=== PATIENT | female | born 1965 | race Caucasian/White ===

== ENCOUNTER 2017-02-16 21:50 | Emergency (ER) | payer OTHER ==
[~2017-02-16] VITALS: Ht 170.2 cm; Wt 119.2 kg
[~2017-02-16 21:50] MED LIST: BUPR75TA20 PO; CITA40TA4 PO; HYDR12.55 PO; ONDA4TAB10 SL
[2017-02-16 21:54] VITALS: TEMP 37.1; Ht 170.2 cm; Wt 119.2 kg
[2017-02-16] MEDS ORDERED: OXYCODONE/ACETAMINOPHEN 5-325 TAB PO STA (22:03)
--- NOTE | 2017-02-16 22:31 | DIAGNOSTIC IMAGING REPORT ---
RIGHT WRIST MIN 3 VIEWS ROUTINE CLINICAL HISTORY: Pt fell injuring right wrist Right trauma. Pain. COMPARISON: None. DISCUSSION: The bones and joint spaces appear intact. There is no evidence of fracture, dislocation or bony disease. There is no evidence for soft tissue swelling. IMPRESSION: Negative study. Electronically signed by: Charlie Dominguez M.D. 02/16/2017 10:30 PM Dictated Date/Time: 02/16/2017 10:29 PM
--- NOTE | 2017-02-16 22:34 | DIAGNOSTIC IMAGING REPORT ---
RIGHT ELBOW MIN 3 VIEWS ROUTINE CLINICAL HISTORY: Pt fell injuring right elbow Right trauma. Pain. COMPARISON: None. DISCUSSION: Cortical fracture radial head. Fracture extends to the articular services. No significant displacement. Joint effusion. Study is negative for dislocation. Pre-existing calcific medial and lateral epicondylitis. There is no evidence for soft tissue swelling. IMPRESSION: Fracture radial head. Nondisplaced. Joint effusion. Electronically signed by: Charlie Dominguez M.D. 02/16/2017 10:32 PM Dictated Date/Time: 02/16/2017 10:31 PM
[2017-02-16] MEDS ORDERED: CITA40TA4 PO (22:51)
[2017-02-16] MEDS ORDERED: TRIA37.5 PO (22:51)
[2017-02-16] MEDS ORDERED: BUTACAP10 PO (22:51)
[2017-02-16] MEDS ORDERED: AMLO-110 PO (22:51)
[2017-02-16] MEDS ORDERED: BUPR-79 PO (22:51)
[2017-02-16] MEDS ORDERED: FEXO1TAB49 PO (22:51)
--- NOTE | 2017-02-16 23:14 | EMERGENCY ROOM VISIT NOTE ---
ED Visit Note First contact with patient: 21:59 CHIEF COMPLAINT: Wrist injury HISTORY OF PRESENT ILLNESS: This 51-year-old female patient presents to the emergency department ambulatory complaining of pain in the right wrist after a fall. The patient states that she tripped and fell, landing onto her right arm. She reports pain in the right wrist with radiation into the right forearm and elbow. The patient is able to move their wrist and elbow. The patient states the pain is sharp and 5/10. No laceration, no weakness. No numbness or tingling. The patient denies any other injury. She did not hit her head. She denies any pain of the shoulder or hand. REVIEW OF SYSTEMS: A 6 system review of systems was performed with positives and pertinent negatives in the HPI. ALLERGIES: Morphine MEDICATIONS: See med list PMH: Hypertension SOCIAL HISTORY: The patient lives locally with family. Nonsmoker. PHYSICAL EXAM: Vital Signs: Reviewed Nurse's notes, vital signs stable. GENERAL : This is a 51-year-old female, in no acute distress, but appears to be in pain , well-developed, well-nourished. NEURO: Alert and oriented to person place and time. Normal sensation to light and sharp touch. MUSCULOSKELETAL: There is no deformity of the right elbow or wrist. There is tenderness to palpation of the right elbow and the lateral right wrist. There is no snuffbox tenderness. Range of motion of the elbow and wrist are full. No tenderness of the shoulder or humerus. No tenderness of the hand or fingers. Leather Grainer strength 5/5. Radial pulse 2+. SKIN: Normal and intact. The hand is warm and well perfused with capillary refill less than 2 seconds. RADIOGRAPHIC FINDINGS: RIGHT ELBOW MIN 3 VIEWS ROUTINE DISCUSSION: Cortical fracture radial head. Fracture extends to the articular services. No significant displacement. Joint effusion. Study is negative for dislocation. Pre-existing calcific medial and lateral epicondylitis. There is no evidence for soft tissue swelling. IMPRESSION: Fracture radial head. Nondisplaced. Joint effusion. RIGHT WRIST MIN 3 VIEWS ROUTINE DISCUSSION: The bones and joint spaces appear intact. There is no evidence of fracture, dislocation or bony disease. There is no evidence for soft tissue swelling. IMPRESSION: Negative study. EMERGENCY DEPARTMENT COURSE: I examined the patient. She was medicated with 1 tablet Percocet for pain. X-rays of the right elbow and wrist were reviewed by myself and radiology and showed a nondisplaced right radial head fracture. The patient was placed in an arm sling. Neuro vascular status was reassessed and was intact. Conservative measures were discussed with the patient. She will be given a short course of Percocet for pain. The PDMP was queried and no red flags were identified. She will follow-up with orthopedics. She verbalized understanding of my assessment and treatment plan. The patient was discharged home in good condition. DIAGNOSIS: Right radial head fracture Current/Historical Medications Scheduled Amlodipine (Norvasc), 5 MG PO DAILY Bupropion (Wellbutrin Sr), 150 MG PO BID Citalopram (Citalopram Hydrobromide), 1 TAB PO DAILY Ondasetron Odt (Zofran Odt), 4-8 MG SL Q6H Triamterene/Hctz (Dyazide 37.5MG/25MG), 1 TAB PO DAILY Scheduled PRN Npsxkehodb-Pmdktpxfaqcwn-Flqko (Esgic 325/50/40MG), 1 CAP PO Q4 PRN for Migraine Fexofenadine Hcl (Ellie Allergy), 1 TAB PO DAILY PRN for ALLERGIC REACTION Allergies Coded Allergies: Morphine (Verified Allergy, Severe, GI SYMPTOMS, 10/22/16) Vital Signs Date Time Temp Pulse Resp B/P Pulse Ox O2 Delivery O2 Flow Rate FiO2 02/16/17 23:30 78 16 158/95 95 02/16/17 21:54 37.1 96 18 164/109 93 Room Air Medications Administered Medications (Trade) Dose Ordered Sig/Simba Route Start Time Stop Time Status Last Admin Dose Admin Oxycodone/ Acetaminophen (Percocet 5-325mg Tab) 1 tab NOW STAT PO 02/16/17 22:03 02/16/17 22:04 DC 02/16/17 22:32 1 TAB Oxycodone/ Acetaminophen (Percocet 5/ 325MG Home Pack) 1 homepack UD ONCE PO 02/16/17 23:15 02/16/17 23:16 DC 02/16/17 23:20 1 HOMEPACK Departure Information Impression Primary Impression: Radial head fracture Dispostion Home / Self-Care Condition GOOD Prescriptions Oxycodone/Acetaminophen 5MG/325MG (PERCOCET 5MG/325MG) Tab 1-2 TABS PO Q4H Y for Pain, #15 TAB For Initial Treatment Prov: Zulma Reynoso PA-C 02/17/17 Referrals Leoncio Corbin M.D. (PCP) Patient Instructions My [facility] Additional Instructions You have been treated in the Emergency Department for arm pain. You have received pain medicine in the emergency department which impairs your ability to operate a vehicle. It is illegal for you to drive after receiving these medicines. You have been prescribed Percocet to be used for pain control. This is a narcotic medication. You cannot drive or consume alcohol while on this medicine. This medicine should only be used for pain that cannot be controlled with euji-nro-pjjakne pain medicines. For pain control, you can use the following gdlg-lje-gkkjyhc medicines (if >12 yo): - Regular strength (325mg/tab) Tylenol (acetaminophen) 2 tabs every 4-6 hours as needed. Do not exceed 12 tablets in a 24 hour period. Avoid taking more than 4 grams (4000 mg) of Tylenol per day. This includes any other sources of acetaminophen you may take on a regular basis. - Regular strength (200 mg/tab) Advil (ibuprofen) 1-2 tabs every 4-6 hours as needed. Do not exceed a dose of 3200 mg per day. If this is a recent injury (<24 hrs), ice can be applied to the area of pain for the first 3 days to help decrease pain and inflammation. Follow-up with orthopedics or your primary care provider if there is persistent or worsening pain. Return to the Emergency Department if your current symptoms worsen despite treatment course outlined above, or if you develop any of the following symptoms : intractable pain despite aforementioned treatment course or new onset of numbness or tingling of the fingers. Problem Qualifiers Primary Impression: Radial head fracture Encounter type: initial encounter Fracture type: closed Fracture alignment : nondisplaced Laterality: right Qualified Codes: S52.124A - Nondisplaced fracture of head of right radius, initial encounter for closed fracture
[2017-02-16] MEDS ORDERED: PERCOCET HOME PACK PO ONE (23:15)
[2017-02-16 23:30] VITALS: BP 158/95; PULSE 78; O2SAT 95
[2017-02-17] MEDS ORDERED: OXYC-57 PO (19:03)
== END 2017-02-16 23:31 | disposition home or self-care (01) ==
LOC: C.EDB 21:51 → C.EDA 23:31
DX: S52.124A Nondisplaced fracture of head of right radius, initial encounter for closed fracture (principal); W01.0XXA Fall on same level from slipping, tripping and stumbling without subsequent striking against object, initial encounter; I10 Essential (primary) hypertension; Z79.899 Other long term (current) drug therapy

== ENCOUNTER 2019-01-28 09:31 | Inpatient (IN) ==
[2019-01-28] MEDS ORDERED: methylPREDNISolone 125 MG/2 ML VIAL IV STA (10:02)
[2019-01-28] MEDS ORDERED: ALBUT/IPRATROP 3MG/0.5MG NEB 3 ML VIAL NEB STA ×2 (10:02→15:49)
[2019-01-28] MEDS ORDERED: FAMOTIDINE 20MG/5ML IV PUSH IV STA (10:15)
[2019-01-28 10:32] LABS: Basophils # (auto) 0.02 K/uL (0-0.2); Basophils % (auto) 0.3 %; Eosinophils # (auto) 0.24 K/uL (0-0.5); Eosinophils % (auto) 3.9 %; Hematocrit (blood only) 44.2 % (37-47); Hemoglobin 14.9 g/dL (12.0-16.0); Immature Granulocytes # (auto) 0.01 K/uL (0.00-0.02); Immature Granulocytes % (auto) 0.2 %; Lymphocytes # (auto) 1.13 K/uL (1.2-3.4); Lymphocytes % (auto) 18.3 %; Mean Corpuscular Hgb Conc 33.7 g/dL (32-36); Mean Corpuscular Volume 87.5 fL (80-100); Mean Platelet Volume 9.9 fL (7.4-10.4); Monocytes # (auto) 0.44 K/uL (0.11-0.59); Monocytes % (auto) 7.1 %; Neutrophils # (auto) 4.33 K/uL (1.4-6.5); Neutrophils % (auto) 70.2 %; Platelet Count 277 K/uL (130-400); RDW Coefficient of Variation 13.6 % (11.5-14.5); RDW Standard Deviation 43.2 fL (36.4-46.3); Red Blood Count 5.05 M/uL (4.2-5.4); White Blood Count 6.17 K/uL (4.8-10.8)
[2019-01-28 10:50] LABS: Influenza A virus by PCR Neg for Influ A (Neg); Influenza B virus by PCR Neg for Influ B (Neg)
[2019-01-28 10:53] LABS: Alanine Aminotransferase 19 U/L (12-78); Albumin Level 3.4 gm/dl (3.4-5.0); Aspartate Aminotransferase 10 U/L (15-37); BUN Creatinine Ratio 17.3 (10-20); Blood Urea Nitrogen 13 mg/dl (7-18); Calcium 8.8 mg/dl (8.5-10.1); Carbon Dioxide 32 mmol/L (21-32); Chloride 103 mmol/L (98-107); Creatinine Clr Calc Pharmacy 115.5 ml/min; Est GFR (Non-African American) 93.1; Glucose 105 mg/dl (70-99); Potassium 3.7 mmol/L (3.5-5.1); Sodium 140 mmol/L (136-145)
[2019-01-28 10:58] LABS: Albumin Globulin Ratio 0.8 (0.9-2); Alkaline Phosphatase 35 U/L (45-117); Bilirubin,Total 0.7 mg/dl (0.2-1); Globulin 4.2 gm/dl (2.5-4.0); NT Pro B Type Natriuretic Pept 66 pg/ml (0-900); Total Protein 7.6 gm/dl (6.4-8.2); Troponin I < 0.015 ng/ml (0-0.045)
[2019-01-28] MEDS ORDERED: ALBUT/IPRATROP 3MG/0.5MG NEB 3 ML VIAL NEB ONE (11:00)
[2019-01-28] MEDS ORDERED: ACETAMINOPHEN 1,000 MG/100 ML VIAL IV STA (11:00)
--- NOTE | 2019-01-28 14:04 | XRay Report ---
XR chest 2V routine CLINICAL HISTORY: sob, cough COMPARISON STUDY: Chest radiograph December 27, 2017. FINDINGS: There are cholecystectomy clips. Lung volumes are mildly diminished. There is no pneumothor ax. Bibasilar opacities favor atelectasis. There is no consolidation. Cardiomegaly without evidence f or pulmonary edema. Appearance of the chest is unchanged. IMPRESSION: 1. No acute cardiopulmonary findings. 2. Bibasilar opacities which favor atelectasis. Electronically signed by: Robb Stanford M.D. 01/28/2019 2:02 PM
[2019-01-28] MEDS ORDERED: MAGNESIUM SULFATE / D5W 1 GM/100 ML BAG IV ONE (14:23)
[2019-01-28] MEDS ORDERED: SODIUM CHLORIDE 0.9% 1000ML 1,000 ML IV ONE (15:49)
--- NOTE | 2019-01-28 16:21 | History & Physical Report ---
Date of Service January 28, 2019 Assessment & Plan (1) Asthma exacerbation: The patient received IV steroids in the emergency department. She will be continued on such with IV Solu-Medrol 60 mg every [address] on duo nebs every 4 hours. She has very poor air movement and will need aggressive pulmonary toilet with incentive spirometry and flutter valve. Placed on Mucinex 1200 mg twice daily. The patient follows with Kb Smith from the pulmonary clinic and she requests formal pulmonary consultation while here. Fortunately she has no evidence of complicating pneumonia on chest x-ray today. Continue her Dulera and Singulair. Due to tachycardia from the nebs and increased cardiac output in the setting of her asthma exacerbation will place on telemetry. Present on Admission?: Yes (2) Chest tightness: I believe this is due to severe bronchoconstriction from her asthma exacerbation. The symptoms are worse with deep breathing and with coughing. Initial troponin was negative. She does have an abnormal EKG. See discussion below "abnormal ECG." Present on Admission?: Yes (3) Acute frontal sinusitis: The patient has had several weeks of upper respiratory symptoms including significant frontal and maxillary sinus pressure and tenderness. I do believe she has sinus infection. The sinus infection may be exacerbating her asthma. We will change her doxycycline to Ceftin 500 mg twice a day and treat for 10 days. Add saline spray, Nasacort, and Ellie 60 mg twice a day. The Mucinex will also help sinus symptoms. Present on Admission?: Yes (4) Morbid obesity: BMI just shy of 40. The patient is actively trying to lose weight. (5) Anxiety: Continue Celexa (6) Abnormal ECG: Patient has ST segment depressions in the anterior leads. In 2011 her EKG also showed anterior ST segment changes. However the EKG today shows modestly worse ST depressions in the same leads. She does have a family history of coronary artery disease. At the very least we will obtain 2D echocardiogram. Consider outpatient stress test. Initial troponin is negative and we will repeat another troponin later tonight. The chest tightness that she described is likely due to bronchoconstriction from her asthma as well as musculoskeletal pain from coughing. (7) CYNTHIA (obstructive sleep apnea): The patient could not tolerate a standard mask for CYNTHIA. I suggested that she talk with Kb Smith about a different type of mask as an outpatient. (8) Essential (primary) hypertension: Continue amlodipine. Her blood pressures are markedly elevated at this time. She reports that her last blood pressure in the office was in the 160s systolic. Her amlodipine may be in need of an increase to 10 mg a day. Follow blood pressures carefully (9) Psoriatic arthritis: This appears to be quiesced sent at this time. We will hold her Mobic while she is on high-dose steroids. (10) QT prolongation: Her EKG in 2011 also showed QTC prolongation. Potassium magnesium levels are normal. The QTc prolongation may be due to her Celexa. Again we are planning to obtain echocardiogram this admission. In light of strong family history of heart disease consider formal cardiology consultation as an outpatient in the near future. She will placed on telemetry during her stay. (11) DVT prophylaxis: Lovenox 40 mg daily Total time 60-minutes History of Present Illness Chief Complaint: cough, wheezing Primary Care Provider: Leoncio Corbin MD 53yo female with history of asthma who presents with chest tightness, wheezing, and cough starting Tuesday evening. Cough has been dry. She was called in doxcycline by her PCP on for "sinusitis" and has been on such since that time. She had had a URI earlier in January for about 1 week, had 2-3 days where her sinuses were OK, then Tuesday of this week the sinus symptoms returned. She started using her albuterol inhaler on Tuesday night. She has had some mild to moderate dyspnea, much worse w/ activity. Some facial pain. NO fever. Because of her chest tightness and dyspnea she came to the ER for evaluation. Allergies Allergy/AdvReac Type Severity Reaction Status Date / Time morphine AdvReac Severe GI SYMPTOMS Verified 01/28/19 20:23 Home Medications Home Medications Medication Instructions Recorded Confirmed Type amlodipine 5 mg PO DAILY 01/28/19 01/28/19 History citalopram 40 mg PO DAILY 01/28/19 01/28/19 History meloxicam 7.5 mg PO DAILY 01/28/19 01/28/19 History mometasone-formoterol [Dulera] 2 puff INHALATION Q12H 01/28/19 01/28/19 History montelukast [Singulair] 10 mg PO PM 01/28/19 01/28/19 History Past Med/Surg History Medical History Radial head fracture (Acute) right - 2018 Asthma Bronchitis Pneumonia Psoriatic arthritis Sinus infection Surgical History H/O arthroscopy of shoulder Hx of cholecystectomy Family History Father , age 59 Coronary heart disease first MD age 35 Heart disease CHF Mother , age 72 COPD (chronic obstructive pulmonary disease) Social History Preferred Language: Yoruba Communication Ability: Effective marital status: marital status details: 2 kids Current Living Situation: Family current occupational status: employed 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 Smoking Status: Never smoker Hx Alcohol Use: Yes Review of Systems Constitutional: + weight loss (intentional ); no fever, no anorexia and no weight gain Eyes: + dry eyes Ear, Nose, Mouth, Throat: + sinus pain/pressure; no nasal congestion and no sore throat Respiratory: + cough, + dyspnea on exertion, + pain on inspiration, + snoring and + wheezing; no sputum production Cardiovascular: as per Subjective / HPI and + edema (trace ) Gastrointestinal: no abdominal pain, no nausea, no vomiting and no diarrhea/loose stools Genitourinary (Female): + dysuria (for 2 weeks) Musculoskeletal: + joint pain (with swelling; knees, hips, etc) Integumentary: no rash headache - left side Psychiatric: + depression and + anxiety no diabetes Physical Exam Vital Signs (Past 24 Hours): Last Vital Signs Temp 36.8 C 01/28/19 09:33 Pulse 112 H 01/28/19 13:53 Resp 16 01/28/19 13:53 BP 167/124 H 01/28/19 13:53 Pulse Ox 94 01/28/19 13:53 Constitutional: well developed, well nourished, + ill appearing and + morbidly obese; no acute distress and no altered mental status Eyes: PERRL ENMT: Nose: + sinus tenderness (left frontal/left maxillary) Mouth: + oral mucosal abnormality (MM dry) Neck: ??thyroid enlargement vs prominent soft tissue Respiratory: no respiratory distress and no labored breathing Auscultation: + diminished lung sounds (severe - very poor air movement) and + wheezes; no crackles and no rhonchi Cardiovascular: Rate/Rhythm: + tachycardic Heart Sounds: normal S1 and normal S2; no murmur Vessels: posterior tibial pulses present and dorsalis pedis pulses present; no JVD Gastrointestinal (Abdomen): normal bowel sounds, soft, nontender, no hepatosplenomegaly Musculoskeletal: no cyanosis or clubbing, extremities motor strength 5/5 Skin: no rashes, warm and dry Neurologic: deep tendon reflexes 2+ bilaterally and moves all extremities Psychiatric: A+Ox3, euthymic affect Lymphatic: + cervical lymphadenopathy (b/l ) Results & Data Laboratory Results Laboratory Results - last 24 hr 01/28/19 01/28/19 01/28/19 10:00 10:20 10:20 WBC 6.17 RBC 5.05 Hgb 14.9 Hct 44.2 MCV 87.5 MCH 29.5 MCHC 33.7 RDW Std Deviation 43.2 RDW Coeff of Tiffany 13.6 Plt Count 277 MPV 9.9 Immature Gran % (Auto) 0.2 Neut % (Auto) 70.2 Lymph % (Auto) 18.3 [place] % (Auto) 7.1 Eos % (Auto) 3.9 Baso % (Auto) 0.3 Immature Gran # (Auto) 0.01 Neut # (Auto) 4.33 Lymph # (Auto) 1.13 L [place] # (Auto) 0.44 Eos # (Auto) 0.24 Baso # (Auto) 0.02 PT INR APTT PTT Ratio Sodium 140 Potassium 3.7 Chloride 103 Carbon Dioxide 32 Anion Gap 5.0 BUN 13 Creatinine 0.74 Est Cr Clr Drug Dosing 115.5 Est GFR ( Amer) 108.0 Est GFR (Non-Af Amer) 93.1 BUN/Creatinine Ratio 17.3 Glucose 105 H Calcium 8.8 Magnesium 2.0 Total Bilirubin 0.7 AST 10 L ALT 19 Alkaline Phosphatase 35 L Troponin I < 0.015 NT-Pro-B Natriuret Pep 66 Total Protein 7.6 Albumin 3.4 Globulin 4.2 H Albumin/Globulin Ratio 0.8 L Lipase 101 Influenza Type A (PCR) Neg for Influ A Influenza Type B (PCR) Neg for Influ B 01/28/19 01/28/19 01/28/19 20:43 20:43 21:43 WBC RBC Hgb Hct MCV MCH MCHC RDW Std Deviation RDW Coeff of Tiffany Plt Count MPV Immature Gran % (Auto) Neut % (Auto) Lymph % (Auto) [place] % (Auto) Eos % (Auto) Baso % (Auto) Immature Gran # (Auto) Neut # (Auto) Lymph # (Auto) [place] # (Auto) Eos # (Auto) Baso # (Auto) PT Cancelled 10.9 INR Cancelled 1.1 APTT Cancelled 25.5 PTT Ratio Cancelled 0.9 Sodium Potassium Chloride Carbon Dioxide Anion Gap BUN Creatinine Est Cr Clr Drug Dosing Est GFR ( Amer) Est GFR (Non-Af Amer) BUN/Creatinine Ratio Glucose Calcium Magnesium Total Bilirubin AST ALT Alkaline Phosphatase Troponin I 0.042 NT-Pro-B Natriuret Pep Total Protein Albumin Globulin Albumin/Globulin Ratio Lipase Influenza Type A (PCR) Influenza Type B (PCR) Diagnostic Findings CXR - IMPRESSION: 1. No acute cardiopulmonary findings. 2. Bibasilar opacities which favor atelectasis. EKG - my reading - NSR, incomplete RBBB with RSR' pattern; anterior ST flattening and depression --- in comparison to [address] changes are old/chronic but modestly more prominent Code Status & VTE Plan Code Status level 1 full VTE Prophylaxis Plan VTE Prophylaxis will be ordered: Yes (1) Asthma exacerbation Asthma persistence: unspecified Asthma severity: unspecified severity Qualified Code(s): J45.901 - Unspecified asthma with (acute) exacerbation (2) Acute frontal sinusitis Recurrence: non-recurrent Qualified Code(s): J01.10 - Acute frontal sinusitis, unspecified
[2019-01-28] MEDS: methylPREDNISolone 60 MG in SYRINGE 0 ML IV SCH (18:08)
[2019-01-28] MEDS ORDERED: ALUMINUM/MAGNESIUM SUSP 30 ML UDC PO PRN (20:00)
[2019-01-28] MEDS ORDERED: ONDANSETRON INJ 2 MG/ML 2 ML VIAL IV PRN (20:00)
[2019-01-28] MEDS ORDERED: SODIUM CHLORIDE 0.9% 1000ML 1,000 ML IV SCH (20:00)
[2019-01-28] MEDS ORDERED: SODIUM CHLORIDE 0.65% NA SOLN 45 ML (OCEAN) PRN (20:00)
[2019-01-28] MEDS ORDERED: MAGNESIUM HYDROXIDE SUSP 30 ML UDC PO PRN (20:00)
[2019-01-28] MEDS ORDERED: ACETAMINOPHEN 500 MG TAB PO PRN (20:00)
[2019-01-28] MEDS: AMLODIPINE BESYLATE 5 MG TAB PO SCH (21:15)
[2019-01-28] MEDS: FEXOFENADINE 60 MG TAB PO SCH (21:15)
[2019-01-28] MEDS: TRIAMCINOLONE ACET NASAL SPRAY 10.8ML BTL NAE SCH (21:15)
[2019-01-28] MEDS: guaiFENesin 600 MG TABCR PO SCH (21:15)
[2019-01-28] MEDS: MONTELUKAST SODIUM 10 MG TABLET PO SCH (21:15)
[2019-01-28] MEDS: ENOXAPARIN INJ 40 MG/0.4 ML SYR SQ SCH ×2 (22:00→22:22)
[2019-01-28 22:02] LABS: INR 1.1 (0.9-1.1); Partial Thromboplastin Ratio 0.9; Partial Thromboplastin Time 25.5 Seconds (21.0-31.0); Prothrombin Time 10.9 Seconds (9.0-12.0)
[2019-01-28] MEDS: cefUROXime axetil 500 MG TAB PO SCH (22:26)
[2019-01-28] MEDS: MOMETASONE/FORMOTEROL INH SCH (22:34)
[2019-01-28] MEDS: ALBUT/IPRATROP 3MG/0.5MG NEB 3 ML VIAL NEB SCH (23:45)
[2019-01-29] MEDS: ALBUT/IPRATROP 3MG/0.5MG NEB 3 ML VIAL NEB SCH ×7 (00:50→23:28)
[2019-01-29] MEDS: methylPREDNISolone 60 MG in SYRINGE 0 ML IV SCH ×2 (06:13)
[2019-01-29] MEDS: FEXOFENADINE 60 MG TAB PO SCH ×2 (07:43→21:25)
[2019-01-29] MEDS: guaiFENesin 600 MG TABCR PO SCH ×2 (07:43→21:25)
[2019-01-29] MEDS: cefUROXime axetil 500 MG TAB PO SCH ×2 (07:43→21:25)
[2019-01-29] MEDS: LACTOBACILLUS ACIDOPHILUS (FLORANEX) TAB PO SCH ×3 (07:45→18:23)
[2019-01-29] MEDS: CITALOPRAM 40 MG TAB PO SCH (07:45)
[2019-01-29] MEDS: AMLODIPINE BESYLATE 5 MG TAB PO SCH (07:45)
[2019-01-29] MEDS: MOMETASONE/FORMOTEROL INH SCH ×2 (07:50→21:25)
[2019-01-29] MEDS: TRIAMCINOLONE ACET NASAL SPRAY 10.8ML BTL NAE SCH (07:52)
[2019-01-29] MEDS ORDERED: AMLODIPINE BESYLATE 5 MG TAB PO ONE (09:02)
--- NOTE | 2019-01-29 10:14 | Consultation Report ---
DATE OF CONSULTATION: 01/29/2019 PULMONARY CONSULTATION TIME: 9:30 a.m. REPORT OF CONSULTATION: The patient was seen in room 217. HISTORY OF PRESENT ILLNESS: She is a 53-year-old female with a history of bronchial asthma for approximately 3 years. However, she relates that when she was in her 30s, she would always have some symptoms in the fall and spring. Subsequently, she then would develop bronchitis or pneumonia in the fall and spring. She was not diagnosed with asthma until a few years ago. At one point in time, she was allergy tested and it was negative. Nonetheless, her symptoms have been very consistent. One to two weeks ago, she had upper respiratory symptoms with nasal congestion and nasal mucus. Subsequently, it seemed that it was likely a sinus infection. She was having some headaches and discomfort. She called her primary physician's office approximately 4 days ago. Doxycycline was ordered for a presumed sinusitis. She was having ear and face pain with headaches. She had postnasal drip that was quite bothersome. She had some sore throat. On Tuesday, the , she began to develop chest tightness and shortness of breath. She then had wheezing. She had night sweats for 1 night, although she says she is starting to get a change of life type night sweats at times. She has an albuterol inhaler that she was utilizing without much improvement. She also had an albuterol nebulizer that was not helping. Subsequently, she came to the ER yesterday where she was very tight and subsequently admitted. The patient has 3 dogs and 1 cat at home. She does not notice that being around them increases her symptoms. She is very sensitive to the smell of neighbors' hay typically in June. She notices symptoms after mowing her grass on a riding mower especially in the spring. She has lived in the same home for 29 years. Recently, she was at a hockey tournament for 12-year-old boys. She thought she may have been exposed to something there that resulted in her infection or symptoms. The patient is sensitive to campfire smoke. She states on one occasion, she has had to go to the ER after campfire smoke exposure. She does not smoke and has never smoked. PAST SURGICAL HISTORY: 1. Shoulder surgery. 2. Cholecystectomy. PAST MEDICAL HISTORY: 1. Asthma. 2. Pneumonia. 3. Obesity. 4. Anxiety. 5. Hypertension. 6. Psoriatic arthritis. 7. Right radius fracture. 8. Childbirth x1. 9. Sleep apnea diagnosed from home sleep study 2016, intolerant of CPAP. FAMILY HISTORY: Father at age 59, coronary artery disease. Mother at age 72, COPD. 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 REVIEW OF SYSTEMS: Joint pain secondary to her psoriatic arthritis. These have increased in the relatively recent past. Some dysuria for the past 2 weeks. Chronic insomnia for many years. This would be mainly sleep onset insomnia. It may be related to her anxiety or depression. History of snoring. There have been no observed apneas. She is fatigued and tired during the day, but not necessarily sleepy. MEDICATIONS AT HOME: 1. Amlodipine 5 mg daily. 2. Citalopram 40 mg daily. 3. Meloxicam 7.5 mg daily. 4. Dulera 2 puffs q. 12 hours. 5. Montelukast 10 mg daily. 6. Albuterol HFA. 7. Albuterol by nebulizer p.r.n. PHYSICAL EXAMINATION: VITAL SIGNS: The patient is a 53-year-old female who was cooperative, alert and oriented. She was in no distress at rest. Weight is 114.1 kilograms. BMI is 39.4. HEENT: Pupils were reactive to light. Nares were unremarkable. Mouth exam shows a Mallampati grade 3 pharynx. Tongue rides high. No erythema or exudate was noted. NECK: Palpation of the neck reveals no lymph nodes. She does have a large neck. HEART: Cardiac rate was 100 per minute. Rhythm was regular. Blood pressure elevated at 167/100. It has been higher than normal since she came in. LUNGS: Respiratory rate was 18 breaths per minute and not labored. Saturation 93%. Taking any deep breaths would result in coughing. Mild rales were heard posteriorly, but no wheezes heard. ABDOMEN: Obese. It was soft and nontender. Bowel sounds were normal. EXTREMITIES: Showed no cyanosis, clubbing or edema. LABORATORY DATA: White count is 6.17. Hemoglobin 14.9. Platelets 277,000. Eosinophils were 3.9%. Total eosinophils were normal at 0.24. Coags were normal. Electrolytes showed sodium 140, potassium 3.7, chloride 103, bicarbonate 32, which is at the upper limits of normal. BUN 13, creatinine 0.74. Blood sugar 105. Liver functions were not elevated. Troponins were negative x2. Flu test was negative. Chest x-ray done yesterday suggested that the patient may not have taken a deep breath. Heart size was at least top normal. Cannot exclude minimal atelectasis at the bases, but no true infiltrates were noted. IMPRESSION: 1. Asthma with exacerbation. 2. Obstructive sleep apnea - untreated. 3. Chronic insomnia. COMMENTS AND RECOMMENDATIONS: The patient seems clinically improved. She indicates she only feels modestly better. She was not tight when I listen to her, but she would cough with any deep breaths. Her history seems compatible with asthma, although she was allergy tested previously and all was negative. She notices she is especially bothered by hay. We would check a hypersensitivity pneumonitis profile. Currently, she is on methylprednisolone 60 mg IV q. 6 hours. I would try to cut that down very quickly. In the past, she has had significant emotional lability with steroids. I believe in light of her improvement that dose can be substantially decreased. She is receiving the DuoNebs q. 4 hours. She is maintained on her montelukast and Dulera. I believe a peak flow meter would be beneficial for her to follow her course. Regarding the sleep apnea, she did have an in-lab sleep study years ago that she states was negative. She had a home sleep study done over 3 nights in 2016. It clearly looked like she had sleep apnea with an apnea-hypopnea index cumulatively of 15 when using the standard 4% desaturation rule. However, there was a total of only 6 hours of recorded time in 3 nights. I believe it would be most appropriate to have the patient get a new in-lab sleep study and then go from there. She does have insomnia by history. I suspect she has some sleep hygiene issues and this is exacerbated by anxiety and depression. Thank you for asking me to assist in her care.
[2019-01-29 11:25] LABS: Calcium 9.1 mg/dl (8.5-10.1); Est GFR (African American) 91.3; Est GFR (Non-African American) 78.8; Magnesium 2.2 mg/dl (1.8-2.4); Potassium 3.5 mmol/L (3.5-5.1)
[2019-01-29] MEDS ORDERED: HydrALAZINE HCL 20 MG/ML VIAL IV PRN (19:56)
--- NOTE | 2019-01-29 20:16 | Hospitalist Progress Note ---
Date of Service January 29, 2019 Assessment & Plan (1) Asthma exacerbation: Improved but still with diminished air movement throughout and evidence of atelectasis on imaging and on examination. No pneumonia Having significant insomnia and high blood pressure with IV steroids -Pulmonology saw the patient and agreed with diagnosis of asthma exacerbation and checked hypersensitivity pneumonitis panel -Decreased dose of IV Solu-Medrol to 40 mg IV every 12 hours -Continue albuterol nebs every 4 hours. --Continues to have very poor air movement-continue with aggressive pulmonary toilet with incentive spirometry and flutter valve. -Continue Mucinex 1200 mg twice daily. -Continue her Dulera and Singulair. -Continue fexofenadine 60 mg p.o. twice daily (2) Chest tightness: -Likely secondary to severe bronchoconstriction from her asthma exacerb ation. Is improved today Serial troponin x3- Echocardiogram without wall motion abnormalities She does have an abnormal EKG. See discussion below "abnormal ECG." (3) Acute frontal sinusitis: The patient has had several weeks of upper respiratory symptoms including significant frontal and maxillary sinus pressure and tenderness. I do believe she has sinus infection. The sinus infection may be exacerbating her asthma. Reports no headache or facial pain today and questions if maybe the pain was from high blood pressure Nonetheless, we will continue treatment with Ceftin 500 mg p.o. twice a day- today is day #2 -Continue saline spray, Nasacort, and Ellie 60 mg twice a day. The Mucinex will also help sinus symptoms. (4) Morbid obesity: BMI 39.4 The patient is actively trying to lose weight. (5) Anxiety: Continue Celexa (6) Abnormal ECG: Patient has ST segment depressions in the anterior leads. In 2011 her EKG also showed anterior ST segment changes. However the EKG on admission shows modestly worse ST depressions in the same leads. She does have a family history of coronary artery disease. As above, troponin serially is negative and echo without wall motion abnormalities No further evaluation needed at this time (7) CYNTHIA (obstructive sleep apnea): The patient could not tolerate a standard mask for CYNTHIA. -Follow-up with sleep medicine as an outpatient (8) Essential (primary) hypertension: Blood pressures significantly elevated here likely secondary to asthma exacerbation and IV Solu-Medrol -Increase amlodipine to 10 mg daily -Add on IV hydralazine as needed systolic blood pressure greater than 180 and diastolic blood pressure greater than 110 -Continue to follow blood pressures -Also tapering down the dose of her IV steroids as above (9) Psoriatic arthritis: This appears to be quiesced sent at this time. We will hold her Mobic while she is on high-dose steroids. (10) QT prolongation: Her EKG in 2012 also showed QTC prolongation. QTC here is 482 Potassium and magnesium levels are normal. The QTc prolongation may be due to her Celexa. Echocardiogram without structural abnormalities No events on telemetry No further evaluation needed at this time (11) Insomnia: Add Ambien 5 mg p.o. nightly as needed insomnia (12) DVT prophylaxis: Lovenox 40 mg daily Disposition-remain on telemetry overnight, possible discharge to home tomorrow if improved Subjective Patient feeling much better today, less short of breath. Minimal cough. Denies headache, still has some chest tightness. Also complaining of insomnia-did not sleep at all last night and is requesting something for that. She is worried about her blood pressure being elevated. Telemetry with normal sinus rhythm to sinus tachycardia rates from the 60s-100s Review of Systems All systems reviewed & are unremarkable except as noted in HPI & below Physical Exam Vital Signs (Past 24 Hours): Last Vital Signs Temp 36.6 C 01/29/19 19:27 Pulse 72 01/29/19 19:45 Resp 18 01/29/19 19:45 BP 177/101 H 01/29/19 19:27 Pulse Ox 96 01/29/19 19:45 Constitutional: WD/WN, vitals as above Eyes: PERRL, conjunctivae normal, anicteric sclerae ENMT: external ear and nose normal, oropharynx normal Neck: trachea midline, no thyromegaly Respiratory: normal respiratory effort Auscultation: + diminished lung sounds (Significantly diminished throughout) and + crackles (At the bases bilaterally that clear with deep inspiration and cough); no wheezes Cardiovascular: RRR, no murmur, no edema Gastrointestinal (Abdomen): normal bowel sounds, soft, nontender, no hepatosplenomegaly Musculoskeletal: Extremities: extremities normal to inspection; no cyanosis and no clubbing Skin: no rashes, warm and dry Neurologic: moves all extremities and awake; no focal motor deficits Psychiatric: A+Ox3, euthymic affect Results & Data Laboratory Results 01/29/19 01/29/19 01/29/19 Range/Units 10:11 10:11 10:11 PT INR APTT PTT Ratio Sodium 141 (136-145) mmol/L Potassium 3.5 (3.5-5.1) mmol/L Chloride 108 H (98-107) mmol/L Carbon Dioxide 23 (21-32) mmol/L Anion Gap 10.0 (3-11) BUN 16 (7-18) mg/dl Creatinine 0.85 (0.6-1.2) mg/dl Est Cr Clr Drug Dosing 101.0 ml/min Est GFR ( Amer) 91.3 Est GFR (Non-Af Amer) 78.8 BUN/Creatinine Ratio 19.0 (10-20) Glucose 211 H (70-99) mg/dl Calcium 9.1 (8.5-10.1) mg/dl Magnesium 2.2 (1.8-2.4) mg/dl Troponin I < 0.015 (0-0.045) ng/ml Saccharo. viridis Ab Pending T. candidus Antibody Pending T. vulgaris Antibody Pending Aspergill fumigatus Ab Pending Micropolyspora faeni Ab Pending Paradise Serum Precipitin Pending 01/28/19 01/28/19 01/28/19 Range/Units 21:43 20:43 20:43 PT 10.9 Cancelled INR 1.1 Cancelled APTT 25.5 Cancelled PTT Ratio 0.9 Cancelled Sodium (136-145) mmol/L Potassium (3.5-5.1) mmol/L Chloride (98-107) mmol/L Carbon Dioxide (21-32) mmol/L Anion Gap (3-11) BUN (7-18) mg/dl Creatinine (0.6-1.2) mg/dl Est Cr Clr Drug Dosing ml/min Est GFR ( Amer) Est GFR (Non-Af Amer) BUN/Creatinine Ratio (10-20) Glucose (70-99) mg/dl Calcium (8.5-10.1) mg/dl Magnesium (1.8-2.4) mg/dl Troponin I 0.042 (0-0.045) ng/ml Saccharo. viridis Ab T. candidus Antibody T. vulgaris Antibody Aspergill fumigatus Ab Micropolyspora faeni Ab Paradise Serum Precipitin (1) Asthma exacerbation Asthma persistence: unspecified Asthma severity: unspecified severity Qualified Code(s): J45.901 - Unspecified asthma with (acute) exacerbation (2) Acute frontal sinusitis Recurrence: non-recurrent Qualified Code(s): J01.10 - Acute frontal sinusitis, unspecified
[2019-01-29] MEDS: ENOXAPARIN INJ 40 MG/0.4 ML SYR SQ SCH (21:25)
[2019-01-29] MEDS: MONTELUKAST SODIUM 10 MG TABLET PO SCH (21:25)
[2019-01-29] MEDS: ZOLPIDEM TARTRATE 5 MG TAB PO PRN (21:25)
[2019-01-29] MEDS: methylPREDNISolone 40 MG in SYRINGE 0 ML IV SCH (21:26)
[2019-01-30] MEDS: ALBUT/IPRATROP 3MG/0.5MG NEB 3 ML VIAL NEB SCH ×3 (03:01→11:04)
[2019-01-30] MEDS: methylPREDNISolone 40 MG in SYRINGE 0 ML IV SCH (08:48)
[2019-01-30] MEDS: FEXOFENADINE 60 MG TAB PO SCH ×3 (08:48→19:48)
[2019-01-30] MEDS: cefUROXime axetil 500 MG TAB PO SCH ×2 (08:48→19:50)
[2019-01-30] MEDS: CITALOPRAM 40 MG TAB PO SCH (08:49)
[2019-01-30] MEDS: AMLODIPINE BESYLATE 5 MG TAB PO SCH (08:50)
[2019-01-30] MEDS: guaiFENesin 600 MG TABCR PO SCH ×2 (08:50→19:48)
[2019-01-30] MEDS: LACTOBACILLUS ACIDOPHILUS (FLORANEX) TAB PO SCH ×2 (08:51→11:20)
[2019-01-30] MEDS: MOMETASONE/FORMOTEROL INH SCH ×2 (08:52→19:49)
[2019-01-30] MEDS: TRIAMCINOLONE ACET NASAL SPRAY 10.8ML BTL NAE SCH ×2 (08:52→10:08)
--- NOTE | 2019-01-30 11:05 | Progress Note ---
DATE: 01/30/2019 PULMONARY PROGRESS NOTE TIME: 10:45 a.m. SUBJECTIVE: The patient's breathing is better. She is less short of breath. She is coughing less. She does not feel back to normal, however. Her blood pressure has been significantly higher than what it normally is. She denies excessive stress or anxiety from being in the hospital. OBJECTIVE: GENERAL: She appeared comfortable at rest. VITAL SIGNS: Temperature is 36.8. Heart rate 84 per minute. Rhythm regular. Blood pressure 171/103. LUNGS: Lung espinal were almost clear. Breath sounds were better heard. Some of the decreased breath sounds may be due to her body habitus. No wheezing heard. Scant rales heard posteriorly. Saturation 97% on room air. Peak flow done by myself with the patient was 400. Yesterday, peak flow was 360. She states her peak flow done early this morning was less than 300, but she did not do it standing and I suspect she did not give maximal effort as I was able to get her to do at the time of my exam. EXTREMITIES: Showed no cyanosis, clubbing or edema. LABORATORY DATA: No lab works done today. The hypersensitivity pneumonitis profile was pending. IMPRESSION: 1. Asthma with exacerbation. 2. Obstructive sleep apnea - intolerant of treatment. 3. Chronic insomnia. From a purely pulmonary perspective, the patient seems stable. I would have no objection to discharge whenever desired. I believe the steroids can be changed to prednisone 40 mg daily. I would encourage the patient to use her nebulizer when she gets home at least once or twice per day for a time until she feels that she is going to stay clear. She thinks she is unlikely to have further problems until the fall.
[2019-01-30] MEDS: SPIRONOLACTONE 25 MG TAB PO SCH (11:19)
--- NOTE | 2019-01-30 13:00 | Emergency Department Note ---
Entered by Jose A Luna acting as a scribe for Jeanne Gómez DO History of Present Illness General Chief complaint: Respiratory Problems Stated complaint: LOW PULSE OX, COUGH, CHEST HURTS Time Seen by Provider: 01/28/19 09:44 Source: patient History of Present Illness Onset (ago): day(s) (this morning) Location: chest Pain Consistency: + other (an episode) Maximum Pain Intensity: 4 Quality: + other (low oxygen saturation) Associated symptoms: + other (Positive for chest pain, a cough, facial pain, headache, night sweats, and a sore throat. Negative for vomiting and diarrhea.) The patient is a 53 year old female who presents to the emergency department with complaints of an episode of low oxygen saturation occurring this morning which she measured at home. The patient states that she had a sinus infection in the middle of last week. She notes that she then started taking doxycycline and began to feel a little better. She reports that she has been taking doxycycline for three full days. The patient states that her sinus infection then moved down into her chest. She notes that she has been having chest pain and a cough. She reports that she checked her pulse ox this morning, and she states that it was 93%, prompting her visit to the emergency department. She also complains of facial pain, a headache, night sweats, and a sore throat. She denies any vomiting and diarrhea. She notes that her heart rate was 111. She reports that she has a history of asthma, but she states that she did not use her nebulizer at home this morning. She states she was using it intermittently over the last 2 days. She notes that she also has a history of bronchitis and pneumonia. She reports that she has not been around any known sick contacts. Home Medications Home Medications Medication Instructions Recorded Confirmed Type amlodipine 5 mg PO DAILY 01/28/19 01/28/19 History citalopram 40 mg PO DAILY 01/28/19 01/28/19 History meloxicam 7.5 mg PO DAILY 01/28/19 01/28/19 History mometasone-formoterol [Dulera] 2 puff INHALATION Q12H 01/28/19 01/28/19 History montelukast [Singulair] 10 mg PO PM 01/28/19 01/28/19 History Allergies Allergy/AdvReac Type Severity Reaction Status Date / Time morphine AdvReac Severe GI SYMPTOMS Verified 01/28/19 20:23 Past Med/Surg History Medical History Radial head fracture (Acute) right - 2018 Asthma Bronchitis Pneumonia Psoriatic arthritis Sinus infection Surgical History H/O arthroscopy of shoulder Hx of cholecystectomy Family History Father , age 59 Coronary heart disease first OR age 35 Heart disease CHF Mother , age 72 COPD (chronic obstructive pulmonary disease) Social History Preferred Language: Telugu Communication Ability: Effective 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 and A total of 10 systems reviewed and were otherwise negative Physical Exam Vital Signs Vital Signs - 24 hr 01/29/19 15:17 01/29/19 15:31 01/29/19 19:27 Temperature 36.8 C 36.6 C Temperature Source Oral Oral Pulse Rate Pulse Rate [Apical] 97 H 108 H 101 H Pulse Rate [Right Finger] Respiratory Rate 14 16 16 Respiratory Effort / Characteristics Spontaneous Respiratory Depth Respiratory Pattern Blood Pressure [Left Arm] Blood Pressure [Right Arm] 153/87 H 177/101 H Blood Pressure Mean [Left Arm] Blood Pressure Mean [Right Arm] 109 126 Blood Pressure Position [Left Arm] Blood Pressure Position [Right Arm] Lying Sitting Pulse Oximetry 97 93 96 Oxygen Delivery Method Room Air Nebulizer Room Air 01/29/19 19:45 01/29/19 20:00 01/29/19 23:29 Temperature Temperature Source Pulse Rate Pulse Rate [Apical] 72 95 H Pulse Rate [Right Finger] Respiratory Rate 18 18 Respiratory Effort / Characteristics Non-Labored Spontaneous Non-Labored Spontaneous Non-Labored Spontaneous Respiratory Depth Normal Respiratory Pattern Regular Blood Pressure [Left Arm] Blood Pressure [Right Arm] Blood Pressure Mean [Left Arm] Blood Pressure Mean [Right Arm] Blood Pressure Position [Left Arm] Blood Pressure Position [Right Arm] Pulse Oximetry 96 96 Oxygen Delivery Method Nasal Cannula Room Air Room Air 01/29/19 23:35 01/30/19 00:12 01/30/19 03:01 Temperature 36.8 C Temperature Source Oral Pulse Rate 96 H Pulse Rate [Apical] 91 H 80 Pulse Rate [Right Finger] Respiratory Rate 18 18 Respiratory Effort / Characteristics Non-Labored Spontaneous Respiratory Depth Respiratory Pattern Blood Pressure [Left Arm] Blood Pressure [Right Arm] 170/100 H Blood Pressure Mean [Left Arm] Blood Pressure Mean [Right Arm] 123 Blood Pressure Position [Left Arm] Blood Pressure Position [Right Arm] Lying Pulse Oximetry 95 96 Oxygen Delivery Method Room Air Room Air 01/30/19 03:42 01/30/19 06:52 01/30/19 07:04 Temperature 36.9 C 36.8 C Temperature Source Oral Oral Pulse Rate Pulse Rate [Apical] 85 80 Pulse Rate [Right Finger] 79 Respiratory Rate 18 18 16 Respiratory Effort / Characteristics Non-Labored Spontaneous Respiratory Depth Respiratory Pattern Blood Pressure [Left Arm] 163/105 H 171/103 H Blood Pressure [Right Arm] Blood Pressure Mean [Left Arm] 124 125 Blood Pressure Mean [Right Arm] Blood Pressure Position [Left Arm] Lying Lying Blood Pressure Position [Right Arm] Pulse Oximetry 95 96 97 Oxygen Delivery Method Room Air Room Air Room Air 01/30/19 08:00 01/30/19 11:04 01/30/19 11:23 Temperature 36.8 C Temperature Source Oral Pulse Rate 84 Pulse Rate [Apical] Pulse Rate [Right Finger] 103 H 112 H Respiratory Rate 16 18 Respiratory Effort / Characteristics Non-Labored Spontaneous Non-Labored Spontaneous Respiratory Depth Normal Respiratory Pattern Regular Blood Pressure [Left Arm] Blood Pressure [Right Arm] 149/98 H Blood Pressure Mean [Left Arm] Blood Pressure Mean [Right Arm] 115 Blood Pressure Position [Left Arm] Blood Pressure Position [Right Arm] Sitting Pulse Oximetry 95 98 Oxygen Delivery Method Room Air Room Air Room Air GENERAL: alert, well appearing, well nourished, no distress, non-toxic EYE EXAM: normal conjunctiva, PERRL and EOM's grossly intact OROPHARYNX: no exudate, no erythema, lips, buccal mucosa, and tongue normal and mucous membranes are moist, mild maxillary sinus tenderness to percussion, no frontal/mastoid sinus tenderness to percussion. NECK: supple, no nuchal rigidity, no adenopathy, non-tender LUNGS: Clear to auscultation. Normal chest wall mechanics. Diminished breath sounds, no wheezes, rhonchi, and rales. HEART: no murmurs, S1 normal and S2 normal ABDOMEN: abdomen soft, non-tender, normo-active bowel sounds, no masses, no rebound or guarding. BACK: Back is symmetrical on inspection and there is no deformity, no midline tenderness, no CVA tenderness. SKIN: no rashes and no bruising UPPER EXTREMITIES: upper extremities are grossly normal. FROM, nml pulses b/l LOWER EXTREMITIES: No pitting edema. FROM, nml pulses b/l NEURO EXAM: Normal sensorium, cranial nerves II-XII grossly intact, normal speec h, no gross weakness of arms, no gross weakness of legs. Course 0947: Past medical records reviewed. The patient was evaluated in room C8, and a complete history and physical examination were performed. 1058: I reevaluated and updated the patient. She is still very diminished. 1232: I rechecked the patient. She is moving more air but has crackles at the right lung base. She is agreeable to chest X-ray. 1542: I reevaluated and updated the patient. She still feels tight in the chest and she feels as though she is not getting any again. She is still coarse bilaterally. We discussed options of admission vs. discharge. 1621: Upon reevaluation, the patient is stable. I discussed the results and treatment plan with the patient. She verbalizes understanding and agreement. I discussed the patient's case with BECKIE Roberts. The patient will be evaluated for further management and care. Consultations Consultation #1: I reviewed the patient's case with BECKIE Roberts. He will evaluate the patient for further management. Administered Medications Albuterol (Duoneb) 3 ml NEB Q4R LETTY Stop: 02/27/19 19:59 Last Admin: 01/30/19 11:04 Dose: 3 ml Documented by: [id number] Admin: 01/30/19 07:04 Dose: 3 ml Documented by: [id number] Admin: 01/30/19 03:01 Dose: 3 ml Documented by: [id number] Admin: 01/29/19 23:28 Dose: 3 ml Documented by: [id number] Admin: 01/29/19 19:45 Dose: 3 ml Documented by: [id number] Admin: 01/29/19 15:17 Dose: 3 ml Documented by: [id number] Admin: 01/29/19 11:01 Dose: 3 ml Documented by: [id number] Admin: 01/29/19 07:05 Dose: 3 ml Documented by: [id number] Admin: 01/29/19 03:00 Dose: 3 ml Documented by: [id number] Admin: 01/29/19 00:50 Dose: Not Given Documented by: [id number] Admin: 01/28/19 23:45 Dose: 3 ml Documented by: [id number] Amlodipine Besylate (Norvasc) 10 mg PO DAILY LETTY Stop: 03/01/19 08:59 Last Admin: 01/30/19 08:50 Dose: 10 mg Documented by: [id number] Cefuroxime Axetil (Ceftin) 500 mg PO BID LETTY Stop: 02/07/19 22:14 Last Admin: 01/30/19 08:48 Dose: 500 mg Documented by: [id number] Admin: 01/29/19 21:25 Dose: 500 mg Documented by: [id number] Admin: 01/29/19 07:43 Dose: 500 mg Documented by: [id number] Admin: 01/28/19 22:26 Dose: 500 mg Documented by: [id number] Citalopram Hydrobromide (Celexa) 40 mg PO DAILY LETTY Stop: 02/28/19 08:59 Last Admin: 01/30/19 08:49 Dose: 40 mg Documented by: [id number] Admin: 01/29/19 07:45 Dose: 40 mg Documented by: [id number] Enoxaparin Sodium (Lovenox) 40 mg SQ Q24H LETTY Stop: 02/27/19 21:59 Last Admin: 01/29/19 21:25 Dose: 40 mg Documented by: [id number] Admin: 01/28/19 22:22 Dose: 40 mg Documented by: [id number] Admin: 01/28/19 22:00 Dose: 40 mg Documented by: [id number] Fexofenadine HCl (Ellie) 60 mg PO BID LETTY Stop: 02/27/19 20:59 Last Admin: 01/30/19 10:08 Dose: Not Given Documented by: [id number] Admin: 01/29/19 21:25 Dose: 60 mg Documented by: [id number] Admin: 01/29/19 07:43 Dose: 60 mg Documented by: [id number] Admin: 01/28/19 21:15 Dose: 60 mg Documented by: [id number] Guaifenesin (Mucinex) 1,200 mg PO Q12 LETTY Stop: 02/27/19 20:59 Last Admin: 01/30/19 08:50 Dose: 1,200 mg Documented by: [id number] Admin: 01/29/19 21:25 Dose: 1,200 mg Documented by: [id number] Admin: 01/29/19 07:43 Dose: 1,200 mg Documented by: [id number] Admin: 01/28/19 21:15 Dose: 1,200 mg Documented by: [id number] Hydralazine HCl (Hydralazine Hcl) 10 mg IV Q8H PRN PRN Reason: SBP>180 or DBP>110 Stop: 02/28/19 19:55 Last Admin: 01/30/19 10:14 Dose: 10 mg Documented by: [id number] Lactobacillus Acidophilus (Floranex) 4 tab PO TIDM LETTY Stop: 02/28/19 07:59 Last Admin: 01/30/19 11:20 Dose: 4 tab Documented by: [id number] Admin: 01/30/19 08:51 Dose: 4 tab Documented by: [id number] Admin: 01/29/19 18:23 Dose: Not Given Documented by: [id number] Admin: 01/29/19 12:10 Dose: 4 tab Documented by: [id number] Admin: 01/29/19 07:45 Dose: 4 tab Documented by: [id number] Mometasone Furoate/Formoterol Fumar (Dulera Inhaler) 2 ea INH BID LETTY Stop: 02/27/19 21:59 Last Admin: 01/30/19 08:52 Dose: 2 ea Documented by: [id number] Admin: 01/29/19 21:25 Dose: 2 ea Documented by: [id number] Admin: 01/29/19 07:50 Dose: 2 ea Documented by: [id number] Admin: 01/28/19 22:34 Dose: 2 ea Documented by: [id number] Montelukast Sodium (Singulair) 10 mg PO PM LETTY Stop: 02/27/19 20:59 Last Admin: 01/29/19 21:25 Dose: 10 mg Documented by: [id number] Admin: 01/28/19 21:15 Dose: 10 mg Documented by: [id number] Spironolactone (Aldactone) 12.5 mg PO DAILY LETTY Stop: 03/01/19 09:59 Last Admin: 01/30/19 11:19 Dose: 12.5 mg Documented by: [id number] Triamcinolone Acetonide (Nasacort) 2 sprays BENEDICTO DAILY LETTY Stop: 02/27/19 20:59 Last Admin: 01/30/19 10:08 Dose: Not Given Documented by: [id number] Admin: 01/29/19 07:52 Dose: Not Given Documented by: [id number] Admin: 01/28/19 21:15 Dose: 2 sprays Documented by: [id number] Zolpidem Tartrate (Ambien) 5 mg PO HS PRN PRN Reason: Sleep Stop: 02/28/19 20:59 Last Admin: 01/29/19 21:25 Dose: 5 mg Documented by: [id number] Discontinued Medications Albuterol (Duoneb) 3 ml NEB NOW STA Stop: 01/28/19 10:03 Last Admin: 01/28/19 10:32 Dose: 3 ml Documented by: [id number] Albuterol (Duoneb) 12 ml NEB ONE ONE Stop: 01/28/19 11:01 Last Admin: 01/28/19 11:20 Dose: 12 ml Documented by: [id number] Albuterol (Duoneb) 3 ml NEB NOW STA Stop: 01/28/19 15:50 Last Admin: 01/28/19 16:17 Dose: 3 ml Documented by: [id number] Amlodipine Besylate (Norvasc) 5 mg PO DAILY LETTY Stop: 02/27/19 20:59 Last Admin: 01/29/19 07:45 Dose: 5 mg Documented by: [id number] Admin: 01/28/19 21:15 Dose: 5 mg Documented by: [id number] Amlodipine Besylate (Norvasc) 5 mg PO NOW ONE Stop: 01/29/19 09:03 Last Admin: 01/29/19 10:32 Dose: 5 mg Documented by: [id number] Famotidine (Pepcid 20mg Iv Push) 20 mg IV ONE STA Stop: 01/28/19 10:16 Last Admin: 01/28/19 10:33 Dose: 20 mg Documented by: [id number] Acetaminophen (Ofirmev) 1,000 mg in 100 mls @ 400 mls/hr IV NOW STA Stop: 01/28/19 11:14 Last Infusion: 01/28/19 11:49 Dose: 0 mls/hr Documented by: [id number] Admin: 01/28/19 11:07 Dose: 400 mls/hr Documented by: [id number] Magnesium Sulfate/Dextrose (Magnesium Sulfate / D5w) 1 gm in 100 mls @ 100 mls /hr IV ONE ONE Stop: 01/28/19 15:22 Last Infusion: 01/28/19 15:53 Dose: 0 mls/hr Documented by: [id number] Admin: 01/28/19 14:32 Dose: 100 mls/hr Documented by: [id number] Sodium Chloride (Nss 1000ml) 1,000 mls @ 999 mls/hr IV .Q1H1M ONE Stop: 01/28/19 16:49 Last Infusion: 01/28/19 17:40 Dose: 0 mls/hr Documented by: [id number] Admin: 01/28/19 16:18 Dose: 999 mls/hr Documented by: [id number] Methylprednisolone 60 mg/ (Syringe) 0.96 mls @ 1.5 mls/min IV Q6H LETTY Stop: 02/27/19 17:50 Last Admin: 01/29/19 06:13 Dose: 1.5 mls/min Documented by: [id number] Admin: 01/29/19 00:00 Dose: 1.5 mls/min Documented by: [id number] Admin: 01/28/19 18:08 Dose: 1.5 mls/min Documented by: [id number] Sodium Chloride (Nss 1000ml) 1,000 mls @ 100 mls/hr IV .Q10H LETTY Stop: 01/29/19 05:59 Last Infusion: 01/29/19 06:19 Dose: 0 mls/hr Documented by: [id number] Admin: 01/28/19 21:09 Dose: 100 mls/hr Documented by: [id number] Methylprednisolone 40 mg/ (Syringe) 0.64 mls @ 1.5 mls/min IV Q12 LETTY Stop: 02/28/19 20:59 Last Admin: 01/30/19 08:48 Dose: 1.5 mls/min Documented by: [id number] Admin: 01/29/19 21:26 Dose: 1.5 mls/min Documented by: [id number] Methylprednisolone (Solumedrol) 60 mg IV NOW STA Stop: 01/28/19 10:03 Last Admin: 01/28/19 10:32 Dose: 60 mg Documented by: [id number] Medical Decision Making Differential Diagnosis Differential diagnosis: Etiologies such as infections, reactive airway disease, COPD, pneumonia, pleural effusion, pulmonary edema, ARDS, pneumothorax, CHF, cardiac ischemia, cardiac tamponade, dysrhythmia, anemia, pulmonary embolism, musculoskeletal, gastrointestinal process, as well as others were entertained. Medical Records Attestation: I reviewed the patient's medical records. Home Medications Current Medication List: was personally reviewed by me Laboratory Data Attestation: I reviewed the patient's lab results. Result diagrams: 01/28/19 10:20 01/29/19 10:11 Lab Results 01/28/19 01/28/19 01/28/19 Range/Units 10:00 10:20 10:20 WBC 6.17 (4.8-10.8) K/uL RBC 5.05 (4.2-5.4) M/uL Hgb 14.9 (12.0-16.0) g/dL Hct 44.2 (37-47) % MCV 87.5 (80-100) fL MCH 29.5 (25-34) pg MCHC 33.7 (32-36) g/dL RDW Std Deviation 43.2 (36.4-46.3) fL RDW Coeff of Tiffany 13.6 (11.5-14.5) % Plt Count 277 (130-400) K/uL MPV 9.9 (7.4-10.4) fL Immature Gran % (Auto) 0.2 % Neut % (Auto) 70.2 % Lymph % (Auto) 18.3 % Dorado % (Auto) 7.1 % Eos % (Auto) 3.9 % Baso % (Auto) 0.3 % Immature Gran # (Auto) 0.01 (0.00-0.02) K/uL Neut # (Auto) 4.33 (1.4-6.5) K/uL Lymph # (Auto) 1.13 L (1.2-3.4) K/uL [place] # (Auto) 0.44 (0.11-0.59) K/uL Eos # (Auto) 0.24 (0-0.5) K/uL Baso # (Auto) 0.02 (0-0.2) K/uL PT INR APTT PTT Ratio Sodium 140 (136-145) mmol/L Potassium 3.7 (3.5-5.1) mmol/L Chloride 103 (98-107) mmol/L Carbon Dioxide 32 (21-32) mmol/L Anion Gap 5.0 (3-11) BUN 13 (7-18) mg/dl Creatinine 0.74 (0.6-1.2) mg/dl Est Cr Clr Drug Dosing 115.5 ml/min Est GFR ( Amer) 108.0 Est GFR (Non-Af Amer) 93.1 BUN/Creatinine Ratio 17.3 (10-20) Glucose 105 H (70-99) mg/dl Calcium 8.8 (8.5-10.1) mg/dl Magnesium 2.0 (1.8-2.4) mg/dl Total Bilirubin 0.7 (0.2-1) mg/dl AST 10 L (15-37) U/L ALT 19 (12-78) U/L Alkaline Phosphatase 35 L (45-117) U/L Troponin I < 0.015 (0-0.045) ng/ml NT-Pro-B Natriuret Pep 66 (0-900) pg/ml Total Protein 7.6 (6.4-8.2) gm/dl Albumin 3.4 (3.4-5.0) gm/dl Globulin 4.2 H (2.5-4.0) gm/dl Albumin/Globulin Ratio 0.8 L (0.9-2) Lipase 101 (73-393) U/L Influenza Type A (PCR) Neg for Influ A (Neg) Influenza Type B (PCR) Neg for Influ B (Neg) 01/28/19 01/28/19 01/28/19 Range/Units 20:43 20:43 21:43 WBC (4.8-10.8) K/uL RBC (4.2-5.4) M/uL Hgb (12.0-16.0) g/dL Hct (37-47) % MCV (80-100) fL MCH (25-34) pg MCHC (32-36) g/dL RDW Std Deviation (36.4-46.3) fL RDW Coeff of Tiffany (11.5-14.5) % Plt Count (130-400) K/uL MPV (7.4-10.4) fL Immature Gran % (Auto) % Neut % (Auto) % Lymph % (Auto) % Dorado % (Auto) % Eos % (Auto) % Baso % (Auto) % Immature Gran # (Auto) (0.00-0.02) K/uL Neut # (Auto) (1.4-6.5) K/uL Lymph # (Auto) (1.2-3.4) K/uL Dorado # (Auto) (0.11-0.59) K/uL Eos # (Auto) (0-0.5) K/uL Baso # (Auto) (0-0.2) K/uL PT Cancelled 10.9 INR Cancelled 1.1 APTT Cancelled 25.5 PTT Ratio Cancelled 0.9 Sodium (136-145) mmol/L Potassium (3.5-5.1) mmol/L Chloride (98-107) mmol/L Carbon Dioxide (21-32) mmol/L Anion Gap (3-11) BUN (7-18) mg/dl Creatinine (0.6-1.2) mg/dl Est Cr Clr Drug Dosing ml/min Est GFR ( Amer) Est GFR (Non-Af Amer) BUN/Creatinine Ratio (10-20) Glucose (70-99) mg/dl Calcium (8.5-10.1) mg/dl Magnesium (1.8-2.4) mg/dl Total Bilirubin (0.2-1) mg/dl AST (15-37) U/L ALT (12-78) U/L Alkaline Phosphatase (45-117) U/L Troponin I 0.042 (0-0.045) ng/ml NT-Pro-B Natriuret Pep (0-900) pg/ml Total Protein (6.4-8.2) gm/dl Albumin (3.4-5.0) gm/dl Globulin (2.5-4.0) gm/dl Albumin/Globulin Ratio (0.9-2) Lipase (73-393) U/L Influenza Type A (PCR) (Neg) Influenza Type B (PCR) (Neg) 01/29/19 01/29/19 Range/Units 10:11 10:11 WBC (4.8-10.8) K/uL RBC (4.2-5.4) M/uL Hgb (12.0-16.0) g/dL Hct (37-47) % MCV (80-100) fL MCH (25-34) pg MCHC (32-36) g/dL RDW Std Deviation (36.4-46.3) fL RDW Coeff of Tiffany (11.5-14.5) % Plt Count (130-400) K/uL MPV (7.4-10.4) fL Immature Gran % (Auto) % Neut % (Auto) % Lymph % (Auto) % Dorado % (Auto) % Eos % (Auto) % Baso % (Auto) % Immature Gran # (Auto) (0.00-0.02) K/uL Neut # (Auto) (1.4-6.5) K/uL Lymph # (Auto) (1.2-3.4) K/uL [place] # (Auto) (0.11-0.59) K/uL Eos # (Auto) (0-0.5) K/uL Baso # (Auto) (0-0.2) K/uL PT INR APTT PTT Ratio Sodium 141 (136-145) mmol/L Potassium 3.5 (3.5-5.1) mmol/L Chloride 108 H (98-107) mmol/L Carbon Dioxide 23 (21-32) mmol/L Anion Gap 10.0 (3-11) BUN 16 (7-18) mg/dl Creatinine 0.85 (0.6-1.2) mg/dl Est Cr Clr Drug Dosing 101.0 ml/min Est GFR ( Amer) 91.3 Est GFR (Non-Af Amer) 78.8 BUN/Creatinine Ratio 19.0 (10-20) Glucose 211 H (70-99) mg/dl Calcium 9.1 (8.5-10.1) mg/dl Magnesium 2.2 (1.8-2.4) mg/dl Total Bilirubin (0.2-1) mg/dl AST (15-37) U/L ALT (12-78) U/L Alkaline Phosphatase (45-117) U/L Troponin I < 0.015 (0-0.045) ng/ml NT-Pro-B Natriuret Pep (0-900) pg/ml Total Protein (6.4-8.2) gm/dl Albumin (3.4-5.0) gm/dl Globulin (2.5-4.0) gm/dl Albumin/Globulin Ratio (0.9-2) Lipase (73-393) U/L Influenza Type A (PCR) (Neg) Influenza Type B (PCR) (Neg) Imaging Data Radiologist's Impression: Radiology results as stated below per my review and the radiologist's interpretation: XR chest 2V routine FINDINGS: There are cholecystectomy clips. Lung volumes are mildly diminished. There is no pneumothorax. Bibasilar opacities favor atelectasis. There is no consolidation. Cardiomegaly without evidence for pulmonary edema. Appearance of the chest is unchanged. IMPRESSION: 1. No acute cardiopulmonary findings. 2. Bibasilar opacities which favor atelectasis. Electronically signed by: Robb Stanford M.D. 01/28/2019 2:02 PM ECG Data Attestation: I personally reviewed and interpreted this ECG as follows: Indication: chest pain Rate (beats per minute): 75 Rhythm: sinus rhythm Findings: + T-wave inversion (in V2-V5); no PAC and no PVC Comparison ECG Date: from (01/23/2012) Change: the following changes noted (T wave inversion is worse compared to prior.) Additional Comments: Normal axis, normal intervals. Blood Pressure Blood Pressure Findings: Elevated blood pressure Blood Pressure Disposition: further management by hospitalist [facility] Narrative Pt here well appearing however c/o persistent chest pain and sob which she feels may be worsening asthma despite outpt tx. Pt was started on antibiotics this week and hasn't felt any significant improvement after 3 days. Pt given steroids here and several duo neb tx in addition to a continuous neb. No evidence of cardiac pathology. No evidence of flu, pleural effusion, or p neumonia. Pt monitored and treated in the ER for several hours trying to improve her symptoms for close outpt f/u as she has a scheduled appt with pulmonology tomorrow. Pt continued to report no improvement, persistent chest pain, and persistent sense of being sob. No overt hypoxia. I do not suspect acs or vascular pathology. I do not suspect PE. Pt with persistent tachycardia and hypertension. Case discussed with hospitalst for additional evaluation and mgmt. I do feel pt may also have a component of underlying anxiety contributing to VS noted. Impression & Plan Asthma exacerbation, Bronchitis, Anxiety Discharge Plan Visit Data *Final* Discharge Date/Time: 01/28/19 19:25 Chief Complaint: Respiratory Problems Stated Complaint: LOW PULSE OX, COUGH, CHEST HURTS ED Provider: Jeanne Gómez Discharge Problem: Asthma exacerbation, Bronchitis, Anxiety Patient Disposition: Admitted As Inpatient Condition: Good Discharge Instructions Interventions: ED Discharge Assessment Last Done: 01/28/19 19:25 The scribe's documentation has been prepared under my direction and personally reviewed by me in its entirety. I confirm that the note above accurately reflects all work, treatment, procedures, and medical decision making performed by me.
--- NOTE | 2019-01-30 14:18 | Hospitalist Progress Note ---
Date of Service January 30, 2019 Assessment & Plan (1) Asthma exacerbation: Much improved, peak flow is improving as per pulmonology. There is no pneumonia on imaging Having significant insomnia and high blood pressure with IV steroids-insomnia improved, blood pressures improved with medication as below -Pulmonology saw the patient and agreed with diagnosis of asthma exacerbation and checked hypersensitivity pneumonitis panel-still pending -DC IV Solu-Medrol and change to prednisone 40 mg daily with taper down -Change DuoNeb's to leave albuterol for sinus tachycardia --Continue with pulmonary toilet with incentive spirometry and flutter valve. -Continue Mucinex 1200 mg twice daily. -Continue her Dulera and Singulair. -Continue fexofenadine 60 mg p.o. twice daily -We will likely be stable for discharge tomorrow (2) Chest tightness: -Likely secondary to severe bronchoconstriction from her asthma exacerbation. Now resolved Serial troponin x3- Echocardiogram without wall motion abnormalities She does have an abnormal EKG. See discussion below "abnormal ECG." (3) Acute frontal sinusitis: The patient has had several weeks of upper respiratory symptoms including significant frontal and maxillary sinus pressure and tenderness. I do believe she has sinus infection. The sinus infection may be exacerbating her asthma. Reports no headache or facial pain today and questions if maybe the pain was from high blood pressure Nonetheless, we will continue treatment with Ceftin 500 mg p.o. twice a day- today is day #3 -Continue saline spray, Nasacort, and Ellie 60 mg twice a day. The Mucinex will also help sinus symptoms. (4) Morbid obesity: BMI 39.4 The patient is actively trying to lose weight. (5) Anxiety: Continue Celexa -Declines anything else for situational anxiety at this point (6) Abnormal ECG: Patient has ST segment depressions in the anterior leads. In 2011 her EKG also showed anterior ST segment changes. However the EKG on admission shows modestly worse ST depressions in the same leads. She does have a family history of coronary artery disease. As above, troponin serially is negative and echo without wall motion abnormalities No further evaluation needed at this time (7) CYNTHIA (obstructive sleep apnea): The patient could not tolerate a standard mask for CYNTHIA. -Follow-up with sleep medicine as an outpatient (8) Essential (primary) hypertension: Blood pressures significantly elevated here likely secondary to asthma exacerbation and IV Zahf-Ydhzhu-fimdnuop somewhat today with increasing amlodipine dose yesterday -Continue amlodipine at increased dose of 10 mg daily -DC IV hydralazine as caused flushing and tachycardia -Review of outpatient record shows her PCP was considering adding on spironolactone given previous hypokalemia and hypertension and suspected Conn's syndrome-we will add spironolactone 12.5 mg p.o. once daily now -Continue to follow blood pressures -Also tapering steroids to p.o. as above (9) Psoriatic arthritis: This appears to be quiesced sent at this time. We will hold her Mobic while she is on high-dose steroids. (10) QT prolongation: Her EKG in 2012 also showed QTC prolongation. QTC here is 482 Potassium and magnesium levels are normal. The QTc prolongation may be due to her Celexa. Echocardiogram without structural abnormalities No events on telemetry No further evaluation needed at this time (11) Insomnia: -Continue Ambien 5 mg p.o. nightly as needed for insomnia-but would not give prescription upon discharge unless she becomes compliant with CPAP mask (12) DVT prophylaxis: Lovenox 40 mg daily Disposition-remain on telemetry due to patient comfort and intermittent tachycardia and hypertension, possible discharge home tomorrow Subjective Pt was feeling very flushed and had heart racing earlier after receiving hydralazine. Thinks her BP came down "too fast." he denies headache or chest pain. Feels her breathin gis better. Is also feeling "weepy" as her mother used to get admitted to this same hospital floor in the past for COPD exacerbations and then she -this is causing her bad memories. Denies anxiety. Reports she slept very well last night with Ambien. She does not feel ready to go home. Review of Systems All systems reviewed & are unremarkable except as noted in HPI & below Physical Exam Vital Signs (Past 24 Hours): Last Vital Signs Temp 36.8 C 01/30/19 11:23 Pulse 112 H 01/30/19 11:23 Resp 18 01/30/19 11:23 BP 149/98 H 01/30/19 11:23 Pulse Ox 98 01/30/19 11:23 Constitutional: WD/WN, vitals as above Eyes: PERRL, conjunctivae normal, anicteric sclerae Neck: trachea midline, no thyromegaly Respiratory: normal respiratory effort Auscultation: + crackles (At left base); no diminished lung sounds (Much improved air movement throughout) and no wheezes Cardiovascular: RRR, no murmur, no edema Gastrointestinal (Abdomen): normal bowel sounds, soft, nontender, no hepatosplenomegaly Musculoskeletal: Extremities: extremities normal to inspection; no cyanosis and no clubbing Skin: no rashes, warm and dry Neurologic: moves all extremities and awake; no focal motor deficits Psychiatric: A+Ox3, euthymic affect (1) Asthma exacerbation Asthma persistence: unspecified Asthma severity: unspecified severity Qualified Code(s): J45.901 - Unspecified asthma with (acute) exacerbation (2) Acute frontal sinusitis Recurrence: non-recurrent Qualified Code(s): J01.10 - Acute frontal sinusitis, unspecified
[2019-01-30] MEDS: MONTELUKAST SODIUM 10 MG TABLET PO SCH (19:49)
[2019-01-30] MEDS ORDERED: LEVALBUTEROL HCL 0.63 MG/3 ML NEB NEB SCH (20:00)
[2019-01-30] MEDS: ENOXAPARIN INJ 40 MG/0.4 ML SYR SQ SCH (21:48)
[2019-01-30] MEDS: ZOLPIDEM TARTRATE 5 MG TAB PO PRN (21:48)
[2019-01-30] MEDS: LEVALBUTEROL HCL 0.63 MG/3 ML NEB NEB SCH (23:19)
[2019-01-31] MEDS: LEVALBUTEROL HCL 0.63 MG/3 ML NEB NEB SCH ×2 (07:10→15:04)
[2019-01-31] MEDS: SPIRONOLACTONE 25 MG TAB PO SCH (08:58)
[2019-01-31] MEDS: FEXOFENADINE 60 MG TAB PO SCH (08:59)
[2019-01-31] MEDS: cefUROXime axetil 500 MG TAB PO SCH (08:59)
[2019-01-31] MEDS: AMLODIPINE BESYLATE 5 MG TAB PO SCH (09:00)
[2019-01-31] MEDS: CITALOPRAM 40 MG TAB PO SCH (09:00)
[2019-01-31] MEDS ORDERED: predniSONE 20 MG TAB PO SCH (09:00)
[2019-01-31] MEDS: guaiFENesin 600 MG TABCR PO SCH (09:00)
[2019-01-31] MEDS: MOMETASONE/FORMOTEROL INH SCH (09:01)
[2019-01-31] MEDS: TRIAMCINOLONE ACET NASAL SPRAY 10.8ML BTL NAE SCH (09:01)
[2019-01-31 09:05] LABS: BUN Creatinine Ratio 22.7 (10-20); Calcium 8.8 mg/dl (8.5-10.1); Creatinine Clr Calc Pharmacy 124.6 ml/min; Est GFR (Non-African American) 100.1; Potassium 3.3 mmol/L (3.5-5.1)
[2019-01-31 11:37] VITALS: BP 152/91; TEMP 97.5; O2SAT 96
[2019-01-31] MEDS ORDERED: POTASSIUM CHLORIDE 20 MEQ TABCR PO ONE (12:45)
--- NOTE | 2019-01-31 15:05 | Discharge Summary ---
Date of Service January 31, 2019 Admission HPI Per Admitting Provider 53yo female with history of asthma who presents with chest tightness, wheezing, and cough starting Tuesday evening. Cough has been dry. She was called in doxcycline by her PCP on for "sinusitis" and has been on such since that time. She had had a URI earlier in January for about 1 week, had 2-3 days where her sinuses were OK, then Tuesday of this week the sinus symptoms returned. She started using her albuterol inhaler on Tuesday night. She has had some mild to moderate dyspnea, much worse w/ activity. Some facial pain. NO fever. Because of her chest tightness and dyspnea she came to the ER for evaluation. Principal Diagnosis Acute asthma exacerbation Discharge Exam Constitutional WD/WN, vitals as above Eyes PERRL, conjunctivae normal, anicteric sclerae ENMT external ear and nose normal, oropharynx normal Neck trachea midline, no thyromegaly Respiratory normal respiratory effort Auscultation: + crackles (At left base); no diminished lung sounds (Much improved air movement throughout) and no wheezes Cardiovascular RRR, no murmur, no edema Gastrointestinal (Abdomen) normal bowel sounds, soft, nontender, no hepatosplenomegaly Musculoskeletal Extremities: extremities normal to inspection; no cyanosis and no clubbing Skin no rashes, warm and dry Neurologic moves all extremities and awake; no focal motor deficits Psychiatric A+Ox3, euthymic affect Discharge Data Allergies Allergy/AdvReac Type Severity Reaction Status Date / Time morphine AdvReac Severe GI SYMPTOMS Verified 01/28/19 20:23 Consultations Pulmonology Ordered Studies Chest x-ray Hospital Course (1) Asthma exacerbation: Much improved, peak flow is improving as per pulmonology. There is no pneumonia on imaging Having significant insomnia and high blood pressure with IV steroids-insomnia improved, blood pressures improved with medication as below Overall much improved and stable for discharge Not requiring oxygen -Pulmonology saw the patient and agreed with diagnosis of asthma exacerbation and checked hypersensitivity pneumonitis panel-still pending -Initially received Solu-Medrol and then changed to prednisone 40 mg daily with taper down by 10 mg every 2 days -Continue bronchodilators at home in the form of nebulizers or HFA --Continue with pulmonary toilet with incentive spirometry and flutter valve. -Continue Mucinex 1200 mg twice daily. -Continue her Dulera and Singulair. -Follow-up with pulmonology as an outpatient (2) Chest tightness: -Likely secondary to severe bronchoconstriction from her asthma exacerba tion. Now resolved Serial troponin x3- Echocardiogram without wall motion abnormalities She does have an abnormal EKG. See discussion below "abnormal ECG." (3) Acute frontal sinusitis: The patient has had several weeks of upper respiratory symptoms including significant frontal and maxillary sinus pressure and tenderness. I do believe she has sinus infection. The sinus infection may be exacerbating her asthma. Reports no headache or facial pain today and questions if maybe the pain was from high blood pressure Nonetheless, we will continue treatment with Ceftin 500 mg p.o. twice a day- today is day #4 of 10 -Continue saline spray, Nasacort, and was also treated with Ellie 60 mg twice a day which does not need to be continued upon discharge. The Mucinex will also help sinus symptoms. (4) Morbid obesity: BMI 39.4 The patient is actively trying to lose weight. (5) Anxiety: Continue Celexa -Declines anything else for situational anxiety at this point (6) Abnormal ECG: Patient has ST segment depressions in the anterior leads. In 2012 her EKG also showed anterior ST segment changes. However the EKG on admission shows modestly worse ST depressions in the same leads. She does have a family history of coronary artery disease. As above, troponin serially is negative and echo without wall motion abnormalities No further evaluation needed at this time (7) CYNTHIA (obstructive sleep apnea): The patient could not tolerate a standard mask for CYNTHIA. -Follow-up with sleep medicine as an outpatient (8) Essential (primary) hypertension: Blood pressures were significantly elevated here likely secondary to asthma exacerbation and IV Ekgr-Kidkbv-klcu significantly improved on the day of discharge with increasing amlodipine dose and starting spironolactone as well as with discontinuing IV Solu-Medrol -Continue amlodipine at increased dose of 10 mg daily for now and can decrease back to 5 mg daily if blood pressures decrease after prednisone taper completed -Review of outpatient record shows her PCP was considering adding on spironolactone given previous hypokalemia and hypertension and suspected Conn's syndrome-added spironolactone 12.5 mg p.o. once daily -Continue to follow blood pressures at home and with PCP -Also tapering steroids to p.o. as above which should help (9) Psoriatic arthritis: This appears to be quiesced sent at this time. We will hold her Mobic while she is on high-dose steroids. (10) QT prolongation: Her EKG in 2012 also showed QTC prolongation. QTC here is 482 Potassium and magnesium levels are normal. The QTc prolongation may be due to her Celexa. Echocardiogram without structural abnormalities No events on telemetry No further evaluation needed at this time (11) Insomnia: -Continue Ambien 5 mg p.o. nightly as needed for insomnia-but would not give prescription upon discharge unless she becomes compliant with CPAP mask (12) Hypokalemia: Potassium 3.3 on the day of discharge despite receiving a dose of spironolactone -Replaced with oral potassium -Recommend follow-up BMP within 1 week with her primary care physician (13) DVT prophylaxis: Lovenox 40 mg daily was provided Disposition-stable for discharge to home Total Time Total Time Spent Total Time Spent (In Minutes): Greater than 30 minutes Total Time Includes: Examination of the Patient, Discharge Planning and Medication Reconciliation Discharge Plan Discharge Items Patient Disposition: Home - Self-Care Reason For Visit: ASTHMA EXACERBATION Discharge Diagnosis: Acute exacerbation of asthma Condition: Good Discharge Goals: Decrease discomfort, Diagnostic testing, Learn about illness and Therapeutic intervention Activity: As commented below Lifting: Gradually increase as tolerated Bathing: No limitations Exercise/Sports: Gradually increase as tolerated Driving/Machine Use: No limitations Non-emergency contact: Primary Care Provider Call non-emergency contact if: you have any medication questions and your symptoms worsen Follow-up/Referrals: Leoncio Corbin MD [Primary Care Provider] - 02/06/19 4:15 pm (Please, follow up with Dr. Leoncio Corbin on TuesdayFebruary 06 at 4:15 pm. *If you need to change this appointment, call the office at [phone].) Hola Smith PA-C [Physician Auto Air Conditioning Mechanic] - 02/15/19 1:00 pm (Please, follow up at [facility] Pulmonology Office with Kb Smith PA-C on February 15 at 1:00 pm. *If you need to change this appointment, call the office at [phone].) Diet: Heart Healthy Addtl Provider Instructions: You were admitted with an asthma exacerbation which was treated with steroids and nebulizer treatments. Please continue the prednisone taper as prescribed. Do not take your meloxicam while you are taking the prednisone. Your blood pressure was quite elevated here which may have been in part due to the steroid treatment. Your amlodipine was increased to 10 mg daily and you were started on Spironolactone 12.5 mg once daily. If your blood pressure begins to decrease as you come off the prednisone, you can decrease her amlodipine back to 5 mg once daily. Please follow-up with your primary care physician within 1 week as scheduled for you. You should have blood work to check your potassium levels within 1 week- your primary care physician can order this for you. Prescriptions: New cefuroxime axetil 500 mg Tablet 500 mg PO BID 7 Days Qty: 14 RF: 0 spironolactone 25 mg Tablet 12.5 mg PO DAILY Qty: 15 RF: 0 sodium chloride [Saline Mist] 0.65 % Aerosol,[place] 2 sprays NA Q1H PRN (Reason: nasal congestion) Qty: 15 RF: 0 prednisone 10 mg tablet 40 mg PO DAILY Qty: 16 RF: 0 guaifenesin [Mucinex] 600 mg Tablet Extended Release 12hr 1,200 mg PO Q12 Qty: 60 RF: 0 Continued meloxicam 7.5 mg tablet 7.5 mg PO DAILY RF: 0 montelukast [Singulair] 10 mg Tablet 10 mg PO PM RF: 0 citalopram 40 mg Tablet 40 mg PO DAILY RF: 0 Dulera 100-5 mcg/actuation Hfa Aerosol Inhaler 2 puff INHALATION Q12H RF: 0 Changed amlodipine 5 mg tablet 10 mg PO DAILY Qty: 0 RF: 0 Stand-Alone Forms: [facility] Discharge Orders: Discharge Order (Routine); Ordered 01/31/19 Ordered By: Kylah Ferrell Admission Data Admit Date/Time: 01/28/19 17:51 Attending Provider: Kylah Ferrell Admit Provider: Dominic Caballero Primary Care Provider: Leoncio Corbin Other Providers: Dominic Caballero ; Renny Arellano Service: Telemetry Other Pending Studies at Discharge: Yes Studies:: Hypersensitivity pneumonitis panel
[2019-01-31 15:33] VITALS: PULSE 80
[2019-02-02 18:18] LABS: Aspergillus fumigatus NEGATIVE (NEGATIVE)
== END 2019-01-31 16:03 | disposition home or self-care (01) | DRG 202 ==
LOC: ED 09:31 → 2S 17:51 → SUATTDRO 17:51 → 2S 19:25

== ENCOUNTER 2020-03-02 01:11 | Inpatient (IN) ==
[2020-03-02] MEDS ORDERED: SODIUM CHLORIDE 0.9% 1000ML 1,000 ML IV ONE (01:49)
--- NOTE | 2020-03-02 02:00 | Emergency Department Note ---
History of Present Illness General Chief complaint: Chest Pain Stated complaint: FEVER,CHILLS,COUGH,CHEST PAIN,EXPOSURE Time Seen by Provider: 03/02/20 01:23 Source: patient Mode of arrival: ambulatory Limitations: no limitations History of Present Illness Provider complaint: fever, chest pain Onset (ago): day(s) 2 Location: chest Radiation: non-radiation Severity: moderate Pain Consistency: + constant Maximum Pain Intensity: 4 Current Pain Intensity: 4 Quality: + aching, + dull and + constant Relieved By: + none Exacerbated By: + other (cough) Associated symptoms: + cough, + fever/chills, + malaise and + shortness of breath Treatments prior to arrival: other (tylenol) This is a 54-year-old female who presents today complaining of fever, chest pain, and increased trouble breathing. Patient states her symptoms began Tuesday with abdominal pain, nausea, and loss of appetite. Patient states yesterday the abdominal pain began to improve. Today, chest pain began to worsen and pt's cough worsened, no change in sputum, and she then developed a fever. She states initial fever was 104, but then she rechecked it and it was 103. Pt took tylenol at midnight. 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 Last breathing treatment at 2129. Patient concerned as her had GI symptoms that began on Tuesday, however now he is improving. Patient states that her works construction and someone at her 's work tested positive. They do not know who. Her was tested for COVID on and they do not yet know the results. Patient states she has had a vaccine for pneumonia. She is also previously had her influenza vaccine back in the fall. Patient does see pulmonology due to her asthma. No recent leg swelling or calf pain. Pt states she feels "achy" all over. Pt seen during a time of high acuity and national emergency pandemic while wearing PPE. Home Medications Home Medications Medication Instructions Recorded Confirmed Type montelukast [Singulair] 10 mg PO QPM 01/28/19 03/02/20 History Mirena 1 device INTRAUTERINE UD 03/22/19 03/02/20 History budesonide-formoterol [Symbicort] 2 puff INHALATION BID 03/22/19 03/02/20 History fexofenadine [Ellie Allergy] 180 mg PO QAM 03/22/19 03/02/20 History spironolactone 12.5 mg PO QAM 09/26/19 03/02/20 History CPAP Machine #1 ea 10/18/19 12/27/19 Rx celecoxib 50 mg capsule 200 mg PO BID cap 11/14/19 03/02/20 History cholecalciferol (vitamin D3) 50 3,000 units PO HS tab 11/14/19 03/02/20 History mcg (2,000 unit) tablet citalopram 40 mg tablet 40 mg PO HS #90 tab 12/07/19 03/02/20 Rx amlodipine 10 mg tablet 10 mg PO QAM #90 tab 01/23/20 03/02/20 Rx Allergies Allergy/AdvReac Type Severity Reaction Status Date / Time morphine AdvReac Severe N/V Verified 03/02/20 02:38 Past Med/Surg History Medical History Abnormal ECG (Inactive) Cardiac murmur "SLIGHT" Chronic back pain Chronic hand pain (Inactive) Chronic SI joint pain (Inactive) History of anesthesia reaction (Resolved) difficulty waking at times Knee pain, left Pneumonia (Inactive) HX OF, JUL 2019 - RESOLVED Psoriatic arthritis (Inactive) QT prolongation (Chronic) PT DENIES HEART PROBLEMS Radial head fracture right - 2018, HEALED Surgical History History of arthroscopy of left shoulder (Resolved) History of tooth extraction History of wisdom tooth extraction (Resolved) Hx of cholecystectomy (Resolved) Family History Father , age 59 Diabetes Family history of diabetes mellitus Coronary heart disease first NH age 35 Heart disease CHF Myocardial infarction Mother , age 72 COPD (chronic obstructive pulmonary disease) Sister Cervical cancer Uterine cancer Other No family history of adverse response to anesthesia Social History Preferred Language: Bhutanese Communication Ability: Effective Visual Impairment: Limited Hearing Ability: Normal Humanities And Languages Professor Required: No Beliefs That Will Affect Care: None marital status: marital status details: 2 kids Current Living Situation: Family Current Living Situation Comment: AND 2 KIDS current occupational status: employed 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 and A total of 10 systems reviewed and were otherwise negative Physical Exam Vital Signs Vital Signs - 24 hr 03/02/20 01:14 03/02/20 02:00 03/02/20 03:03 Temperature 38.1 C H Temperature Source Oral Pulse Rate 104 H 85 Pulse Rate [Finger] 85 Pulse Rate from SpO2 Sensor Pulse Rhythm Regular Respiratory Rate 20 20 20 Respiratory Effort / Characteristics Non-Labored Spontaneous Non-Labored Spontaneous Non-Labored Spontaneous Respiratory Depth Normal Normal Normal Respiratory Pattern Regular Blood Pressure 159/99 H Blood Pressure [Right Arm] 159/88 H Blood Pressure Mean 119 Blood Pressure Mean [Right Arm] 111 Blood Pressure Position [Right Arm] Lying Pulse Oximetry 95 93 93 Oxygen Delivery Method Room Air Room Air Room Air Sepsis Recent Fever Within 48 Hours Yes Sepsis Action Taken by Nursing No Action Required 03/02/20 03:32 03/02/20 04:00 03/02/20 04:30 Temperature Temperature Source Pulse Rate 86 86 82 Pulse Rate [Finger] Pulse Rate from SpO2 Sensor 88 86 81 Pulse Rhythm Respiratory Rate 18 18 22 Respiratory Effort / Characteristics Respiratory Depth Respiratory Pattern Blood Pressure 161/100 H 162/102 H 161/95 H Blood Pressure [Right Arm] Blood Pressure Mean 120 123 125 Blood Pressure Mean [Right Arm] Blood Pressure Position [Right Arm] Pulse Oximetry 91 93 90 Oxygen Delivery Method Sepsis Recent Fever Within 48 Hours Sepsis Action Taken by Nursing 03/02/20 04:34 03/02/20 05:00 03/02/20 05:30 Temperature Temperature Source Pulse Rate 88 83 Pulse Rate [Finger] 82 Pulse Rate from SpO2 Sensor 88 82 Pulse Rhythm Respiratory Rate 16 24 16 Respiratory Effort / Characteristics Non-Labored Spontaneous Respiratory Depth Respiratory Pattern Blood Pressure 147/102 H 152/95 H Blood Pressure [Right Arm] Blood Pressure Mean 122 117 Blood Pressure Mean [Right Arm] Blood Pressure Position [Right Arm] Pulse Oximetry 91 89 L 96 Oxygen Delivery Method Room Air Sepsis Recent Fever Within 48 Hours Sepsis Action Taken by Nursing 03/02/20 06:00 03/02/20 06:30 Temperature Temperature Source Pulse Rate 82 79 Pulse Rate [Finger] Pulse Rate from SpO2 Sensor 81 79 Pulse Rhythm Respiratory Rate 19 21 Respiratory Effort / Characteristics Respiratory Depth Respiratory Pattern Blood Pressure 143/91 H 156/109 H Blood Pressure [Right Arm] Blood Pressure Mean 96 134 Blood Pressure Mean [Right Arm] Blood Pressure Position [Right Arm] Pulse Oximetry 97 97 Oxygen Delivery Method Sepsis Recent Fever Within 48 Hours Sepsis Action Taken by Nursing GENERAL: alert, well appearing, well nourished, no distress, non-toxic EYE EXAM: normal conjunctiva, PERRL and EOM's grossly intact OROPHARYNX: no exudate, no erythema, lips, buccal mucosa, and tongue normal and mucous membranes are moist NECK: supple, no nuchal rigidity, no adenopathy, non-tender LUNGS: Normal chest wall mechanics, no increased WOB, no tachypnea HEART: no murmurs, S1 normal and S2 normal ABDOMEN: abdomen soft, non-tender, normo-active bowel sounds, no masses, no rebound or guarding. BACK: Back is symmetrical on inspection and there is no deformity, no midline tenderness, no CVA tenderness. SKIN: no rashes and no bruising UPPER EXTREMITIES: upper extremities are grossly normal. FROM, nml pulses b/l. LOWER EXTREMITIES: No pitting edema. FROM, nml pulses b/l. NEURO EXAM: Normal sensorium, cranial nerves II-XII grossly intact, normal speech, no gross weakness of arms, no gross weakness of legs. Gross sensation intact. Course Course 0411: Updated pt on results. Pt states still having chest pressure and dry cough. 0515: Pt noted to drop her oxygen to 87% while asleep. Nursing did report pt mentioned to them she is supposed to wear CPAP at night but she doesn't. As soon as the patient wakes up, her oxygen improves. 0538: Updated pt on additional labs. Pt states she hasn't slept here at all. Discussed additional bio fire results. Also discussed EKG changes. Patient states the chest pain is slightly improved however she still feels achy. Patient states he no longer feels fevered. 0608: Case discussed with Dr. Srinivasan. 0611: Updated patient on discussion with Dr. Srinivasan. Administered Medications Acetaminophen (Tylenol) 650 mg PO Q4H PRN PRN Reason: pain/fever Stop: 04/01/20 08:26 Last Admin: 03/02/20 21:39 Dose: 650 mg Documented by: [id number] Admin: 03/02/20 12:57 Dose: 650 mg Documented by: [id number] Citalopram Hydrobromide (Celexa) 40 mg PO HS@1999 LETTY Stop: 04/01/20 19:59 Last Admin: 03/02/20 19:37 Dose: 40 mg Documented by: [id number] Enoxaparin Sodium (Lovenox) 40 mg SQ Q24H LETTY Stop: 04/01/20 19:59 Last Admin: 03/02/20 21:36 Dose: 40 mg Documented by: [id number] Hydrocodone Bit/Homatropine Methylb (Hycodan) 5 ml PO Q4H PRN PRN Reason: Cough Stop: 03/16/20 14:58 Last Admin: 03/02/20 15:09 Dose: 5 ml Documented by: [id number] Montelukast Sodium (Singulair) 10 mg PO QPM@1999 LETTY Stop: 04/01/20 19:59 Last Admin: 03/02/20 19:37 Dose: 10 mg Documented by: [id number] Discontinued Medications Albuterol (Duoneb) 3 ml NEB NOW STA Stop: 03/02/20 04:11 Last Admin: 03/02/20 04:32 Dose: 3 ml Documented by: [id number] Amlodipine Besylate (Norvasc) 10 mg PO QAM LETTY Stop: 03/02/20 23:59 Last Admin: 03/02/20 09:30 Dose: 10 mg Documented by: [id number] Aspirin (Ecotrin Ectab) 81 mg PO DAILY LETTY Stop: 04/01/20 08:59 Last Admin: 03/02/20 09:30 Dose: 81 mg Documented by: [id number] Famotidine (Pepcid 20mg Iv Push) 20 mg IV ONE STA Stop: 03/02/20 04:16 Last Admin: 03/02/20 04:45 Dose: 20 mg Documented by: [id number] Fexofenadine HCl (Ellie) 180 mg PO QAM LETTY Stop: 04/01/20 08:59 Last Admin: 03/02/20 09:30 Dose: 180 mg Documented by: [id number] Sodium Chloride (Nss 1000ml) 1,000 mls @ 999 mls/hr IV .[id number] ONE Stop: 03/02/20 02:49 Last Infusion: 03/02/20 03:05 Dose: 0 mls/hr Documented by: [id number] Admin: 03/02/20 02:00 Dose: 999 mls/hr Documented by: [id number] Acetaminophen (Ofirmev) 1,000 mg in 100 mls @ 400 mls/hr IV NOW STA Stop: 03/02/20 03:46 Last Infusion: 03/02/20 04:34 Dose: 0 mls/hr Documented by: [id number] Admin: 03/02/20 04:15 Dose: 400 mls/hr Documented by: [id number] Sodium Chloride (Nss 1000ml) 1,000 mls @ 80 mls/hr IV .[id number] LETTY Stop: 03/02/20 21:29 Last Infusion: 03/02/20 21:48 Dose: 0 mls/hr Documented by: [id number] Admin: 03/02/20 09:30 Dose: 80 mls/hr Documented by: [id number] Ketorolac Tromethamine (Toradol) 10 mg IV NOW ONE Stop: 03/02/20 04:16 Last Admin: 03/02/20 04:45 Dose: 10 mg Documented by: [id number] Lorazepam (Ativan) 0.25 mg PO NOW STA Stop: 03/02/20 21:48 Last Admin: 03/02/20 21:56 Dose: 0.25 mg Documented by: [id number] Ondansetron HCl (Zofran) 4 mg IV NOW STA Stop: 03/02/20 22:30 Last Admin: 03/02/20 22:37 Dose: 4 mg Documented by: [id number] Spironolactone (Aldactone) 12.5 mg PO QAM LETTY Stop: 04/01/20 08:59 Last Admin: 03/02/20 09:30 Dose: 12.5 mg Documented by: [id number] Medical Decision Making Differential Diagnosis Differential diagnoses includes but is not limited to acute coronary syndrome, myocardial infarction, pericarditis, pulmonary embolus, aortic dissection, pneumonia, pneumothorax, musculoskeletal, shingles, esophageal, viral syndrome, otitis, pharyngitis, pneumonia, influenza, meningitis, urinary tract infection, sepsis, bacteremia, as well as others were entertained. Medical Records Attestation: I reviewed the patient's medical records. Home Medications Current Medication List: was personally reviewed by me Laboratory Data Attestation: I reviewed the patient's lab results. Result diagrams: 03/02/20 02:40 03/02/20 02:40 Lab Results 03/02/20 03/02/20 03/02/20 Range/Units 02:40 02:40 02:40 WBC 6.59 (4.8-10.8) K/uL RBC 4.75 (4.2-5.4) M/uL Hgb 13.8 (12.0-16.0) g/dL Hct 41.2 (37-47) % MCV 86.7 (80-100) fL MCH 29.1 (25-34) pg MCHC 33.5 (32-36) g/dL RDW Std Deviation 43.4 (36.4-46.3) fL RDW Coeff of Tiffany 13.7 (11.5-14.5) % Plt Count 255 (130-400) K/uL MPV 9.9 (7.4-10.4) fL Immature Gran % (Auto) 0.2 % Neut % (Auto) 77.2 % Lymph % (Auto) 16.5 % Riley % (Auto) 4.2 % Eos % (Auto) 1.7 % Baso % (Auto) 0.2 % Immature Gran # (Auto) 0.01 (0.00-0.02) K/uL Neut # (Auto) 5.09 (1.4-6.5) K/uL Lymph # (Auto) 1.09 L (1.2-3.4) K/uL Riley # (Auto) 0.28 (0.11-0.59) K/uL Eos # (Auto) 0.11 (0-0.5) K/uL Baso # (Auto) 0.01 (0-0.2) K/uL PT 11.3 (9.0-12.0) Seconds INR 1.1 (0.9-1.1) APTT 29.4 (21.0-31.0) Seconds PTT Ratio 1.1 D-Dimer (0-500) ug/L FEU Sodium 138 (136-145) mmol/L Potassium 3.5 (3.5-5.1) mmol/L Chloride 106 (98-107) mmol/L Carbon Dioxide 26 (21-32) mmol/L Anion Gap 6.0 (3-11) BUN 12 (7-18) mg/dl Creatinine 0.85 (0.6-1.2) mg/dl Est Cr Clr Drug Dosing 105.5 ml/min Est GFR ( Amer) 90.7 Est GFR (Non-Af Amer) 78.2 BUN/Creatinine Ratio 13.8 (10-20) Glucose 127 H (70-99) mg/dl Lactate (0.4-2.0) mmol/L Calcium 8.6 (8.5-10.1) mg/dl Magnesium 1.9 (1.8-2.4) mg/dl Total Bilirubin 0.5 (0.2-1) mg/dl AST 18 (15-37) U/L ALT 30 (12-78) U/L Alkaline Phosphatase 34 L (45-117) U/L Lactate Dehydrogenase (84-246) U/L Troponin I < 0.015 (0-0.045) ng/ml Total Protein 7.0 (6.4-8.2) gm/dl Albumin 3.3 L (3.4-5.0) gm/dl Globulin 3.7 (2.5-4.0) gm/dl Albumin/Globulin Ratio 0.9 (0.9-2) Procalcitonin (0-0.5) ng/ml Urine Color Urine Appearance (Clear) Urine pH (4.5-7.5) Ur Specific Elba (1.000-1.030) Urine Protein (Negative) Urine Glucose (UA) (Negative) Urine Ketones (Negative) Urine Blood (Negative) Urine Nitrite (Negative) Urine Bilirubin (Negative) Urine Urobilinogen (Negative) Ur Leukocyte Esterase (Negative) Adenovirus (PCR) (NotDetected) B. pertussis DNA (PCR) (NotDetected) B.parapertussis DNA PCR (NotDetected) C. pneumoniae DNA (PCR) (NotDetected) Coronavirus OC43 (PCR) (NotDetected) Coronavirus HKU1 (PCR) (NotDetected) Coronavirus 229E (PCR) (NotDetected) COVID-19 PCR (Negative) Coronavirus NL63 (PCR) (NotDetected) Human Metapneumovir PCR (NotDetected) Influenza Type A (PCR) (Neg) Influenza Type B (PCR) (Neg) M. pneumoniae (PCR) (NotDetected) Parainfluenza 1 (PCR) (NotDetected) Parainfluenza 2 (PCR) (NotDetected) Parainfluenza 3 (PCR) (NotDetected) Parainfluenza 4 (PCR) (NotDetected) RSV (PCR) (NotDetected) Entero/Rhino (PCR) (NotDetected) SARS-CoV-2 RNA (RT-PCR) 03/02/20 03/02/20 03/02/20 Range/Units 02:40 02:40 02:40 WBC (4.8-10.8) K/uL RBC (4.2-5.4) M/uL Hgb (12.0-16.0) g/dL Hct (37-47) % MCV (80-100) fL MCH (25-34) pg MCHC (32-36) g/dL RDW Std Deviation (36.4-46.3) fL RDW Coeff of Tiffany (11.5-14.5) % Plt Count (130-400) K/uL MPV (7.4-10.4) fL Immature Gran % (Auto) % Neut % (Auto) % Lymph % (Auto) % Riley % (Auto) % Eos % (Auto) % Baso % (Auto) % Immature Gran # (Auto) (0.00-0.02) K/uL Neut # (Auto) (1.4-6.5) K/uL Lymph # (Auto) (1.2-3.4) K/uL Riley # (Auto) (0.11-0.59) K/uL Eos # (Auto) (0-0.5) K/uL Baso # (Auto) (0-0.2) K/uL PT (9.0-12.0) Seconds INR (0.9-1.1) APTT (21.0-31.0) Seconds PTT Ratio D-Dimer (0-500) ug/L FEU Sodium (136-145) mmol/L Potassium (3.5-5.1) mmol/L Chloride (98-107) mmol/L Carbon Dioxide (21-32) mmol/L Anion Gap (3-11) BUN (7-18) mg/dl Creatinine (0.6-1.2) mg/dl Est Cr Clr Drug Dosing ml/min Est GFR ( Amer) Est GFR (Non-Af Amer) BUN/Creatinine Ratio (10-20) Glucose (70-99) mg/dl Lactate 1.9 (0.4-2.0) mmol/L Calcium (8.5-10.1) mg/dl Magnesium (1.8-2.4) mg/dl Total Bilirubin (0.2-1) mg/dl AST (15-37) U/L ALT (12-78) U/L Alkaline Phosphatase (45-117) U/L Lactate Dehydrogenase 226 (84-246) U/L Troponin I (0-0.045) ng/ml Total Protein (6.4-8.2) gm/dl Albumin (3.4-5.0) gm/dl Globulin (2.5-4.0) gm/dl Albumin/Globulin Ratio (0.9-2) Procalcitonin < 0.05 (0-0.5) ng/ml Urine Color Urine Appearance (Clear) Urine pH (4.5-7.5) Ur Specific Elba (1.000-1.030) Urine Protein (Negative) Urine Glucose (UA) (Negative) Urine Ketones (Negative) Urine Blood (Negative) Urine Nitrite (Negative) Urine Bilirubin (Negative) Urine Urobilinogen (Negative) Ur Leukocyte Esterase (Negative) Adenovirus (PCR) (NotDetected) B. pertussis DNA (PCR) (NotDetected) B.parapertussis DNA PCR (NotDetected) C. pneumoniae DNA (PCR) (NotDetected) Coronavirus OC43 (PCR) (NotDetected) Coronavirus HKU1 (PCR) (NotDetected) Coronavirus 229E (PCR) (NotDetected) COVID-19 PCR (Negative) Coronavirus NL63 (PCR) (NotDetected) Human Metapneumovir PCR (NotDetected) Influenza Type A (PCR) (Neg) Influenza Type B (PCR) (Neg) M. pneumoniae (PCR) (NotDetected) Parainfluenza 1 (PCR) (NotDetected) Parainfluenza 2 (PCR) (NotDetected) Parainfluenza 3 (PCR) (NotDetected) Parainfluenza 4 (PCR) (NotDetected) RSV (PCR) (NotDetected) Entero/Rhino (PCR) (NotDetected) SARS-CoV-2 RNA (RT-PCR) 03/02/20 03/02/20 03/02/20 Range/Units 02:40 02:40 02:40 WBC (4.8-10.8) K/uL RBC (4.2-5.4) M/uL Hgb (12.0-16.0) g/dL Hct (37-47) % MCV (80-100) fL MCH (25-34) pg MCHC (32-36) g/dL RDW Std Deviation (36.4-46.3) fL RDW Coeff of Tiffany (11.5-14.5) % Plt Count (130-400) K/uL MPV (7.4-10.4) fL Immature Gran % (Auto) % Neut % (Auto) % Lymph % (Auto) % Riley % (Auto) % Eos % (Auto) % Baso % (Auto) % Immature Gran # (Auto) (0.00-0.02) K/uL Neut # (Auto) (1.4-6.5) K/uL Lymph # (Auto) (1.2-3.4) K/uL Riley # (Auto) (0.11-0.59) K/uL Eos # (Auto) (0-0.5) K/uL Baso # (Auto) (0-0.2) K/uL PT (9.0-12.0) Seconds INR (0.9-1.1) APTT (21.0-31.0) Seconds PTT Ratio D-Dimer (0-500) ug/L FEU Sodium (136-145) mmol/L Potassium (3.5-5.1) mmol/L Chloride (98-107) mmol/L Carbon Dioxide (21-32) mmol/L Anion Gap (3-11) BUN (7-18) mg/dl Creatinine (0.6-1.2) mg/dl Est Cr Clr Drug Dosing ml/min Est GFR ( Amer) Est GFR (Non-Af Amer) BUN/Creatinine Ratio (10-20) Glucose (70-99) mg/dl Lactate (0.4-2.0) mmol/L Calcium (8.5-10.1) mg/dl Magnesium (1.8-2.4) mg/dl Total Bilirubin (0.2-1) mg/dl AST (15-37) U/L ALT (12-78) U/L Alkaline Phosphatase (45-117) U/L Lactate Dehydrogenase (84-246) U/L Troponin I (0-0.045) ng/ml Total Protein (6.4-8.2) gm/dl Albumin (3.4-5.0) gm/dl Globulin (2.5-4.0) gm/dl Albumin/Globulin Ratio (0.9-2) Procalcitonin (0-0.5) ng/ml Urine Color Yellow Urine Appearance Clear (Clear) Urine pH 6.0 (4.5-7.5) Ur Specific Elba 1.016 (1.000-1.030) Urine Protein Negative (Negative) Urine Glucose (UA) Negative (Negative) Urine Ketones Negative (Negative) Urine Blood Negative (Negative) Urine Nitrite Negative (Negative) Urine Bilirubin Negative (Negative) Urine Urobilinogen Negative (Negative) Ur Leukocyte Esterase Negative (Negative) Adenovirus (PCR) Not Detected (NotDetected) B. pertussis DNA (PCR) Not Detected (NotDetected) B.parapertussis DNA PCR Not Detected (NotDetected) C. pneumoniae DNA (PCR) Not Detected (NotDetected) Coronavirus OC43 (PCR) Not Detected (NotDetected) Coronavirus HKU1 (PCR) Not Detected (NotDetected) Coronavirus 229E (PCR) Not Detected (NotDetected) COVID-19 PCR (Negative) Coronavirus NL63 (PCR) Not Detected (NotDetected) Human Metapneumovir PCR Not Detected (NotDetected) Influenza Type A (PCR) Neg for Influ A Not Detected (Neg) Influenza Type B (PCR) Neg for Influ B Not Detected (Neg) M. pneumoniae (PCR) Not Detected (NotDetected) Parainfluenza 1 (PCR) Not Detected (NotDetected) Parainfluenza 2 (PCR) Not Detected (NotDetected) Parainfluenza 3 (PCR) Not Detected (NotDetected) Parainfluenza 4 (PCR) Not Detected (NotDetected) RSV (PCR) Not Detected (NotDetected) Entero/Rhino (PCR) Not Detected (NotDetected) SARS-CoV-2 RNA (RT-PCR) 03/02/20 03/02/20 03/02/20 Range/Units 02:40 02:40 02:40 WBC (4.8-10.8) K/uL RBC (4.2-5.4) M/uL Hgb (12.0-16.0) g/dL Hct (37-47) % MCV (80-100) fL MCH (25-34) pg MCHC (32-36) g/dL RDW Std Deviation (36.4-46.3) fL RDW Coeff of Tiffany (11.5-14.5) % Plt Count (130-400) K/uL MPV (7.4-10.4) fL Immature Gran % (Auto) % Neut % (Auto) % Lymph % (Auto) % Riley % (Auto) % Eos % (Auto) % Baso % (Auto) % Immature Gran # (Auto) (0.00-0.02) K/uL Neut # (Auto) (1.4-6.5) K/uL Lymph # (Auto) (1.2-3.4) K/uL Riley # (Auto) (0.11-0.59) K/uL Eos # (Auto) (0-0.5) K/uL Baso # (Auto) (0-0.2) K/uL PT (9.0-12.0) Seconds INR (0.9-1.1) APTT (21.0-31.0) Seconds PTT Ratio D-Dimer 330 (0-500) ug/L FEU Sodium (136-145) mmol/L Potassium (3.5-5.1) mmol/L Chloride (98-107) mmol/L Carbon Dioxide (21-32) mmol/L Anion Gap (3-11) BUN (7-18) mg/dl Creatinine (0.6-1.2) mg/dl Est Cr Clr Drug Dosing ml/min Est GFR ( Amer) Est GFR (Non-Af Amer) BUN/Creatinine Ratio (10-20) Glucose (70-99) mg/dl Lactate (0.4-2.0) mmol/L Calcium (8.5-10.1) mg/dl Magnesium (1.8-2.4) mg/dl Total Bilirubin (0.2-1) mg/dl AST (15-37) U/L ALT (12-78) U/L Alkaline Phosphatase (45-117) U/L Lactate Dehydrogenase (84-246) U/L Troponin I (0-0.045) ng/ml Total Protein (6.4-8.2) gm/dl Albumin (3.4-5.0) gm/dl Globulin (2.5-4.0) gm/dl Albumin/Globulin Ratio (0.9-2) Procalcitonin (0-0.5) ng/ml Urine Color Urine Appearance (Clear) Urine pH (4.5-7.5) Ur Specific Elba (1.000-1.030) Urine Protein (Negative) Urine Glucose (UA) (Negative) Urine Ketones (Negative) Urine Blood (Negative) Urine Nitrite (Negative) Urine Bilirubin (Negative) Urine Urobilinogen (Negative) Ur Leukocyte Esterase (Negative) Adenovirus (PCR) (NotDetected) B. pertussis DNA (PCR) (NotDetected) B.parapertussis DNA PCR (NotDetected) C. pneumoniae DNA (PCR) (NotDetected) Coronavirus OC43 (PCR) (NotDetected) Coronavirus HKU1 (PCR) (NotDetected) Coronavirus 229E (PCR) (NotDetected) COVID-19 PCR POSITIVE A* (Negative) Coronavirus NL63 (PCR) (NotDetected) Human Metapneumovir PCR (NotDetected) Influenza Type A (PCR) (Neg) Influenza Type B (PCR) (Neg) M. pneumoniae (PCR) (NotDetected) Parainfluenza 1 (PCR) (NotDetected) Parainfluenza 2 (PCR) (NotDetected) Parainfluenza 3 (PCR) (NotDetected) Parainfluenza 4 (PCR) (NotDetected) RSV (PCR) (NotDetected) Entero/Rhino (PCR) (NotDetected) SARS-CoV-2 RNA (RT-PCR) Cancelled Imaging Data Attestation: I personally reviewed and interpreted this imaging study as follows: My Impression: X-ray: I interpreted the following studies. Chest: A single view study of the chest was reviewed and was negative for cardiomegaly, focal infiltrate, effusion, pulmonary edema, or wide mediastinum. No acute change compared to prior. ECG Data Attestation: I personally reviewed and interpreted this ECG as follows: Indication: + chest pain Rate (beats per minute): 93 Rhythm: + normal sinus ECG Intervals/blocks: + Normal QRS and + Normal QT ECG ST segments: + T-wave inversions (V2-5) Comparison ECG Date: from (09/17/2019) Change: the following changes noted (T wave inversions are new compared to prior) Blood Pressure Blood Pressure Findings: Elevated blood pressure Blood Pressure Disposition: further management by hospitalist JULIÁN Narrative An order was placed for continuous cardiac monitoring. The monitor shows a rate of 88 with normal sinus rhythm. Patient here well-appearing despite complaints. Patient with symptoms gan ggestive of viral etiology versus possible pneumonia. Patient is an asthmatic and was concerned about bronchitis versus pneumonia, as well as a remote possibility of exposure from her to possible coronavirus. She states patient has been only had symptoms for 3 to 4 days however there was an unknown positive person at his place of employment. His coronavirus outpatient test is still pending. Patient concerned given fever tonight and sensitive chest pain/pressure. Patient had no hypoxia, tachypnea, or dyspnea on exam. Patient's labs and imaging reassuring. Due to potential exposure and risk, a bio fire was ordered in addition and was also negative. COVID-19 tests initially sent as likely send out, however due to the persistence of patient's pain despite medication, and new T wave inversions noted on EKG, I discussed with the patient additional evaluation as an inpatient. Patient's troponin negative. D-dimer added later and was also negative. Other secondary markers for coronavirus were within normal limits also. Case discussed with hospitalist for additional cardiac evaluation. Patient was not started on steroids or antibiotics for a likely bronchitis/asthma exacerbation. Antibiotics avoided due to lack of other findings for bacterial process although I did discuss this with the hospitalist and they would like to see and evaluate in addition. Steroids also avoided at this time due to unknown etiology and patient's concern for risk associated with coronavirus given that that test is still pending at this time. Patient remained hemodynamically stable in the emergency room, did not require any additional oxygen supplementation, although did on occasion become hypoxic to 86%. Patient does have a history of sleep apnea, and has not been wearing her CPAP at night. Patient would briefly become hypoxic, however then oxygen saturations would return to normal without any additional intervention. I talked to the patient on multiple occasions and made her aware of all results as well as ongoing concerns. Patient was in agreement with plan. Impression & Plan Atypical chest pain, Fever, Abnormal ECG, Hypoxia, Asthma exacerbation, Hypertension Discharge Plan Visit Data *Final* Discharge Date/Time: 03/02/20 07:58 Chief Complaint: Chest Pain Stated Complaint: FEVER,CHILLS,COUGH,CHEST PAIN,EXPOSURE ED Provider: Jeanne Gómez Discharge Problem: Atypical chest pain, Fever, Abnormal ECG, Hypoxia, Asthma exacerbation, Hypertension Patient Disposition: Admitted As Inpatient Condition: Good Discharge Instructions Interventions: ED Discharge Assessment Last Done: 03/02/20 07:58
[2020-03-02 03:03] LABS: Basophils # (auto) 0.01 K/uL (0-0.2); Basophils % (auto) 0.2 %; Eosinophils # (auto) 0.11 K/uL (0-0.5); Eosinophils % (auto) 1.7 %; Hematocrit (blood only) 41.2 % (37-47); Hemoglobin 13.8 g/dL (12.0-16.0); Immature Granulocytes # (auto) 0.01 K/uL (0.00-0.02); Immature Granulocytes % (auto) 0.2 %; Lymphocytes # (auto) 1.09 K/uL (1.2-3.4); Lymphocytes % (auto) 16.5 %; Mean Corpuscular Hemoglobin 29.1 pg (25-34); Mean Corpuscular Hgb Conc 33.5 g/dL (32-36); Mean Corpuscular Volume 86.7 fL (80-100); Mean Platelet Volume 9.9 fL (7.4-10.4); Monocytes # (auto) 0.28 K/uL (0.11-0.59); Monocytes % (auto) 4.2 %; Neutrophils # (auto) 5.09 K/uL (1.4-6.5); Neutrophils % (auto) 77.2 %; Platelet Count 255 K/uL (130-400); RDW Coefficient of Variation 13.7 % (11.5-14.5); RDW Standard Deviation 43.4 fL (36.4-46.3); Red Blood Count 4.75 M/uL (4.2-5.4); White Blood Count 6.59 K/uL (4.8-10.8)
[2020-03-02 03:14] LABS: Appearance Urine Clear (Clear); Bilirubin Urine Negative (Negative); Blood Urine Negative (Negative); Color Urine Yellow; Glucose Urine UA Negative (Negative); Ketones Urine Negative (Negative); Leukocyte Esterase Urine Negative (Negative); Nitrite Urine Negative (Negative); Protein Urine Negative (Negative); Specific Gravity Urine 1.016 (1.000-1.030); Urobilinogen Urine Negative (Negative)
[2020-03-02 03:18] LABS: INR 1.1 (0.9-1.1); Partial Thromboplastin Ratio 1.1; Partial Thromboplastin Time 29.4 Seconds (21.0-31.0); Prothrombin Time 11.3 Seconds (9.0-12.0)
[2020-03-02 03:20] LABS: Alanine Aminotransferase 30 U/L (12-78); Albumin Level 3.3 gm/dl (3.4-5.0); Aspartate Aminotransferase 18 U/L (15-37); BUN Creatinine Ratio 13.8 (10-20); Blood Urea Nitrogen 12 mg/dl (7-18); Calcium 8.6 mg/dl (8.5-10.1); Carbon Dioxide 26 mmol/L (21-32); Chloride 106 mmol/L (98-107); Creatinine Clr Calc Pharmacy 105.5 ml/min; Est GFR (African American) 90.7; Est GFR (Non-African American) 78.2; Glucose 127 mg/dl (70-99); Magnesium 1.9 mg/dl (1.8-2.4); Potassium 3.5 mmol/L (3.5-5.1); Sodium 138 mmol/L (136-145)
[2020-03-02 03:25] LABS: Albumin Globulin Ratio 0.9 (0.9-2); Alkaline Phosphatase 34 U/L (45-117); Bilirubin,Total 0.5 mg/dl (0.2-1); Globulin 3.7 gm/dl (2.5-4.0); Troponin I < 0.015 ng/ml (0-0.045)
[2020-03-02] MEDS ORDERED: ACETAMINOPHEN 1,000 MG/100 ML VIAL IV STA (03:32)
[2020-03-02 03:49] LABS: Influenza A virus by PCR Neg for Influ A (Neg); Influenza B virus by PCR Neg for Influ B (Neg)
[2020-03-02] MEDS ORDERED: ALBUT/IPRATROP 3MG/0.5MG NEB 3 ML VIAL NEB STA (04:10)
[2020-03-02] MEDS ORDERED: FAMOTIDINE 20MG/5ML IV PUSH IV STA (04:15)
[2020-03-02] MEDS ORDERED: KETOROLAC TROMETHAMINE 15 MG/ML VIAL IV ONE (04:15)
[2020-03-02 04:16] LABS: Adenovirus PCR Not Detected (NotDetected); Bordetella parapertussis PCR Not Detected (NotDetected); Bordetella pertussis PCR Not Detected (NotDetected); Chlamydia pneumoniae PCR Not Detected (NotDetected); Coronavirus 229E PCR Not Detected (NotDetected); Coronavirus HKU1 PCR Not Detected (NotDetected); Coronavirus NL63 PCR Not Detected (NotDetected); Coronavirus OC43PCR Not Detected (NotDetected); Human Metapneumovirus PCR Not Detected (NotDetected); Influenza A PCR Not Detected (NotDetected); Influenza B PCR Not Detected (NotDetected); Mycoplasma pneumoniae PCR Not Detected (NotDetected); Parainfluenza Virus 1 PCR Not Detected (NotDetected); Parainfluenza Virus 2 PCR Not Detected (NotDetected); Parainfluenza Virus 3 PCR Not Detected (NotDetected); Parainfluenza Virus 4 PCR Not Detected (NotDetected); Respiratory Syncytial VirusPCR Not Detected (NotDetected); Rhinovirus/Enterovirus PCR Not Detected (NotDetected)
--- NOTE | 2020-03-02 06:00 | XRay Report ---
XR chest 1V portable CLINICAL HISTORY: SEPSIS dyspnea COMPARISON STUDY: 09/17/2019 FINDINGS: Mild stable cardiomegaly. Slight bibasilar interstitial prominence considered chronic. Mini mal lungs are clear. IMPRESSION: Mild cardiomegaly. Chronic basilar interstitial change. ACT 112: Negative or not required by law. The above report was generated using voice recognition software. It may contain grammatical, syntax or spelling errors. Electronically signed by: Charlie Dominguez M.D. 03/02/2020 5:59 AM
[2020-03-02 06:15] LABS: D Dimer 330 ug/L FEU (0-500)
--- NOTE | 2020-03-02 06:42 | History & Physical Report ---
Date of Service March 02, 2020 Assessment & Plan (1) Fever: Etiology unclear at this time. No obvious PNA on CXR, UA does not suggest infection. Biofire negative. Possibly secondary to bronchitis. Some concern for Covid-19 as patient with GI symptoms as well as worsening SOB, dry cough. Her had similar GI symptoms which have resolved. Her was possibly exposed to coronavirus and his test is still pendin. -Admit to medical floor with telemetry monitoring -Maintain contact and airborne precautions -SARS-CoV2 testing -Follow cultures -Tylenol as needed. Will avoid Ibuprofen and NSAIDS until Covid testing resulted Present on Admission?: Yes (2) Atypical chest pain: Patient with chest pressure. EKG with TWI present in anterior leads. Troponin x 1 negative -Telemetry monitoring -Trend troponin -ASA 81mg po daily Present on Admission?: Yes (3) Asthma: Patient with moderate persistent asthma -Albuterol HFA. Avoid nebs until Covid testing resulted -Continue Singulair and Fexofenadine -Will hold Symbicort for now Present on Admission?: Yes (4) Essential (primary) hypertension: Blood pressure stable at present -Continue Amlodipine -Continue Spironolactone -Continue to monitor Present on Admission?: Yes (5) Depression with anxiety: Chronic. Stable -Continue Citalopram 40mg po qHS F/E/N - NSS at 80mL/hr, electrolytes WNL, Heart healthy diet as tolerated Ppx - Low risk for DVT Code - Full Dispo - Admit to medical floor with telemetry monitoring, Contact/Airborne precautions as we await results of Covid testing Present on Admission?: Yes Admission and Anticipated Discharge Date Admission Date: 03/02/20 Anticipated date of discharge: 03/03/20 History of Present Illness Chief Complaint: SOB, fever Primary Care Provider: Leoncio Corbin MD 54yo C female with HTN, HLP and Asthma. Tuesday evening she developed abdominal discomfort and nausea then developed some shortness of breath and chest tightness followed by a fever to 104. Dry cough. Patient's had similar symptoms of nausea/vomiting and abdominal pain. He has a co-worker that recently tested positive for SARS-CoV2 virus. [facility] and is waiting on his results. His symptoms are nearly resolved at this time. No additional complaints. No dysuria, abdominal pain, nausea, vomiting ER Course: Acetaminophen, Albuterol, Famotidine, Toradol, NSS Allergies Allergy/AdvReac Type Severity Reaction Status Date / Time morphine AdvReac Severe N/V Verified 03/02/20 02:38 Home Medications Home Medications Medication Instructions Recorded Confirmed Type montelukast [Singulair] 10 mg PO QPM 01/28/19 03/02/20 History Mirena 1 device INTRAUTERINE UD 03/22/19 03/02/20 History budesonide-formoterol [Symbicort] 2 puff INHALATION BID 03/22/19 03/02/20 History fexofenadine [Ellie Allergy] 180 mg PO QAM 03/22/19 03/02/20 History spironolactone 12.5 mg PO QAM 09/26/19 03/02/20 History CPAP Machine #1 ea 10/18/19 12/27/19 Rx celecoxib 50 mg capsule 200 mg PO BID cap 11/14/19 03/02/20 History cholecalciferol (vitamin D3) 50 3,000 units PO HS tab 11/14/19 03/02/20 History mcg (2,000 unit) tablet citalopram 40 mg tablet 40 mg PO HS #90 tab 12/07/19 03/02/20 Rx amlodipine 10 mg tablet 10 mg PO QAM #90 tab 01/23/20 03/02/20 Rx Past Med/Surg History Medical History Abnormal ECG (Inactive) Cardiac murmur "SLIGHT" Chronic back pain Chronic hand pain (Inactive) Chronic SI joint pain (Inactive) History of anesthesia reaction (Resolved) difficulty waking at times Knee pain, left Pneumonia (Inactive) HX OF, JUL 2019 - RESOLVED Psoriatic arthritis (Inactive) QT prolongation (Chronic) PT DENIES HEART PROBLEMS Radial head fracture right - 2018, HEALED Surgical History History of arthroscopy of left shoulder (Resolved) History of tooth extraction History of wisdom tooth extraction (Resolved) Hx of cholecystectomy (Resolved) Family History Father , age 59 Diabetes Family history of diabetes mellitus Coronary heart disease first [place] age 35 Heart disease CHF Myocardial infarction Mother , age 72 COPD (chronic obstructive pulmonary disease) Sister Cervical cancer Uterine cancer Other No family history of adverse response to anesthesia Social History Preferred Language: Slovenian Communication Ability: Effective Visual Impairment: Limited Hearing Ability: Normal 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 Beliefs That Will Affect Care: None marital status: marital status details: 2 kids Current Living Situation: Family Current Living Situation Comment: AND 2 KIDS current occupational status: employed 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 Feels Safe at Home: Yes Smoking Status: Never smoker Second Hand Exposure: Yes (PARENTS SMOKED) ; Hx Alcohol Use: Yes Alcohol type: beer, wine and hard liquor Alcohol Intake Frequency Comment: 1x/week Hx Substance Use: No Childhood Exposure to Second-Hand Smoke: Yes Dental Care, Regularly: No Physical Activity Frequency: Does not Exercise Seatbelt Use: always Sunscreen Use: Yes Review of Systems Review of Systems: All systems reviewed & are unremarkable except as noted in HPI & below Physical Exam Physical Exam: General: patient resting comfortably, NAD, non-toxic in appearance, AA&O x 4, cloth facemask in place Skin: warm, dry, intact, no rashes or lesions HEENT: NC/AT, PERRL, EOMI, anicteric sclera, conjunctiva without injection, external ear normal to inspection and nontender, nares patent, moist mucus membranes, dentition intact, no oropharyngeal lesions, neck supple, trachea midline, no LAD, no thyromegaly, no JVD Heart: +S1/S2, regular, no m/r/g Lungs: equal air entry bilaterally, +crackles on left base, no rhonchi/wheezes Abd: +BS, soft, NT/ND, no masses/organomegaly/ascites Ext: warm, 2+ pulses in UE/LE bilaterally, no clubbing/cyanosis or edema Neuro: nonfocal, patient AA&O x 4, speech intact, no facial droop, moving all extremities on command with equal strength 5/5 Results & Data Results & Data ([facility]) Vital Signs (Past 12 Hours) Vital Signs Temp Pulse Pulse Resp BP BP Pulse Ox 03/02/20 06:30 79 21 156/109 H 97 03/02/20 06:00 82 19 143/91 H 97 03/02/20 05:30 83 16 152/95 H 96 03/02/20 05:00 88 24 147/102 H 89 L 03/02/20 04:34 82 16 91 03/02/20 04:30 82 22 161/95 H 90 03/02/20 04:00 86 18 162/102 H 93 03/02/20 03:32 86 18 161/100 H 91 03/02/20 03:03 85 20 159/88 H 93 03/02/20 02:00 85 20 93 03/02/20 01:14 38.1 C H 104 H 20 159/99 H 95 Laboratory Results Lab Results 03/02/20 03/02/20 03/02/20 Range/Units 02:40 02:40 02:40 WBC 6.59 (4.8-10.8) K/uL RBC 4.75 (4.2-5.4) M/uL Hgb 13.8 (12.0-16.0) g/dL Hct 41.2 (37-47) % MCV 86.7 (80-100) fL MCH 29.1 (25-34) pg MCHC 33.5 (32-36) g/dL RDW Std Deviation 43.4 (36.4-46.3) fL RDW Coeff of Tiffany 13.7 (11.5-14.5) % Plt Count 255 (130-400) K/uL MPV 9.9 (7.4-10.4) fL Immature Gran % (Auto) 0.2 % Neut % (Auto) 77.2 % Lymph % (Auto) 16.5 % [place] % (Auto) 4.2 % Eos % (Auto) 1.7 % Baso % (Auto) 0.2 % Immature Gran # (Auto) 0.01 (0.00-0.02) K/uL Neut # (Auto) 5.09 (1.4-6.5) K/uL Lymph # (Auto) 1.09 L (1.2-3.4) K/uL [place] # (Auto) 0.28 (0.11-0.59) K/uL Eos # (Auto) 0.11 (0-0.5) K/uL Baso # (Auto) 0.01 (0-0.2) K/uL PT 11.3 (9.0-12.0) Seconds INR 1.1 (0.9-1.1) APTT 29.4 (21.0-31.0) Seconds PTT Ratio 1.1 D-Dimer (0-500) ug/L FEU Sodium 138 (136-145) mmol/L Potassium 3.5 (3.5-5.1) mmol/L Chloride 106 (98-107) mmol/L Carbon Dioxide 26 (21-32) mmol/L Anion Gap 6.0 (3-11) BUN 12 (7-18) mg/dl Creatinine 0.85 (0.6-1.2) mg/dl Est Cr Clr Drug Dosing 105.5 ml/min Est GFR ( Amer) 90.7 Est GFR (Non-Af Amer) 78.2 BUN/Creatinine Ratio 13.8 (10-20) Glucose 127 H (70-99) mg/dl Lactate (0.4-2.0) mmol/L Calcium 8.6 (8.5-10.1) mg/dl Magnesium 1.9 (1.8-2.4) mg/dl Total Bilirubin 0.5 (0.2-1) mg/dl AST 18 (15-37) U/L ALT 30 (12-78) U/L Alkaline Phosphatase 34 L (45-117) U/L Lactate Dehydrogenase (84-246) U/L Troponin I < 0.015 (0-0.045) ng/ml Total Protein 7.0 (6.4-8.2) gm/dl Albumin 3.3 L (3.4-5.0) gm/dl Globulin 3.7 (2.5-4.0) gm/dl Albumin/Globulin Ratio 0.9 (0.9-2) Procalcitonin (0-0.5) ng/ml Urine Color Urine Appearance (Clear) Urine pH (4.5-7.5) Ur Specific [place] (1.000-1.030) Urine Protein (Negative) Urine Glucose (UA) (Negative) Urine Ketones (Negative) Urine Blood (Negative) Urine Nitrite (Negative) Urine Bilirubin (Negative) Urine Urobilinogen (Negative) Ur Leukocyte Esterase (Negative) Adenovirus (PCR) (NotDetected) B. pertussis DNA (PCR) (NotDetected) B.parapertussis DNA PCR (NotDetected) C. pneumoniae DNA (PCR) (NotDetected) Coronavirus OC43 (PCR) (NotDetected) Coronavirus HKU1 (PCR) (NotDetected) Coronavirus 229E (PCR) (NotDetected) Coronavirus NL63 (PCR) (NotDetected) Human Metapneumovir PCR (NotDetected) Influenza Type A (PCR) (Neg) Influenza Type B (PCR) (Neg) M. pneumoniae (PCR) (NotDetected) Parainfluenza 1 (PCR) (NotDetected) Parainfluenza 2 (PCR) (NotDetected) Parainfluenza 3 (PCR) (NotDetected) Parainfluenza 4 (PCR) (NotDetected) RSV (PCR) (NotDetected) Entero/Rhino (PCR) (NotDetected) 03/02/20 03/02/20 03/02/20 Range/Units 02:40 02:40 02:40 WBC (4.8-10.8) K/uL RBC (4.2-5.4) M/uL Hgb (12.0-16.0) g/dL Hct (37-47) % MCV (80-100) fL MCH (25-34) pg MCHC (32-36) g/dL RDW Std Deviation (36.4-46.3) fL RDW Coeff of Tiffany (11.5-14.5) % Plt Count (130-400) K/uL MPV (7.4-10.4) fL Immature Gran % (Auto) % Neut % (Auto) % Lymph % (Auto) % [place] % (Auto) % Eos % (Auto) % Baso % (Auto) % Immature Gran # (Auto) (0.00-0.02) K/uL Neut # (Auto) (1.4-6.5) K/uL Lymph # (Auto) (1.2-3.4) K/uL [place] # (Auto) (0.11-0.59) K/uL Eos # (Auto) (0-0.5) K/uL Baso # (Auto) (0-0.2) K/uL PT (9.0-12.0) Seconds INR (0.9-1.1) APTT (21.0-31.0) Seconds PTT Ratio D-Dimer (0-500) ug/L FEU Sodium (136-145) mmol/L Potassium (3.5-5.1) mmol/L Chloride (98-107) mmol/L Carbon Dioxide (21-32) mmol/L Anion Gap (3-11) BUN (7-18) mg/dl Creatinine (0.6-1.2) mg/dl Est Cr Clr Drug Dosing ml/min Est GFR ( Amer) Est GFR (Non-Af Amer) BUN/Creatinine Ratio (10-20) Glucose (70-99) mg/dl Lactate 1.9 (0.4-2.0) mmol/L Calcium (8.5-10.1) mg/dl Magnesium (1.8-2.4) mg/dl Total Bilirubin (0.2-1) mg/dl AST (15-37) U/L ALT (12-78) U/L Alkaline Phosphatase (45-117) U/L Lactate Dehydrogenase 226 (84-246) U/L Troponin I (0-0.045) ng/ml Total Protein (6.4-8.2) gm/dl Albumin (3.4-5.0) gm/dl Globulin (2.5-4.0) gm/dl Albumin/Globulin Ratio (0.9-2) Procalcitonin < 0.05 (0-0.5) ng/ml Urine Color Urine Appearance (Clear) Urine pH (4.5-7.5) Ur Specific [place] (1.000-1.030) Urine Protein (Negative) Urine Glucose (UA) (Negative) Urine Ketones (Negative) Urine Blood (Negative) Urine Nitrite (Negative) Urine Bilirubin (Negative) Urine Urobilinogen (Negative) Ur Leukocyte Esterase (Negative) Adenovirus (PCR) (NotDetected) B. pertussis DNA (PCR) (NotDetected) B.parapertussis DNA PCR (NotDetected) C. pneumoniae DNA (PCR) (NotDetected) Coronavirus OC43 (PCR) (NotDetected) Coronavirus HKU1 (PCR) (NotDetected) Coronavirus 229E (PCR) (NotDetected) Coronavirus NL63 (PCR) (NotDetected) Human Metapneumovir PCR (NotDetected) Influenza Type A (PCR) (Neg) Influenza Type B (PCR) (Neg) M. pneumoniae (PCR) (NotDetected) Parainfluenza 1 (PCR) (NotDetected) Parainfluenza 2 (PCR) (NotDetected) Parainfluenza 3 (PCR) (NotDetected) Parainfluenza 4 (PCR) (NotDetected) RSV (PCR) (NotDetected) Entero/Rhino (PCR) (NotDetected) 03/02/20 03/02/20 03/02/20 Range/Units 02:40 02:40 02:40 WBC (4.8-10.8) K/uL RBC (4.2-5.4) M/uL Hgb (12.0-16.0) g/dL Hct (37-47) % MCV (80-100) fL MCH (25-34) pg MCHC (32-36) g/dL RDW Std Deviation (36.4-46.3) fL RDW Coeff of Tiffany (11.5-14.5) % Plt Count (130-400) K/uL MPV (7.4-10.4) fL Immature Gran % (Auto) % Neut % (Auto) % Lymph % (Auto) % [place] % (Auto) % Eos % (Auto) % Baso % (Auto) % Immature Gran # (Auto) (0.00-0.02) K/uL Neut # (Auto) (1.4-6.5) K/uL Lymph # (Auto) (1.2-3.4) K/uL [place] # (Auto) (0.11-0.59) K/uL Eos # (Auto) (0-0.5) K/uL Baso # (Auto) (0-0.2) K/uL PT (9.0-12.0) Seconds INR (0.9-1.1) APTT (21.0-31.0) Seconds PTT Ratio D-Dimer (0-500) ug/L FEU Sodium (136-145) mmol/L Potassium (3.5-5.1) mmol/L Chloride (98-107) mmol/L Carbon Dioxide (21-32) mmol/L Anion Gap (3-11) BUN (7-18) mg/dl Creatinine (0.6-1.2) mg/dl Est Cr Clr Drug Dosing ml/min Est GFR ( Amer) Est GFR (Non-Af Amer) BUN/Creatinine Ratio (10-20) Glucose (70-99) mg/dl Lactate (0.4-2.0) mmol/L Calcium (8.5-10.1) mg/dl Magnesium (1.8-2.4) mg/dl Total Bilirubin (0.2-1) mg/dl AST (15-37) U/L ALT (12-78) U/L Alkaline Phosphatase (45-117) U/L Lactate Dehydrogenase (84-246) U/L Troponin I (0-0.045) ng/ml Total Protein (6.4-8.2) gm/dl Albumin (3.4-5.0) gm/dl Globulin (2.5-4.0) gm/dl Albumin/Globulin Ratio (0.9-2) Procalcitonin (0-0.5) ng/ml Urine Color Yellow Urine Appearance Clear (Clear) Urine pH 6.0 (4.5-7.5) Ur Specific [place] 1.016 (1.000-1.030) Urine Protein Negative (Negative) Urine Glucose (UA) Negative (Negative) Urine Ketones Negative (Negative) Urine Blood Negative (Negative) Urine Nitrite Negative (Negative) Urine Bilirubin Negative (Negative) Urine Urobilinogen Negative (Negative) Ur Leukocyte Esterase Negative (Negative) Adenovirus (PCR) Not Detected (NotDetected) B. pertussis DNA (PCR) Not Detected (NotDetected) B.parapertussis DNA PCR Not Detected (NotDetected) C. pneumoniae DNA (PCR) Not Detected (NotDetected) Coronavirus OC43 (PCR) Not Detected (NotDetected) Coronavirus HKU1 (PCR) Not Detected (NotDetected) Coronavirus 229E (PCR) Not Detected (NotDetected) Coronavirus NL63 (PCR) Not Detected (NotDetected) Human Metapneumovir PCR Not Detected (NotDetected) Influenza Type A (PCR) Neg for Influ A Not Detected (Neg) Influenza Type B (PCR) Neg for Influ B Not Detected (Neg) M. pneumoniae (PCR) Not Detected (NotDetected) Parainfluenza 1 (PCR) Not Detected (NotDetected) Parainfluenza 2 (PCR) Not Detected (NotDetected) Parainfluenza 3 (PCR) Not Detected (NotDetected) Parainfluenza 4 (PCR) Not Detected (NotDetected) RSV (PCR) Not Detected (NotDetected) Entero/Rhino (PCR) Not Detected (NotDetected) 03/02/20 Range/Units 02:40 WBC (4.8-10.8) K/uL RBC (4.2-5.4) M/uL Hgb (12.0-16.0) g/dL Hct (37-47) % MCV (80-100) fL MCH (25-34) pg MCHC (32-36) g/dL RDW Std Deviation (36.4-46.3) fL RDW Coeff of Tiffany (11.5-14.5) % Plt Count (130-400) K/uL MPV (7.4-10.4) fL Immature Gran % (Auto) % Neut % (Auto) % Lymph % (Auto) % [place] % (Auto) % Eos % (Auto) % Baso % (Auto) % Immature Gran # (Auto) (0.00-0.02) K/uL Neut # (Auto) (1.4-6.5) K/uL Lymph # (Auto) (1.2-3.4) K/uL [place] # (Auto) (0.11-0.59) K/uL Eos # (Auto) (0-0.5) K/uL Baso # (Auto) (0-0.2) K/uL PT (9.0-12.0) Seconds INR (0.9-1.1) APTT (21.0-31.0) Seconds PTT Ratio D-Dimer 330 (0-500) ug/L FEU Sodium (136-145) mmol/L Potassium (3.5-5.1) mmol/L Chloride (98-107) mmol/L Carbon Dioxide (21-32) mmol/L Anion Gap (3-11) BUN (7-18) mg/dl Creatinine (0.6-1.2) mg/dl Est Cr Clr Drug Dosing ml/min Est GFR ( Amer) Est GFR (Non-Af Amer) BUN/Creatinine Ratio (10-20) Glucose (70-99) mg/dl Lactate (0.4-2.0) mmol/L Calcium (8.5-10.1) mg/dl Magnesium (1.8-2.4) mg/dl Total Bilirubin (0.2-1) mg/dl AST (15-37) U/L ALT (12-78) U/L Alkaline Phosphatase (45-117) U/L Lactate Dehydrogenase (84-246) U/L Troponin I (0-0.045) ng/ml Total Protein (6.4-8.2) gm/dl Albumin (3.4-5.0) gm/dl Globulin (2.5-4.0) gm/dl Albumin/Globulin Ratio (0.9-2) Procalcitonin (0-0.5) ng/ml Urine Color Urine Appearance (Clear) Urine pH (4.5-7.5) Ur Specific [place] (1.000-1.030) Urine Protein (Negative) Urine Glucose (UA) (Negative) Urine Ketones (Negative) Urine Blood (Negative) Urine Nitrite (Negative) Urine Bilirubin (Negative) Urine Urobilinogen (Negative) Ur Leukocyte Esterase (Negative) Adenovirus (PCR) (NotDetected) B. pertussis DNA (PCR) (NotDetected) B.parapertussis DNA PCR (NotDetected) C. pneumoniae DNA (PCR) (NotDetected) Coronavirus OC43 (PCR) (NotDetected) Coronavirus HKU1 (PCR) (NotDetected) Coronavirus 229E (PCR) (NotDetected) Coronavirus NL63 (PCR) (NotDetected) Human Metapneumovir PCR (NotDetected) Influenza Type A (PCR) (Neg) Influenza Type B (PCR) (Neg) M. pneumoniae (PCR) (NotDetected) Parainfluenza 1 (PCR) (NotDetected) Parainfluenza 2 (PCR) (NotDetected) Parainfluenza 3 (PCR) (NotDetected) Parainfluenza 4 (PCR) (NotDetected) RSV (PCR) (NotDetected) Entero/Rhino (PCR) (NotDetected) Diagnostic Findings XR chest 1V portable CLINICAL HISTORY: SEPSIS dyspnea COMPARISON STUDY: 09/17/2019 FINDINGS: Mild stable cardiomegaly. Slight bibasilar interstitial prominence considered chronic. Minimal lungs are clear. IMPRESSION: Mild cardiomegaly. Chronic basilar interstitial change. ACT 112: Negative or not required by law. The above report was generated using voice recognition software. It may contain grammatical, syntax or spelling errors. Electronically signed by: Charlie Dominguez M.D. 03/02/2020 5:59 AM Dictated: 03/02/20557 Transcribed: 03/02/20557 ECG Additional Comments: The study shows NSR at 93bpm, NO=196, QRS=92, EXr=106, TWI present in anterior leads, no ST elevations Code Status & VTE Plan Code Status FULL VTE Prophylaxis Plan VTE Prophylaxis will be ordered: Yes PG Care Time/CCT Total # of Minutes Spent Total Time Spent with Patient: Total time spent is greater than 50% in coordination of care (as documented) at patient's floor/unit and/or counseling patient: Coding Level of Care Code 13385 Initial Inpt Care Lvl 3 Diagnoses Fever R50.9 Fever type: unspecified Atypical chest pain R07.89 Asthma J45.909 Asthma severity: unspecified severity Asthma persistence: unspecified Asthma complication type: uncomplicated Essential (primary) hypertension I10 Depression with anxiety F41.8 (1) Fever Fever type: unspecified Qualified Code(s): R50.9 - Fever, unspecified (2) Asthma Asthma severity: unspecified severity Asthma persistence: unspecified Asthma complication type: uncomplicated Qualified Code(s): J45.909 - Unspecified asthma, uncomplicated
[2020-03-02] MEDS ORDERED: ONDANSETRON INJ 2 MG/ML 2 ML VIAL IV PRN (08:27)
[2020-03-02] MEDS ORDERED: ALBUTEROL HFA 8 GM INHALER INH PRN (08:27)
[2020-03-02] MEDS ORDERED: AMLODIPINE BESYLATE 5 MG TAB PO SCH (09:00)
[2020-03-02] MEDS ORDERED: FEXOFENADINE HCL 180 MG TAB PO SCH (09:00)
[2020-03-02] MEDS ORDERED: SPIRONOLACTONE 12.5 MG TAB PO SCH (09:00)
[2020-03-02] MEDS ORDERED: ASPIRIN 81 MG ECTAB PO SCH (09:00)
[2020-03-02] MEDS ORDERED: SODIUM CHLORIDE 0.9% 1000ML 1,000 ML IV SCH (09:00)
[2020-03-02] MEDS ORDERED: LEVONORGESTREL PV PRN (09:15)
[2020-03-02 10:44] LABS: D Dimer 250 ug/L FEU (0-500)
--- NOTE | 2020-03-02 10:49 | Electrocardiogram Report ---
Test Reason : Blood Pressure : / mmHG Vent. Rate : 093 BPM Atrial Rate : 093 BPM P-R Int : 144 ms QRS Dur : 092 ms QT Int : 374 ms P-R-T Axes : 032 024 034 degrees QTc Int : 465 ms Normal sinus rhythm RSR' or QR pattern in V1 suggests right ventricular conduction delay Nonspecific T wave abnormality Prolonged QT Abnormal ECG When compared with ECG of 17-SEP-2019 21:13, T wave inversion more evident in Anterior leads Confirmed by Lawson Louie ([id number]) on 03/02/2020 10:48:51 AM Referred By: Hola Smith Confirmed By:Lawson Louie
[2020-03-02 11:14] LABS: C Reactive Protein 1.77 mg/dl (0-0.29); Ferritin 109.6 ng/ml (8-388); Troponin I < 0.015 ng/ml (0-0.045)
[2020-03-02] MEDS: ACETAMINOPHEN 325 MG TAB PO PRN ×2 (12:57→21:39)
[2020-03-02] MEDS: HYDROCODONE/HOMATROPINE SYRUP 5MG/1.5MG 5ML UDP PO PRN (15:09)
[2020-03-02] MEDS: CITALOPRAM 40 MG TAB PO SCH (19:37)
[2020-03-02] MEDS: MONTELUKAST SODIUM 10 MG TABLET PO SCH (19:37)
[2020-03-02] MEDS ORDERED: MONTELUKAST SODIUM 10 MG TABLET PO SCH (21:00)
[2020-03-02] MEDS ORDERED: CITALOPRAM 40 MG TAB PO SCH (21:00)
--- NOTE | 2020-03-02 21:09 | History & Physical Bridge Note ---
Date of Service March 02, 2020 History & Physical Bridge Note I have examined the patient, reviewed the History & Physical and in the interval since the performance of the History & Physical I have noted the following changes of clinical significance: Patient tested positive for COVID-19 after in-house rapid test was done today. Her also had his test turned positive today. Because she had already been seen by the attending admitting physician today, I did not see her in person. I communicated with the nurse throughout the day. The patient continues to have cough and muscle aches and was requesting something for pain and cough. She reports she has had Hycodan cough syrup in the past and I prescribed this. She remained mildly hypoxic intermittently throughout the day but was not in any respiratory distress as per nursing. She was placed on 2 L O2 at times. Markers of inflammation were ordered and were not elevated. Her troponin was negative x2 and therefore her chest pain was not related to acute coronary syndrome. She does have a mildly prolonged QTC and I would not recommend hyd roxychloroquine therapy at this time especially as it has not been proven to be of benefit. We will avoid steroids at this time as it is not noted that she is wheezing, however if she is wheezing, could consider starting prednisone Continued stay, but if improving by tomorrow and not requiring significant amount of oxygen, could consider discharging to home, although she does seem to have some high risk comorbidities such as morbid obesity, severe CYNTHIA, and asthma. Added her CPAP for nightly use.
[2020-03-02] MEDS: ENOXAPARIN INJ 40 MG/0.4 ML SYR SQ SCH (21:36)
[2020-03-02] MEDS ORDERED: LORazepam 0.5 MG TAB PO STA (21:47)
[2020-03-02] MEDS ORDERED: ONDANSETRON INJ 2 MG/ML 2 ML VIAL IV STA (22:29)
[2020-03-03 05:22] LABS: Basophils # (auto) 0.01 K/uL (0-0.2); Basophils % (auto) 0.2 %; Eosinophils # (auto) 0.02 K/uL (0-0.5); Eosinophils % (auto) 0.5 %; Hematocrit (blood only) 42.1 % (37-47); Hemoglobin 13.8 g/dL (12.0-16.0); Immature Granulocytes # (auto) 0.01 K/uL (0.00-0.02); Immature Granulocytes % (auto) 0.2 %; Lymphocytes # (auto) 1.07 K/uL (1.2-3.4); Lymphocytes % (auto) 24.3 %; Mean Corpuscular Hemoglobin 29.1 pg (25-34); Mean Corpuscular Hgb Conc 32.8 g/dL (32-36); Mean Corpuscular Volume 88.6 fL (80-100); Mean Platelet Volume 9.8 fL (7.4-10.4); Monocytes # (auto) 0.18 K/uL (0.11-0.59); Monocytes % (auto) 4.1 %; Neutrophils # (auto) 3.12 K/uL (1.4-6.5); Neutrophils % (auto) 70.7 %; Platelet Count 229 K/uL (130-400); RDW Coefficient of Variation 14.2 % (11.5-14.5); RDW Standard Deviation 46.4 fL (36.4-46.3); Red Blood Count 4.75 M/uL (4.2-5.4); White Blood Count 4.41 K/uL (4.8-10.8)
[2020-03-03 05:31] LABS: D Dimer 340 ug/L FEU (0-500)
[2020-03-03] MEDS: ACETAMINOPHEN 325 MG TAB PO PRN ×2 (05:43→21:08)
[2020-03-03 05:48] LABS: Albumin Level 3.4 gm/dl (3.4-5.0); BUN Creatinine Ratio 15.4 (10-20); Calcium 8.6 mg/dl (8.5-10.1); Creatinine Clr Calc Pharmacy 119.5 ml/min; Est GFR (African American) 105.5; Magnesium 2.2 mg/dl (1.8-2.4); Potassium 3.8 mmol/L (3.5-5.1)
[2020-03-03 05:52] LABS: Albumin Globulin Ratio 0.9 (0.9-2); Bilirubin,Total 0.6 mg/dl (0.2-1); C Reactive Protein 1.74 mg/dl (0-0.29); Globulin 3.9 gm/dl (2.5-4.0); Total Protein 7.3 gm/dl (6.4-8.2)
[2020-03-03] MEDS: AMLODIPINE BESYLATE 5 MG TAB PO SCH (07:40)
[2020-03-03] MEDS: ASPIRIN 81 MG ECTAB PO SCH (07:40)
[2020-03-03] MEDS: FEXOFENADINE HCL 180 MG TAB PO SCH (07:41)
[2020-03-03] MEDS: SPIRONOLACTONE 12.5 MG TAB PO SCH (07:41)
[2020-03-03] MEDS: IBUPROFEN 600 MG TAB PO PRN ×3 (08:08→23:47)
--- NOTE | 2020-03-03 10:33 | Electrocardiogram Report ---
Test Reason : Blood Pressure : / mmHG Vent. Rate : 099 BPM Atrial Rate : 099 BPM P-R Int : 140 ms QRS Dur : 096 ms QT Int : 372 ms P-R-T Axes : 035 022 044 degrees QTc Int : 477 ms Normal sinus rhythm RSR' or QR pattern in V1 suggests right ventricular conduction delay Nonspecific T wave abnormality Abnormal ECG When compared with ECG of 02-MAR-2020 02:19, Nonspecific T wave abnormality, worse in Lateral leads Confirmed by Lawson Louie ([id number]) on 03/03/2020 10:33:00 AM Referred By: Hola Smith Confirmed By:Lawson Louie
--- NOTE | 2020-03-03 13:56 | Hospitalist Progress Note ---
Date of Service March 03, 2020 Assessment & Plan (1) COVID-19 virus infection: rapid test positive after learning that her tested positive she is not in distress, just c/o malaise, some dyspnea, chills t max here of 38.7 which was last night continue with supportive care with oxygen, Tylenol, ibuprofen on 2L NC, no wheezing on exam day to day decision on discharge, will need to be off oxygen (2) Fever: due to COVID 19 t max of 38.7 last night use Tylenol and ibuprofen PRN (3) Atypical chest pain: Patient with chest pressure. EKG with TWI present in anterior leads. Troponin x 2 negative continue aspirin, no concerns for ACS, no further work up (4) Asthma: Patient with moderate persistent asthma -Albuterol HFA. Avoid nebs due to COVID -Continue Singulair and Fexofenadine -Will hold Symbicort for now no wheezing on my exam and RN also stated that she did not hear wheezing if she develops wheezing would consider Prednisone but would check with pulmonary first (5) Essential (primary) hypertension: Blood pressure stable today -Continue Amlodipine -Continue Spironolactone (6) Depression with anxiety: Chronic. Stable -Continue Citalopram 40mg po qHS F/E/N - appetite a little poor but drinking well, stop IV fluids Ppx - Low risk for DVT Code - Full Admission and Anticipated Discharge Date Admission Date: March 02, 2020 Subjective patient feeling a lot of muscle aches and fatigue today Tylenol did not help at all, tried ibuprofen 600mg this morning and it helped a lot had a fever last night she still feels short of breath, especially on exertion, admits to a dry cough poor appetite today, drinking well enough labs show a leukopenia of 4k and lymphopenia D dimer low at 340 Cr and electrolytes normal Review of Systems Review of Systems: All systems reviewed & are unremarkable except as noted in HPI & below Constitutional: + fever, + chills, + body aches, + fatigue, + malaise and + weakness Respiratory: + cough, + dyspnea and + dyspnea on exertion; no sputum production Cardiovascular: no chest pain and no edema Gastrointestinal: no abdominal pain, no nausea, no vomiting, no constipation and no diarrhea/loose stools Physical Exam Constitutional: WD/WN, vitals as above + overweight Eyes: PERRL, conjunctivae normal, anicteric sclerae ENMT: external ear and nose normal, oropharynx normal Neck: trachea midline, no thyromegaly Respiratory: normal respiratory effort, lungs clear to auscultation Cardiovascular: RRR, no murmur, no edema Gastrointestinal (Abdomen): normal bowel sounds, soft, nontender, no hepatosplenomegaly Musculoskeletal: no cyanosis or clubbing, extremities motor strength 5/5 Skin: no rashes, warm and dry Neurologic: patellar DTR's 2+ bilat, sensation intact and PERRL, EOMI, accommodation nl, no face palsy, no dysarthria Psychiatric: A+Ox3, euthymic affect Lymphatic: no cervical or axillary lymphadenopathy Results & Data Results & Data ([facility]) Vital Signs (Past 12 Hours) Vital Signs Temp Pulse Pulse Resp BP Pulse Ox 03/03/20 11:37 36.6 C 89 16 143/85 H 92 03/03/20 07:38 36.6 C 91 H 18 141/89 H 92 03/03/20 07:35 82 L 03/03/20 07:16 97 H 03/03/20 06:17 91 Laboratory Results Laboratory Results - last 24 hr 03/02/20 03/03/20 03/03/20 10:14 04:49 04:49 WBC 4.41 L RBC 4.75 Hgb 13.8 Hct 42.1 MCV 88.6 MCH 29.1 MCHC 32.8 RDW Std Deviation 46.4 H RDW Coeff of Tiffany 14.2 Plt Count 229 MPV 9.8 Immature Gran % (Auto) 0.2 Neut % (Auto) 70.7 Lymph % (Auto) 24.3 Andrews % (Auto) 4.1 Eos % (Auto) 0.5 Baso % (Auto) 0.2 Immature Gran # (Auto) 0.01 Neut # (Auto) 3.12 Lymph # (Auto) 1.07 L Andrews # (Auto) 0.18 Eos # (Auto) 0.02 Baso # (Auto) 0.01 D-Dimer 340 Sodium Potassium Chloride Carbon Dioxide Anion Gap BUN Creatinine Est Cr Clr Drug Dosing Est GFR ( Amer) Est GFR (Non-Af Amer) BUN/Creatinine Ratio Glucose Calcium Magnesium 2.2 Total Bilirubin AST ALT Alkaline Phosphatase Lactate Dehydrogenase Total Creatine Kinase C-Reactive Protein Total Protein Albumin Globulin Albumin/Globulin Ratio 03/03/20 03/03/20 04:49 04:49 WBC RBC Hgb Hct MCV MCH MCHC RDW Std Deviation RDW Coeff of Tiffany Plt Count MPV Immature Gran % (Auto) Neut % (Auto) Lymph % (Auto) Andrews % (Auto) Eos % (Auto) Baso % (Auto) Immature Gran # (Auto) Neut # (Auto) Lymph # (Auto) Andrews # (Auto) Eos # (Auto) Baso # (Auto) D-Dimer Sodium 139 Potassium 3.8 Chloride 104 Carbon Dioxide 28 Anion Gap 7.0 BUN 12 Creatinine 0.75 Est Cr Clr Drug Dosing 119.5 Est GFR ( Amer) 105.5 Est GFR (Non-Af Amer) 91.0 BUN/Creatinine Ratio 15.4 Glucose 115 H Calcium 8.6 Magnesium 2.2 Total Bilirubin 0.6 AST 21 ALT 33 Alkaline Phosphatase 27 L Lactate Dehydrogenase 242 Total Creatine Kinase 41 C-Reactive Protein 1.74 H Total Protein 7.3 Albumin 3.4 Globulin 3.9 Albumin/Globulin Ratio 0.9 Medications Administered Current Inpatient Medications Acetaminophen (Tylenol) 650 mg PO Q4H PRN PRN Reason: pain/fever Stop: 04/01/20 08:26 Last Admin: 03/03/20 05:43 Dose: 650 mg Documented by: Albuterol (Ventolin Hfa) 2 puffs INH Q4H PRN PRN Reason: sob Stop: 04/01/20 08:26 Amlodipine Besylate (Norvasc) 10 mg PO QAM@0800 [facility] Stop: 04/02/20 07:59 Last Admin: 03/03/20 07:40 Dose: 10 mg Documented by: Aspirin (Ecotrin Ectab) 81 mg PO DAILY@0800 [facility] Stop: 04/01/20 08:59 Last Admin: 03/03/20 07:40 Dose: 81 mg Documented by: Citalopram Hydrobromide (Celexa) 40 mg PO HS@2000 [facility] Stop: 04/01/20 19:59 Last Admin: 03/02/20 19:37 Dose: 40 mg Documented by: Enoxaparin Sodium (Lovenox) 40 mg SQ Q24H [facility] Stop: 04/01/20 19:59 Last Admin: 03/02/20 21:36 Dose: 40 mg Documented by: Fexofenadine HCl (Ellie) 180 mg PO QAM@0800 [facility] Stop: 04/01/20 08:59 Last Admin: 03/03/20 07:41 Dose: 180 mg Documented by: Hydrocodone Bit/Homatropine Methylb (Hycodan) 5 ml PO Q4H PRN PRN Reason: Cough Stop: 03/16/20 14:58 Last Admin: 03/02/20 15:09 Dose: 5 ml Documented by: Ibuprofen (Motrin) 600 mg PO Q6H PRN PRN Reason: Pain Stop: 04/02/20 07:52 Last Admin: 03/03/20 08:08 Dose: 600 mg Documented by: Montelukast Sodium (Singulair) 10 mg PO QPM@1999 [facility] Stop: 04/01/20 19:59 Last Admin: 03/02/20 19:37 Dose: 10 mg Documented by: Levonorgestrel ( Mirena) Patient's Own Med 1 ea PV PRN PRN PRN Reason: . Stop: 04/01/20 09:14 Spironolactone (Aldactone) 12.5 mg PO QAM@0800 [facility] Stop: 04/01/20 08:59 Last Admin: 03/03/20 07:41 Dose: 12.5 mg Documented by: PG Care Time/CCT Total # of Minutes Spent Total Time Spent with Patient: Total time spent is greater than 50% in coordination of care (as documented) at patient's floor/unit and/or counseling patient: Coding Level of Care Code 16232 Subseq Hosp Care Lvl 3 Diagnoses COVID-19 virus infection U07.1 Fever R50.9 Fever type: unspecified Atypical chest pain R07.89 Asthma J45.909 Asthma severity: unspecified severity Asthma persistence: unspecified Asthma complication type: uncomplicated Essential (primary) hypertension I10 Depression with anxiety F41.8 (1) Fever Fever type: unspecified Qualified Code(s): R50.9 - Fever, unspecified (2) Asthma Asthma severity: unspecified severity Asthma persistence: unspecified Asthma complication type: uncomplicated Qualified Code(s): J45.909 - Unspecified asthma, uncomplicated
[2020-03-03] MEDS: ENOXAPARIN INJ 40 MG/0.4 ML SYR SQ SCH (19:34)
[2020-03-03] MEDS: MONTELUKAST SODIUM 10 MG TABLET PO SCH (19:35)
[2020-03-03] MEDS: CITALOPRAM 40 MG TAB PO SCH (19:35)
[2020-03-03] MEDS: LORazepam 0.5 MG TAB PO PRN (21:08)
--- NOTE | 2020-03-03 22:14 | XRay Report ---
XR chest 1V portable CLINICAL HISTORY: Concern for pneumonia COMPARISON STUDY: Chest radiograph March 02, 2020. FINDINGS: Lung volumes are normal. Lungs are clear. There is no pneumothorax or pleural effusion. Car diac size is stable. Mediastinal contours are normal. There is no evidence for pulmonary edema. [place] tion of the right hemidiaphragm is unchanged. IMPRESSION: No acute cardiopulmonary findings. ACT 112: Negative or not required by law. Electronically signed by: Robb Stanford M.D. 03/03/2020 10:13 PM
[2020-03-04] MEDS: IBUPROFEN 600 MG TAB PO PRN ×2 (07:53→17:14)
[2020-03-04] MEDS: FEXOFENADINE HCL 180 MG TAB PO SCH (07:55)
[2020-03-04] MEDS: ASPIRIN 81 MG ECTAB PO SCH (07:55)
[2020-03-04] MEDS: SPIRONOLACTONE 12.5 MG TAB PO SCH (07:55)
[2020-03-04] MEDS: AMLODIPINE BESYLATE 5 MG TAB PO SCH (07:55)
[2020-03-04] MEDS ORDERED: POLYETHYLENE (MIRALAX) 17 GM PACK PO SCH (10:00)
[2020-03-04] MEDS: POLYETHYLENE (MIRALAX) 17 GM PACK PO SCH (12:32)
[2020-03-04] MEDS: cefTRIAXone SODIUM 2,000 MG in DEXTROSE 5% 50 ML IV SCH (13:13)
[2020-03-04] MEDS: AZITHROMYCIN 250 MG TAB PO SCH (13:14)
--- NOTE | 2020-03-04 15:55 | Hospitalist Progress Note ---
Date of Service March 04, 2020 Assessment & Plan (1) COVID-19 virus infection: rapid test positive after learning that her tested positive she is not in distress, just c/o malaise, some dyspnea, chills t max here of 38.7 on 03/02, had a fever of 38.2 on 03/03, no documented fevers today continue with supportive care with oxygen, Tylenol, ibuprofen on 2L NC, no wheezing on exam day to day decision on discharge, will need to be off oxygen (2) Bacterial pneumonia: possible secondary bacterial pneumonia, cough more productive today of green sputum CXR last evening with no obvious infiltrate crackles in right base check CBC, procalcitonin in the morning, repeat CXR will start on Rocephin IV and Zithromax PO today, would complete 5 day course continue Albuterol, will order flutter valve, encourage to be OOB in chair (3) Fever: due to COVID 19 t max of 38.7 two days ago, no fevers today use Tylenol and ibuprofen PRN (4) Atypical chest pain: Patient with chest pressure. EKG with TWI present in anterior leads. Troponin x 2 negative continue aspirin, no concerns for ACS, no further work up (5) Asthma: Patient with moderate persistent asthma -Albuterol HFA. Avoid nebs due to COVID -Continue Singulair and Fexofenadine -Will hold Symbicort for now no wheezing on my exam and RN also stated that she did not hear wheezing if she develops wheezing would consider Prednisone but would check with pulmonary first (6) Essential (primary) hypertension: Blood pressure stable today -Continue Amlodipine -hold Spironolactone (7) Depression with anxiety: Chronic. Stable -Continue Citalopram 40mg po qHS F/E/N - appetite a little poor but drinking well, stopped IV fluids on 03/03 Ppx - Low risk for DVT Code - Full Admission and Anticipated Discharge Date Admission Date: March 02, 2020 Anticipated date of discharge: 03/06/20 Subjective patient feeling slightly more short of breath, just when she talks a lot or walks she denies every feeling like she is in distress she says it just feels like she cannot take a full, deep inhalation she has a productive cough today, she says it is fairly constant, green sputum, no blood she has not noticed any wheezing she is drinking well, eating more, says it is the most she has had to eat in days no labs today she had a fever yesterday but not quite as high called to update him, no answer, left him a voicemail Review of Systems Review of Systems: All systems reviewed & are unremarkable except as noted in HPI & below Constitutional: + fever, + chills, + sweats, + body aches, + fatigue and + weakness Respiratory: + cough, + chest congestion, + dyspnea, + dyspnea on exertion and + sputum production; no pain with cough and no wheezing Cardiovascular: no chest pain Musculoskeletal: + muscle weakness and + body aches Physical Exam Constitutional: WD/WN, vitals as above + overweight Eyes: PERRL, conjunctivae normal, anicteric sclerae ENMT: external ear and nose normal, oropharynx normal Neck: trachea midline, no thyromegaly Respiratory: normal respiratory effort and + cough; no respiratory distress and no labored breathing Auscultation: + crackles (right base); no rales, no rhonchi and no wheezes Cardiovascular: RRR, no murmur, no edema Gastrointestinal (Abdomen): normal bowel sounds, soft, nontender, no hepatosplenomegaly Musculoskeletal: no cyanosis or clubbing, extremities motor strength 5/5 Skin: no rashes, warm and dry Neurologic: patellar DTR's 2+ bilat, sensation intact and PERRL, EOMI, accommodation nl, no face palsy, no dysarthria Psychiatric: A+Ox3, euthymic affect Lymphatic: no cervical or axillary lymphadenopathy Results & Data Results & Data ([facility]) Vital Signs (Past 12 Hours) Vital Signs Temp Pulse Pulse Resp BP Pulse Ox 03/04/20 11:44 76 20 138/79 94 03/04/20 08:00 67 03/04/20 07:35 37.1 C 73 18 145/94 H 93 03/04/20 04:39 36.4 C 64 18 130/82 93 Medications Administered Current Inpatient Medications Acetaminophen (Tylenol) 650 mg PO Q4H PRN PRN Reason: pain/fever Stop: 04/01/20 08:26 Last Admin: 03/03/20 21:08 Dose: 650 mg Documented by: Albuterol (Ventolin Hfa) 2 puffs INH Q4H PRN PRN Reason: sob Stop: 04/01/20 08:26 Last Admin: 03/04/20 12:32 Dose: 2 puffs Documented by: Amlodipine Besylate (Norvasc) 10 mg PO QAM@0800 [facility] Stop: 04/02/20 07:59 Last Admin: 03/04/20 07:55 Dose: 10 mg Documented by: Aspirin (Ecotrin Ectab) 81 mg PO DAILY@0800 [facility] Stop: 04/01/20 08:59 Last Admin: 03/04/20 07:55 Dose: 81 mg Documented by: Azithromycin (Zithromax) 500 mg PO QAM [facility]; Protocol Stop: 03/11/20 08:59 Last Admin: 03/04/20 13:14 Dose: 500 mg Documented by: Citalopram Hydrobromide (Celexa) 40 mg PO HS@2000 [facility] Stop: 04/01/20 19:59 Last Admin: 03/03/20 19:35 Dose: 40 mg Documented by: Enoxaparin Sodium (Lovenox) 40 mg SQ Q24H [facility] Stop: 04/01/20 19:59 Last Admin: 03/03/20 19:34 Dose: 40 mg Documented by: Fexofenadine HCl (Ellie) 180 mg PO QAM@0800 [facility] Stop: 04/01/20 08:59 Last Admin: 03/04/20 07:55 Dose: 180 mg Documented by: Hydrocodone Bit/Homatropine Methylb (Hycodan) 5 ml PO Q4H PRN PRN Reason: Cough Stop: 03/16/20 14:58 Last Admin: 03/02/20 15:09 Dose: 5 ml Documented by: Ceftriaxone Sodium 2,000 mg/ (Dextrose) 70 mls @ 100 mls/hr IV DAILY@1200 [facility]; Protocol Stop: 03/11/20 11:59 Last Infusion: 03/04/20 14:38 Dose: Infused Documented by: Ibuprofen (Motrin) 600 mg PO Q6H PRN PRN Reason: Pain Stop: 04/02/20 07:52 Last Admin: 03/04/20 07:53 Dose: 600 mg Documented by: Lorazepam (Ativan) 0.25 mg PO HS PRN PRN Reason: Insomnia Stop: 04/02/20 20:01 Last Admin: 03/03/20 21:08 Dose: 0.25 mg Documented by: Montelukast Sodium (Singulair) 10 mg PO QPM@1999 [facility] Stop: 04/01/20 19:59 Last Admin: 03/03/20 19:35 Dose: 10 mg Documented by: Levonorgestrel ( Mirena) Patient's Own Med 1 ea PV PRN PRN PRN Reason: . Stop: 04/01/20 09:14 Polyethylene Glycol (Miralax Powder Packet) 17 gm PO DAILY@0800 [facility] Stop: 04/03/20 09:59 Last Admin: 03/04/20 12:32 Dose: 17 gm Documented by: Spironolactone (Aldactone) 12.5 mg PO QAM@0800 [facility] Stop: 04/01/20 08:59 Last Admin: 03/04/20 07:55 Dose: 12.5 mg Documented by: PG Care Time/CCT Total # of Minutes Spent Total Time Spent with Patient: Total time spent is greater than 50% in coordination of care (as documented) at patient's floor/unit and/or counseling patient: Coding Level of Care Code 86841 Subseq Hosp Care Lvl 3 Diagnoses COVID-19 virus infection U07.1 Bacterial pneumonia J15.9 Fever R50.9 Fever type: unspecified Atypical chest pain R07.89 Asthma J45.909 Asthma complication type: uncomplicated Asthma persistence: unspecified Asthma severity: unspecified severity Essential (primary) hypertension I10 Depression with anxiety F41.8 (1) Fever Fever type: unspecified Qualified Code(s): R50.9 - Fever, unspecified (2) Asthma Asthma complication type: uncomplicated Asthma persistence: unspecified Asthma severity: unspecified severity Qualified Code(s): J45.909 - Unspecified asthma, uncomplicated
[2020-03-04] MEDS: HYDROCODONE/HOMATROPINE SYRUP 5MG/1.5MG 5ML UDP PO PRN (18:51)
[2020-03-04] MEDS: MONTELUKAST SODIUM 10 MG TABLET PO SCH (19:42)
[2020-03-04] MEDS: CITALOPRAM 40 MG TAB PO SCH (19:43)
[2020-03-04] MEDS: ENOXAPARIN INJ 40 MG/0.4 ML SYR SQ SCH (19:43)
[2020-03-04] MEDS: LORazepam 0.5 MG TAB PO PRN (23:42)
[2020-03-05 05:25] LABS: Basophils # (auto) 0.01 K/uL (0-0.2); Basophils % (auto) 0.4 %; Eosinophils # (auto) 0.06 K/uL (0-0.5); Eosinophils % (auto) 2.2 %; Hemoglobin 13.3 g/dL (12.0-16.0); Immature Granulocytes # (auto) 0.01 K/uL (0.00-0.02); Immature Granulocytes % (auto) 0.4 %; Lymphocytes # (auto) 1.18 K/uL (1.2-3.4); Lymphocytes % (auto) 42.4 %; Mean Corpuscular Hemoglobin 28.6 pg (25-34); Mean Corpuscular Hgb Conc 32.4 g/dL (32-36); Mean Corpuscular Volume 88.2 fL (80-100); Mean Platelet Volume 10.1 fL (7.4-10.4); Monocytes # (auto) 0.45 K/uL (0.11-0.59); Monocytes % (auto) 16.2 %; Neutrophils # (auto) 1.07 K/uL (1.4-6.5); Neutrophils % (auto) 38.4 %; Platelet Count 228 K/uL (130-400); RDW Coefficient of Variation 14.2 % (11.5-14.5); RDW Standard Deviation 45.9 fL (36.4-46.3); Red Blood Count 4.65 M/uL (4.2-5.4); White Blood Count 2.78 K/uL (4.8-10.8)
[2020-03-05] MEDS: IBUPROFEN 600 MG TAB PO PRN (05:28)
[2020-03-05 05:54] LABS: D Dimer 240 ug/L FEU (0-500)
[2020-03-05 05:58] LABS: Albumin Level 3.2 gm/dl (3.4-5.0); BUN Creatinine Ratio 17.9 (10-20); Calcium 8.4 mg/dl (8.5-10.1); Creatinine Clr Calc Pharmacy 121.1 ml/min; Est GFR (African American) 107.2; Est GFR (Non-African American) 92.5; Potassium 3.4 mmol/L (3.5-5.1)
[2020-03-05 06:01] LABS: Albumin Globulin Ratio 0.8 (0.9-2); Bilirubin,Total 0.4 mg/dl (0.2-1); C Reactive Protein 0.69 mg/dl (0-0.29); Globulin 3.8 gm/dl (2.5-4.0)
[2020-03-05] MEDS: AMLODIPINE BESYLATE 5 MG TAB PO SCH (08:29)
[2020-03-05] MEDS: ASPIRIN 81 MG ECTAB PO SCH (08:30)
[2020-03-05] MEDS: AZITHROMYCIN 250 MG TAB PO SCH (08:31)
[2020-03-05] MEDS: POLYETHYLENE (MIRALAX) 17 GM PACK PO SCH (08:31)
[2020-03-05] MEDS: FEXOFENADINE HCL 180 MG TAB PO SCH (08:31)
--- NOTE | 2020-03-05 08:34 | XRay Report ---
XR chest 1V portable CLINICAL HISTORY: Pneumonia COMPARISON STUDY: 03/03/2020 FINDINGS: The heart remains enlarged. There is mild elevation of the right hemidiaphragm. There is no failure. There is no focal pulmonary consolidation. There are no significant pleural effusions.[ IMPRESSION: Stable mild cardiomegaly and elevation of the right hemidiaphragm. No evidence of focal p ulmonary consolidation ACT 112: Negative or not required by law. Electronically signed by: Abelardo Aj M.D. 03/05/2020 8:33 AM
--- NOTE | 2020-03-05 11:54 | History & Physical Bridge Note ---
Date of Service March 05, 2020 History & Physical Bridge Note I personally performed this exam: Patient desaturated to 87% on room air while at rest. Patient was put on 1L nasal cannula O2 and saturation returned to 95%.
[2020-03-05] MEDS: cefTRIAXone SODIUM 2,000 MG in DEXTROSE 5% 50 ML IV SCH (11:57)
--- NOTE | 2020-03-05 16:30 | Discharge Summary ---
Date of Service March 05, 2020 Admission HPI Per Admitting Provider 54yo C female with HTN, HLP and Asthma. Tuesday evening she developed abdominal discomfort and nausea then developed some shortness of breath and chest tightness followed by a fever to 104. Dry cough. Patient's had similar symptoms of nausea/vomiting and abdominal pain. He has a co-worker that recently tested positive for SARS-CoV2 virus. Her was tested at [facility] on and is waiting on his results. His symptoms are nearly resolved at this time. No additional complaints. No dysuria, abdominal pain, nausea, vomiting ER Course: Acetaminophen, Albuterol, Famotidine, Toradol, NSS Principal Diagnosis Covid-19 pneumonia Discharge Exam Constitutional WD/WN, vitals as above + disheveled, + in distress and + overweight Eyes EOM intact bilaterally; no conjunctival abnormality ENMT external ear and nose normal, oropharynx normal Neck trachea midline, no thyromegaly normal visual inspection Respiratory normal respiratory effort, lungs clear to auscultation no respiratory distress Cardiovascular RRR, no murmur, no edema Gastrointestinal (Abdomen) Inspection/Auscultation: abdomen normal to inspection; abdomen not distended Musculoskeletal no cyanosis or clubbing, extremities motor strength 5/5 Skin no rashes, warm and dry Neurologic moves all extremities and awake Psychiatric Orientation: alert, oriented to person and cooperative Discharge Data Allergies Allergy/AdvReac Type Severity Reaction Status Date / Time morphine AdvReac Severe N/V Verified 03/02/20 02:38 Consultations 03/02/20 06:15 ED Decision to Admit Stat Hospital Course (1) COVID-19 virus infection: Rapid test positive after learning that her tested positive. - Had a fever of 38.2 on 03/03, no documented fevers since - Continued nasal cannula O2 -> Weaned to 1L NC and discharged on such. - Follow up with PCP via tele-health in near future. Will be living separately from her son. With her in a camper who is also positive. - Discussed quarantine with her. Will avoid any contact (apart from the ) for at least 3 days after all symptoms are gone AND at least after 7 days. (2) Bacterial pneumonia: Possible secondary bacterial pneumonia, cough more productive of green sputum. CXR with no obvious infiltrate & procalcitonin normal. - Discharged on azithromycin x 5 days. - Continue albuterol, flutter valve. Can use nebulizers at home, but warned about aerosolization. (3) Atypical chest pain: Patient with chest pressure. EKG with TWI present in anterior leads. Troponin x 2 negative. - Continue aspirin, no concerns for ACS, no further work up (4) Asthma: Patient with moderate persistent asthma. - Continued Singulair and Fexofenadine. - Can use nebulizer on discharge at home with above warning. (5) Essential (primary) hypertension: Blood pressure stable today. - Continue amlodipine & spironolactone (6) Depression with anxiety: Chronic. Stable. - Continue Citalopram 40mg po qHS Total Time Total Time Spent Total Time Spent (In Minutes): 35 Discharge Plan Discharge Items Patient Disposition: Home - Self-Care Reason For Visit: FEVER/SOB, TWI ON EKG Discharge Diagnosis: Coronavirus Condition on Discharge: Good Activity: Resume your previous activity Non-emergency contact: Primary Care Provider Call non-emergency contact if: your symptoms worsen and your temperature is above 101 Follow-up/Referrals: Leoncio Corbin MD [Primary Care Provider] - Diet: Regular Addtl Attending Provider Instructions: You were admitted to the hospital with shortness of breath that is due to Covid- 19/coronavirus. You may have a super-imposed bacterial pneumonia, and we are giving you antibiotics to treat that. We are not giving you steroids as there is uncertain evidence of whether these help or hurt patients with coronavirus. Please hold your Celebrex for at least 2 weeks. There is evidence that NSAIDs may worsen coronavirus, and we want to keep your kidneys and GI tract safe as well. Please discuss when you can resume your Celebrex with your PCP. Please use your oxygen at 1L at home. You may use your nebulizer at home, but please be aware that it may cause small particles of virus to hang in the air, and your son or anyone other than your should not enter your camper for at least 3 days after using your nebulizer. For quarantine, please do not interact with anyone other than your for at least 7 days after your first symptoms began AND at least 72 hours after your last symptoms go away. So, if you have a fever today, but then no others, you should not see anyone until at least Kisha 3rd. Or if you have continued shortness of breath, you will need to wait until at least 3 days past when your breathing returns to normal. For your son, I discussed his case with [facility] personnel. They DO NOT recommend testing in asymptomatic people, but they recommend that he act as if he was infected. Therefore, he should also self- isolate for 14 days to be sure he doesn't not come in contact with anyone. This means he SHOULD NOT go to the grocery store, to work, to the gas station, or really even leave the house except for isolated walks. He should NOT even come in contact with you in case he has NOT been infected. If he is symptom-free for 14 days, it is assumed he does not have coronavirus. Please call your PCP when you get home to arrange a video-chat/telephone call to check in within a few days. If you feel more shortness of breath, please speak with your PCP right away to head off any further breathing issues. Pending Studies at Discharge: No Stand-Alone Forms: My [facility], Smoking Cessation Medications and DC Order Prescriptions: New azithromycin [Zithromax] 250 mg Tablet 250 mg PO QAM Qty: 3 RF: 0 Continued citalopram 40 mg tablet 40 mg PO HS Qty: 90 RF: 2 amlodipine 10 mg tablet 10 mg PO QAM Qty: 90 RF: 2 (DME) CPAP Machine Misc See Rx Instructions .ROUTE .MEDSUPPLY Qty: 1 RF: 0 fexofenadine [Ellie Allergy] 180 mg Tablet 180 mg PO QAM RF: 0 budesonide-formoterol [Symbicort] 160-4.5 mcg/actuation Hfa Aerosol Inhaler 2 puff INHALATION BID RF: 0 Mirena 20 mcg/24 hours (5 yrs) 52 mg Intrauterine Device 1 device INTRAUTERINE UD RF: 0 cholecalciferol (vitamin D3) [Vitamin D3] 2,000 unit tablet 3,000 units PO HS RF: 0 montelukast [Singulair] 10 mg Tablet 10 mg PO QPM RF: 0 spironolactone 25 mg tablet 12.5 mg PO QAM RF: 0 Discontinued celecoxib [Celebrex] 50 mg capsule 200 mg PO BID RF: 0 Discharge Orders: Discharge Order (Routine); Ordered 03/05/20 Ordered By: Malcolm Mix Admission Data Admit Date/Time: 03/02/20 06:51 Attending Provider: Malcolm Mix Admit Provider: Lindsey Srinivasan Primary Care Provider: Leoncio Corbin Other Providers: Malcolm Mix Other Interventions: Discharge Summary Assessment (RN) Last Done: 03/05/20 13:09 DC Date/Time DO NOT enter until pt leaves facility: 03/05/20 14:10 Coding Level of Care Code D/C Day Management >30 mins Diagnoses COVID-19 virus infection U07.1 Bacterial pneumonia J15.9 Atypical chest pain R07.89 Asthma J45.909 Asthma severity: unspecified severity Asthma persistence: unspecified Asthma complication type: uncomplicated Essential (primary) hypertension I10 Depression with anxiety F41.8
[2020-03-06] MEDS ORDERED: AZITHROMYCIN 250 MG TAB PO SCH (08:00)
== END 2020-03-05 14:10 | disposition home or self-care (01) | DRG 177 ==
LOC: ED 01:11 → 2W 06:51 → SUATTDRO 06:51 → 2W 07:58 → 2E 14:43

== ENCOUNTER 2025-01-29 02:41 | Observation (INO) ==
[2025-01-29 03:19] LABS: Basophils # (auto) 0.04 K/uL (0.00-0.20); Basophils % (auto) 0.3 %; Eosinophils # (auto) 0.25 K/uL (0.00-0.50); Hematocrit (blood only) 49.8 % (37.0-47.0); Hemoglobin 16.3 g/dl (12.0-16.0); Immature Granulocytes # (auto) 0.05 K/uL (0.01-0.20); Immature Granulocytes % (auto) 0.4 %; Lymphocytes % (auto) 17.2 %; Mean Corpuscular Hemoglobin 28.8 pg (25.0-34.0); Mean Corpuscular Hgb Conc 32.7 g/dL (32.0-36.0); Mean Corpuscular Volume 88.1 fL (80.0-100.0); Monocytes # (auto) 1.05 K/uL (0.11-0.59); Monocytes % (auto) 8.2 %; Neutrophils # (auto) 9.23 K/uL (1.40-6.50); Neutrophils % (auto) 71.9 %; Platelet Count 312 K/uL (130-400); RDW Coefficient of Variation 13.6 % (11.5-14.5); RDW Standard Deviation 43.6 fL (36.4-46.3); Red Blood Count 5.65 M/uL (4.20-5.40); White Blood Count 12.82 K/ul (4.8-10.8)
[2025-01-29] MEDS: KETOROLAC TROMETHAMINE 15 MG/ML VIAL IV STA (03:25)
[2025-01-29] MEDS: fentaNYL citrate PF 100 MCG/2 ML VIAL IV STA (03:25)
[2025-01-29] MEDS: ONDANSETRON INJ 2 MG/ML 2 ML VIAL IV STA (03:26)
[2025-01-29 03:57] LABS: Adenovirus PCR Not Detected (NotDetected); Bordetella parapertussis PCR Not Detected (NotDetected); Bordetella pertussis PCR Not Detected (NotDetected); Chlamydia pneumoniae PCR Not Detected (NotDetected); Coronavirus 229E PCR Not Detected (NotDetected); Coronavirus CoV-2 (COVID19)PCR Not Detected (NotDetected); Coronavirus HKU1 PCR Not Detected (NotDetected); Coronavirus NL63 PCR Not Detected (NotDetected); Coronavirus OC43PCR Not Detected (NotDetected); Human Metapneumovirus PCR Not Detected (NotDetected); Influenza A PCR Not Detected (NotDetected); Influenza B PCR Not Detected (NotDetected); Mycoplasma pneumoniae PCR Not Detected (NotDetected); Parainfluenza Virus 1 PCR Not Detected (NotDetected); Parainfluenza Virus 2 PCR Not Detected (NotDetected); Parainfluenza Virus 3 PCR Not Detected (NotDetected); Parainfluenza Virus 4 PCR Not Detected (NotDetected); Respiratory Syncytial VirusPCR Not Detected (NotDetected); Rhinovirus/Enterovirus PCR DETECTED (NotDetected)
--- NOTE | 2025-01-29 03:59 | XRay Report ---
EXAM: XR chest 1V portable CLINICAL HISTORY: Chest pain, nonspecific. TECHNIQUE: An X-ray image of the chest is obtained in AP projection. COMPARISON: CR 10/31/2023. FINDINGS: Pulmonary Parenchyma: Lungs are clear bilaterally. No evidence of consolidation, collapse, or focal opacities. No pulmonary nodules are identified. Prominent bronchovascular markings and both hilar shadows may be due to pulmonary congestion. Clinical correlation is advised. No evidence of pleural effusion or pleural thickening. Heart and Mediastinum: Heart size and shape are normal. No mediastinal widening or masses. No hilar or mediastinal lymphadenopathy. Bony Thorax: Bony thorax appears intact without fractures or deformities. Soft Tissues: Soft tissues overlying the chest wall are unremarkable. Elevated right diaphragmatic copula. IMPRESSION: 1. Prominent bronchovascular markings and both hilar shadows may be due to pulmonary congestion. Clinical correlation is advised. 2. Elevated right diaphragmatic copula. 3. No significant interval changes. Electronically signed by Nba Cohen 01-29-2025 03:59 AM
[2025-01-29 04:00] LABS: Alanine Aminotransferase 28 U/L (7-52); BUN Creatinine Ratio 14.5 (10-20); Bilirubin,Total 0.7 mg/dl (0.2-1.0); Blood Urea Nitrogen 11 mg/dl (6-23); Calcium 9.1 mg/dl (8.6-10.3); Carbon Dioxide 31 mmol/L (21-32); Chloride 101 mmol/L (98-107); Creatinine Clr Calc Pharmacy 109.7 ml/min; Glucose 136 mg/dl (70-99(Fasting)); Lipase 64 U/L (11-82); Total Protein 7.9 gm/dl (6.0-8.3); Troponin I High Sensitivity < 2.3 pg/ml (0-14)
--- NOTE | 2025-01-29 04:39 | History & Physical Report ---
Date of Service January 29, 2025 Assessment & Plan (1) Chest pain: (2) Rhinovirus: (3) Acute respiratory failure: (4) Hypertension: Plan Patient is a 59-year-old female with past medical history of asthma, CYNTHIA on CPAP, hypertension. She presented to the ED due to chest pressure, sore throat, shortness of breath, and cough that began on Tuesday. She describes the chest pressure is gradually worsening and feels as though something is pushing on her chest. She denies any cardiac history. She is being admitted for cardiac workup including a stress echocardiogram. She tested positive for rhinovirus in the ED. Low suspicion for cardiac cause, however will complete workup regarding history of right bundle branch block seen on EKG and chest pressure. Cardiac workup negative, suspect chest pressure due to rhinovirus/bronchitis. #chest pain EKG showed RBBB, no acute changes troponin < 2.3 electrolytes stable Heart healthy diet a1c 5.6 05/2024 lipid panel 10/2024 WNL; triglycerides 137, total cholesterol 189, LDL 119, HLD 43 dobutamine stress echocardiogram ordered monitor on telemetry EKG with chest pain as needed if cardiac workup negative, suspect chest pain 2/2 rhinovirus/acute bronchitis #rhinovirus isolation precautions incentive spirometry Tessalon Perles and Tylenol prn promote oral hydration #hypoxia hypoxic after receiving 100mcg Iv fentanyl in ED 2/2 opioids vs rhinovirus CXR negative no leukocytosis, afebrile, other VSS oxygen prn, wean O2 as tolerated defer further opioid use DuoNebs every 6 hours as needed continue home inhalers and montelukast for asthma #hypertension BP 219/137 on admission; suspect 2/2 stress and missing evening medications Will order a.m. medications early nursing adjusted BP cuff and repeat 121/89 continue amlodipine and spironolactone Chronic stable diagnoses: OSACPAP at bedtime depressioncontinue amitriptyline history of Sepharose syndrome- follows with rheumatology, continue sulfasalazine Osteoarthritiscontinue celecoxib VTE ppx: SCDs Diet: heart healthy Dispo: med/tele anticipate discharge home 01/29/25 after stress echocardiogram Admission and Anticipated Discharge Date Admission Date: 01/29/2025 History of Present Illness Chief Complaint: illness Primary Care Provider: Melida Lanier MD Patient is a 59-year-old female with past medical history of asthma, CYNTHIA on CPAP, hypertension. She presented to the ED due to chest pressure, sore throat, shortness of breath, and cough that began on Tuesday. She describes the chest pressure is gradually worsening and feels as though something is pushing on her chest. She denies any cardiac history. She is being admitted for cardiac workup including a stress echocardiogram. She tested positive for rhinovirus in the ED. Low suspicion for cardiac cause, however will complete workup regarding history of right bundle branch block seen on EKG and chest pressure. Cardiac workup negative, suspect chest pressure due to rhinovirus/bronchitis. Patient seen at bedside with her present. She stated that on Tuesday she began with headache and chest pressure which is gradually worsened and felt like something is pushing on her chest. She denies any radiation and stated it is midsternal. It is not reproducible on palpation. She also has a sore throat, shortness of breath, and cough with green sputum production. She also endorses diffuse muscle achiness. She denies any dizziness or lightheadedness, abdominal pain, nausea, vomiting. She has had poor p.o. intake today. She denies nicotine or alcohol use. She missed her evening medications last night, blood pressure 219/137 on admission likely 2/2 missing PM hypertensive medications. She wishes to be full code. Patient received Toradol 15 Mg IV, Zofran 4 Mg IV, and fentanyl 100 mcg IV in the ED for her chest pain. Patient then became hypoxic and was placed on nasal cannula 2L. Allergies Allergy/AdvReac Type Severity Reaction Status Date / Time morphine AdvReac Intermediate N/V Verified 01/29/25 08:46 Home Medications Medication Instructions Recorded Confirmed Type montelukast 10 mg tablet 10 mg PO QPM #90 tabs 08/10/23 01/29/25 Rx (Singulair) fexofenadine 180 mg tablet 180 mg PO QAM PRN Other 10/19/23 01/29/25 History (Ellie Allergy) amlodipine 5 mg tablet 5 mg PO DAILY #90 tabs 02/16/24 01/29/25 Rx amitriptyline 10 mg tablet 10 mg PO HS #90 tabs 04/20/24 01/29/25 Rx duloxetine 60 mg capsule,delayed 60 mg PO DAILY #90 caps 04/20/24 01/29/25 Rx release (Cymbalta) CPAP Machine #1 ea 07/01/24 03/24/25 Rx albuterol sulfate 90 mcg/actuation 2 puff inhalation BID PRN 08/27/24 01/29/25 Rx aerosol inhaler Shortness Of Breath #8.5 grams cholecalciferol (vitamin D3) 1,250 1,250 mcg PO Q7D #8 caps 10/30/24 01/29/25 Rx mcg (50,000 unit) capsule cyanocobalamin (vitamin B-12) 1,000 mcg PO DAILY #30 tabs 10/30/24 01/29/25 Rx 1,000 mcg tablet celecoxib 200 mg capsule (Celebrex) 200 mg PO DAILY 01/28/25 01/29/25 History spironolactone 50 mg tablet 50 mg PO BID 01/28/25 01/29/25 History sulfasalazine 500 mg tablet 500 mg PO DAILY 01/28/25 01/29/25 History (Azulfidine) Past Med/Surg History Problem List (Updated 01/29/25 @ 07:00 by Elina Feliz DO) Acute electrocardiogram changes (Acute) Substernal chest pain (Acute) Acute bronchitis due to Rhinovirus (Acute) Acute respiratory failure Hypoxia Rhinovirus Chest pain Depression History of right breast cancer Arthritis, multiple joint involvement Dysuria Morbid obesity (Chronic) Vitamin D deficiency (Chronic) Hyperlipemia (Chronic) Osteoarthritis Mixed incontinence urge and stress Severe obstructive sleep apnea Nocturnal hypoxemia Hypertension (Acute) Medical History Family history of premature coronary heart disease Vulvitis Menopausal symptom Colon polyp, hyperplastic Asthma Postmenopausal History of 2019 novel coronavirus disease (COVID-19) Chronic back pain Chronic hand pain Chronic SI joint pain History of anesthesia reaction QT prolongation Psoriatic arthritis Abnormal ECG Radial head fracture Surgical History History of mastectomy History of tooth extraction History of arthroscopy of left shoulder History of wisdom tooth extraction Hx of cholecystectomy Family History Father Diabetes Coronary heart disease Heart disease Myocardial infarction Mother COPD (chronic obstructive pulmonary disease) Sister Cervical cancer Uterine cancer TIA (transient ischemic attack) Other No family history of adverse response to anesthesia Denies family history of Ovarian cancer Prostate cancer Breast cancer Colorectal cancer Social History Smoking Status: Never smoker Second Hand Exposure: No; Do You Dip or Chew Tobacco: No; Tobacco Cessation Education Requested by Patient: No Hx Alcohol Use: Yes Alcohol type: beer, wine and hard liquor Alcohol Intake Frequency: 2-4 x/Month Alcohol Intake Frequency Comment: 1x/week Hx Substance Use: No Preferred Language: Arabic Communication Ability: Effective Visual Impairment: No Limitations Hearing Ability: Normal Graphic Design Manager Required: No Beliefs That Will Affect Care: None marital status: marital status details: 2 kids Current Living Situation: Spouse Current Living Situation Comment: AND 2 child current occupational status: employed 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 Non-toxic appearing. HEENT- EOMI, mucous membranes moist. Hearing grossly intact. Heart-normal S1 and S2. No murmurs, rubs or gallops. Lungs-clear bilaterally, no respiratory distress, no accessory muscle use. Abdomen-normal bowel sounds and soft. No ascites noted. Non-tender. Extremities- no clubbing, cyanosis, or edema. Rheumatologic-normal range of motion. Psychiatric-normal affect. Results & Data Results & Data Vital Signs (Past 12 Hours) Vital Signs Temp Pulse Pulse Resp BP BP Pulse Ox 01/29/25 03:42 84 19 200/125 H 92 01/29/25 03:28 85 14 209/136 H 97 01/29/25 03:25 88 01/29/25 03:08 96 01/29/25 02:56 01/29/25 02:45 37.2 C 93 H 20 163/109 H 96 O2 Del Method O2 Flow Rate 01/29/25 03:42 Nasal Cannula 2 01/29/25 03:28 Room Air 01/29/25 03:25 01/29/25 03:08 Room Air 01/29/25 02:56 Room Air 01/29/25 02:45 Room Air Laboratory Results reviewed CBC, CMP, troponin, lipase, BioFire Diagnostic Findings reviewed CXR ECG Additional Comments: right branch block, no acute changes seen Code Status & VTE Plan Code Status full code VTE Prophylaxis Plan VTE Prophylaxis will be ordered: Yes Supervising Physician Co-Signing Physician Notes Attending addendum: I have physically seen this patient, have supervised the MARYSE's activities, and agree with the H&P unless as otherwise noted. Assessment and Plan: The patient is a 59-year-old female with past medical history including asthma, CYNTHIA on CPAP, hypertension, peripheral neuropathy, vitamin D deficiency, vitamin B12 deficiency, and allergic rhinitis. She presents to the emergency department with complaint of chest pressure, sore throat, shortness of breath, cough with dyspnea on exertion that began 3 days ago. She reports that the chest pressure was worsening earlier in the day today, and presented to the ED for assessment. Workup in the emergency department included Bio[employer] testing positive for enterovirus/rhinovirus. Patient is being admitted to the [facility], will order stress echocardiogram for the a.m. and follow-up as needed #Chest pain/hypertension- The patient will be admitted to telemetry for serial cardiac enzymes, serial EKG's, cardiac rhythm monitoring and a 2-D echocardiogram with Dopplers. Order dobutamine stress echocardiogram EKG shows right bundle branch block with no acute ST-T changes Troponin less than 2.3 Most recent hemoglobin A1c 05/30 was 5.6 Enterovirus/rhinovirus/mild asthma exacerbation- Causing mild hypoxia, but occurred after receiving fentanyl 100 mcg IV from the ED Normal oxygenation prior to that DuoNebs every 6 hours as needed Continue usual home inhalers and montelukast Chronic stable medical conditions: CYNTHIA-CPAP at bedtime Depression-continue amitriptyline Arthritis-Continue sulfasalazine, and Celebrex PG Care Time/CCT Total # of Minutes Spent Total Time Spent with Patient: Total time spent is greater than 50% in coordination of care (as documented) at patient's floor/unit and/or counseling patient: Coding Level of Care Code 27743 INT INP/OBS CARE 3/75MIN Diagnoses Chest pain R07.9 Rhinovirus B34.8 Acute respiratory failure J96.00 Hypertension I10 Hypertension type: essential hypertension (4) Hypertension Hypertension type: essential hypertension Qualified Code(s): I10 - Essential (primary) hypertension
[2025-01-29 05:10] LABS: Albumin Level 4.4 gm/dl (3.4-5.0)
[2025-01-29] MEDS: amLODIPine BESYLATE 5 MG TAB PO ONE (05:37)
--- NOTE | 2025-01-29 07:00 | Emergency Department Note ---
Impression & Plan Acute bronchitis due to Rhinovirus, Substernal chest pain, Acute electrocardiogram changes Admit to the [facility] ED Provider Note NAME: STEVE GARCIA AGE: 59 SEX: Female INFORMANT: Patient ED PROVIDER(S): Elina Feliz DO CHIEF COMPLAINT: Sore throat; shortness of breath; chest pressure PLAN: Disposition: admit to the [facility] MEDICAL DECISION MAKING: this is a 59-year-old female patient with a past history of asthma and hypertension who presents to the emergency department with a headache since Tuesday, chest pressure and pain over the weekend and shortness of breath and sore throat today. Patient has a strong family history of heart disease as her father had his first cardiac event at age 30 and at age 59. On EKG, the patient has T wave inversions in the lateral leads which is new in comparison to previous EKGs. Laboratory studies reveal a normal troponin. There is moderate leukocytosis with a white count of 12.8. H&H are elevated. Glucose was 136. Chest x-ray shows evidence of pulmonary vascular congestion but no obvious consolidation. Upper respiratory bio fire testing was positive for enterovirus/rhinovirus. Patient was medicated with Toradol and fentanyl for the pain in her throat, chest pain and headache. This gave her moderate relief of her symptoms. I remain concerned about the patient's EKG changes and significant family history of heart disease. Care/management discussed with: partnership development manager and [facility] Triage Nursing notes: reviewed and agree with them. Vital Signs: reviewed and unremarkable Differential Diagnosis: pneumonia, STEMI, NSTEMI, bronchitis, URI, GERD, viral illness, asthma exacerbation Diagnostics, independently interpreted by me: ECG: normal sinus rhythm at a rate of 87 with a right bundle branch block. T wave inversions in lead V4 and V5 which are new findings compared to previous EKGs. There is no ectopy. Cardiac Monitoring: Normal sinus rhythm at a rate of 91 Imaging studies: portable chest x-ray: Mild pulmonary vascular congestion with no obvious consolidation as per my independent interpretation HPI: 59 year old Female arrives for evaluation of chest pressure; shortness of breath and sore throat. presents to the emergency department with a headache since Tuesday, chest pressure and pain over the weekend and shortness of breath and sore throat today. Patient has a strong family history of heart disease as her father had his first cardiac event at age 30 and at age 59. . PAST MEDICAL HISTORY: See Below, PAST SURGICAL HISTORY: See Below, SOCIAL HISTORY: See Below, HOME MEDICATIONS: see list ALLERGIES: morphine VITALS: See Below PHYSICAL EXAMINATION: HEENT: Head - normocephalic and atraumatic. Pupils are equal, round, and reactive to light. Extraocular eye muscles are intact, and sclera are anicteric. Nose - moist nasal mucosa without discharge. Mouth - moist buccal mucosa. Oropharynx is mildly erythematous and there is no tonsillar exudate or edema noted. Neck: Supple; no JVD, nuchal rigidity, cervical lymphadenopathy, or auscultated bruits. Heart: Regular rate and rhythm. There is a normal S1 and S2 with no murmurs, clicks, or gallops appreciated. Lungs: Clear to auscultation bilaterally with no wheezes, rales, or rhonchi. Abdomen: Soft, completely nontender, nondistended, with good bowel sounds. There are no palpable pulsatile masses or hepatosplenomegaly. There is no guarding, rigidity, or rebound noted. Extremities: No evidence of cyanosis, clubbing, or edema. There are easily palpable peripheral pulses. Skin: warm and dry with good turgor and no rashes. 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 A complete history and physical was performed. Twelve-lead EKG was obtained. An order was placed for continuous cardiac monitoring. The patient was in a normal sinus rhythm at a rate of 91. Portable chest x-ray was performed. Upper respiratory bio fire test was obtained. Patient was given a dose of IV fentanyl and IV Toradol for her significant sore throat, headache and chest discomfort. I reviewed laboratory results with the patient. She had moderate relief of her discomfort. I remain concerned about her presenting symptoms given her family history. Past Med/Surg History Problem List (Updated 01/29/25 @ 07:00 by Elina Feliz DO) Acute electrocardiogram changes (Acute) Substernal chest pain (Acute) Acute bronchitis due to Rhinovirus (Acute) Acute respiratory failure Hypoxia Rhinovirus Chest pain Depression History of right breast cancer Arthritis, multiple joint involvement Dysuria Morbid obesity (Chronic) Vitamin D deficiency (Chronic) Hyperlipemia (Chronic) Osteoarthritis Mixed incontinence urge and stress Severe obstructive sleep apnea Nocturnal hypoxemia Hypertension (Acute) Medical History Family history of premature coronary heart disease Vulvitis Menopausal symptom Colon polyp, hyperplastic Asthma Postmenopausal History of 2019 novel coronavirus disease (COVID-19) Chronic back pain Chronic hand pain Chronic SI joint pain History of anesthesia reaction QT prolongation Psoriatic arthritis Abnormal ECG Radial head fracture Surgical History History of mastectomy History of tooth extraction History of arthroscopy of left shoulder History of wisdom tooth extraction Hx of cholecystectomy Family History Father Diabetes Coronary heart disease Heart disease Myocardial infarction Mother COPD (chronic obstructive pulmonary disease) Sister Cervical cancer Uterine cancer TIA (transient ischemic attack) Other No family history of adverse response to anesthesia Denies family history of Ovarian cancer Prostate cancer Breast cancer Colorectal cancer Social History Smoking Status: Never smoker Second Hand Exposure: No; Do You Dip or Chew Tobacco: No; Tobacco Cessation Education Requested by Patient: No Hx Alcohol Use: Yes Alcohol type: beer, wine and hard liquor Alcohol Intake Frequency: 2-4 x/Month Alcohol Intake Frequency Comment: 1x/week Hx Substance Use: No Preferred Language: Ukrainian Communication Ability: Effective Visual Impairment: No Limitations Hearing Ability: Normal Grants Director Required: No Beliefs That Will Affect Care: None marital status: marital status details: 2 kids Current Living Situation: Spouse Current Living Situation Comment: AND 2 child current occupational status: employed 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 How many Children do You have: 2 Other Information That Helps Us Care for You: No Feels Safe at Home: Yes Safety Concerns: Feels Safe At This Time Childhood Exposure to Second-Hand Smoke: Yes caffeine: Yes Dental Care, Regularly: No Physical Activity Frequency: 1-2 Times per Week Seatbelt Use: always Sunscreen Use: Yes Assistive Devices: CPAP and Glasses Allergies Allergies Allergy/AdvReac Type Severity Reaction Status Date / Time morphine AdvReac Intermediate N/V Verified 01/29/25 08:46 Home Meds Home Medications Medication Instructions Recorded Confirmed fexofenadine 180 mg tablet 180 mg PO QAM PRN Other 10/19/23 01/29/25 (Ellie Allergy) celecoxib 200 mg capsule (Celebrex) 200 mg PO DAILY 01/28/25 01/29/25 spironolactone 50 mg tablet 50 mg PO BID 01/28/25 01/29/25 sulfasalazine 500 mg tablet 500 mg PO DAILY 01/28/25 01/29/25 (Azulfidine) Previous Rx's Medication Instructions Recorded montelukast 10 mg tablet 10 mg PO QPM #90 tabs 08/10/23 (Singulair) amlodipine 5 mg tablet 5 mg PO DAILY #90 tabs 02/16/24 amitriptyline 10 mg tablet 10 mg PO HS #90 tabs 04/20/24 duloxetine 60 mg capsule,delayed 60 mg PO DAILY #90 caps 04/20/24 release (Cymbalta) CPAP Machine #1 ea 05/07/24 albuterol sulfate 90 mcg/actuation 2 puff inhalation BID PRN 08/27/24 aerosol inhaler Shortness Of Breath #8.5 grams cholecalciferol (vitamin D3) 1,250 1,250 mcg PO Q7D #8 caps 10/30/24 mcg (50,000 unit) capsule cyanocobalamin (vitamin B-12) 1,000 mcg PO DAILY #30 tabs 10/30/24 1,000 mcg tablet Results & Data (ED) Vital Signs Vital Signs - 24 hr 01/29/25 02:45 01/29/25 02:56 01/29/25 03:08 Temperature 37.2 C Temperature Source Oral Pulse Rate 93 H Pulse Rate [Apical] Pulse Rhythm [Apical] Pulse Strength [Apical] Respiratory Rate 20 Respiratory Effort / Characteristics Respiratory Depth Normal Respiratory Pattern Blood Pressure 163/109 H Blood Pressure [Right Arm] Blood Pressure Mean 127 Blood Pressure Mean [Right Arm] Pulse Oximetry 96 96 Oxygen Delivery Method Room Air Room Air Room Air Oxygen Flow Rate Sepsis Recent Fever Within 48 Hours No Sepsis New/Unexplained Change in Mental Status N/A Sepsis Action Taken by Nursing No Action Required 01/29/25 03:25 01/29/25 03:28 01/29/25 03:42 Temperature Temperature Source Pulse Rate 88 84 Pulse Rate [Apical] 85 Pulse Rhythm [Apical] Regular Pulse Strength [Apical] Normal Respiratory Rate 14 19 Respiratory Effort / Characteristics Non-Labored Spontaneous Respiratory Depth Normal Respiratory Pattern Regular Blood Pressure 200/125 H Blood Pressure [Right Arm] 209/136 H Blood Pressure Mean 150 Blood Pressure Mean [Right Arm] 160 Pulse Oximetry 97 92 Oxygen Delivery Method Room Air Nasal Cannula Oxygen Flow Rate 2 Sepsis Recent Fever Within 48 Hours Sepsis New/Unexplained Change in Mental Status Sepsis Action Taken by Nursing 01/29/25 04:39 01/29/25 05:00 Temperature Temperature Source Pulse Rate 83 82 Pulse Rate [Apical] Pulse Rhythm [Apical] Pulse Strength [Apical] Respiratory Rate 25 H 23 Respiratory Effort / Characteristics Respiratory Depth Respiratory Pattern Blood Pressure 184/127 H 219/137 H Blood Pressure [Right Arm] Blood Pressure Mean 146 164 Blood Pressure Mean [Right Arm] Pulse Oximetry 94 95 Oxygen Delivery Method Nasal Cannula Nasal Cannula Oxygen Flow Rate 2 2 Sepsis Recent Fever Within 48 Hours Sepsis New/Unexplained Change in Mental Status Sepsis Action Taken by Nursing Laboratory Data 01/29/25 03:05 01/29/25 04:25 Lab Results 01/29/25 01/29/25 01/29/25 Range/Units 02:54 03:05 04:25 WBC 12.82 H (4.8-10.8) K/ul RBC 5.65 H (4.20-5.40) M/uL Hgb 16.3 H (12.0-16.0) g/dl Hct 49.8 H (37.0-47.0) % MCV 88.1 (80.0-100.0) fL MCH 28.8 (25.0-34.0) pg MCHC 32.7 (32.0-36.0) g/dL RDW Std Deviation 43.6 (36.4-46.3) fL RDW Coeff of Tiffany 13.6 (11.5-14.5) % Plt Count 312 (130-400) K/uL MPV 10.0 (9.4-12.4) fL Immature Gran % (Auto) 0.4 % Neut % (Auto) 71.9 % Lymph % (Auto) 17.2 % [place] % (Auto) 8.2 % Eos % (Auto) 2.0 % Baso % (Auto) 0.3 % Neut # (Auto) 9.23 H (1.40-6.50) K/uL Lymph # (Auto) 2.20 (1.20-3.40) K/uL [place] # (Auto) 1.05 H (0.11-0.59) K/uL Eos # (Auto) 0.25 (0.00-0.50) K/uL Baso # (Auto) 0.04 (0.00-0.20) K/uL Immature Gran # (Auto) 0.05 (0.01-0.20) K/uL Sodium TNP 138 Potassium TNP 4.0 Chloride 101 (98-107) mmol/L Carbon Dioxide 31 (21-32) mmol/L Anion Gap TNP BUN 11 (6-23) mg/dl Creatinine 0.76 (0.6-1.2) mg/dl Est Cr Clr Drug Dosing 109.7 ml/min eGFR 90.77 BUN/Creatinine Ratio 14.5 (10-20) Glucose 136 H (70-99(Fasting)) mg/dl Calcium 9.1 (8.6-10.3) mg/dl Total Bilirubin 0.7 (0.2-1.0) mg/dl AST TNP 22 ALT 28 (7-52) U/L Alkaline Phosphatase TNP 31 L Troponin I High Sens < 2.3 (0-14) pg/ml Total Protein 7.9 (6.0-8.3) gm/dl Albumin TNP 4.4 Globulin TNP Albumin/Globulin Ratio TNP Lipase 64 (11-82) U/L Adenovirus (PCR) Not Detected (NotDetected) B. pertussis DNA (PCR) Not Detected (NotDetected) B.parapertussis DNA PCR Not Detected (NotDetected) C. pneumoniae DNA (PCR) Not Detected (NotDetected) Coronavirus OC43 (PCR) Not Detected (NotDetected) Coronavirus HKU1 (PCR) Not Detected (NotDetected) Coronavirus 229E (PCR) Not Detected (NotDetected) SARS-CoV-2 (PCR) Not Detected (NotDetected) Coronavirus NL63 (PCR) Not Detected (NotDetected) Human Metapneumovir PCR Not Detected (NotDetected) Influenza Type A (PCR) Not Detected (NotDetected) Influenza Type B (PCR) Not Detected (NotDetected) M. pneumoniae (PCR) Not Detected (NotDetected) Parainfluenza 1 (PCR) Not Detected (NotDetected) Parainfluenza 2 (PCR) Not Detected (NotDetected) Parainfluenza 3 (PCR) Not Detected (NotDetected) Parainfluenza 4 (PCR) Not Detected (NotDetected) RSV (PCR) Not Detected (NotDetected) Entero/Rhino (PCR) DETECTED A (NotDetected) Administered Medications Acetaminophen (Acetaminophen 325 Mg Tab) 650 mg PO Q4H PRN PRN Reason: Pain or Fever Stop: 02/28/25 07:12 Last Admin: 01/29/25 08:21 Dose: 650 mg Documented By: FLACA Celecoxib (Celebrex 200 Mg Cap) 200 mg PO DAILY LETTY Stop: 02/28/25 08:59 Last Admin: 01/29/25 08:23 Dose: 200 mg Documented By: FLACA Duloxetine HCl (Duloxetine Hcl 60 Mg Cap) 60 mg PO DAILY LETTY Stop: 02/28/25 08:59 Last Admin: 01/29/25 08:23 Dose: 60 mg Documented By: FLACA Spironolactone (Spironolactone 25 Mg Tab) 50 mg PO BID LETTY Stop: 02/28/25 08:59 Last Admin: 01/29/25 08:22 Dose: 50 mg Documented By: FLACA Sulfasalazine (Sulfasalazine 500 Mg Tablet) 500 mg PO DAILY LETTY Stop: 02/28/25 08:59 Last Admin: 01/29/25 08:22 Dose: 500 mg Documented By: FLACA Discontinued Medications Amlodipine Besylate (Amlodipine Besylate 5 Mg Tab) 5 mg PO NOW ONE Stop: 01/29/25 05:21 Last Admin: 01/29/25 05:37 Dose: 5 mg Documented By: JESSICA Diphenhydramine HCl (Diphenhydramine 50 Mg/Ml Vial) 25 mg IV NOW STA Stop: 01/29/25 12:49 Last Admin: 01/29/25 13:23 Dose: 25 mg Documented By: PORFIRIO Fentanyl Citrate (Fentanyl Citrate Pf 100 Mcg/2 Ml Vial) 100 mcg IV NOW STA Stop: 01/29/25 03:18 Last Admin: 01/29/25 03:25 Dose: 100 mcg Documented By: JESSICA Prochlorperazine 10 mg/ (Syringe) 10 mls @ 5 mls/min IV ONE ONE Stop: 01/29/25 12:49 Last Admin: 01/29/25 13:23 Dose: 5 mls/min Documented By: PORFIRIO Ketorolac Tromethamine (Ketorolac Tromethamine 15 Mg/Ml Vial) 15 mg IV NOW STA Stop: 01/29/25 03:18 Last Admin: 01/29/25 03:25 Dose: 15 mg Documented By: JESSICA Ondansetron HCl (Ondansetron Inj 2 Mg/Ml 2 Ml Vial) 4 mg IV NOW STA Stop: 01/29/25 03:18 Last Admin: 01/29/25 03:26 Dose: 4 mg Documented By: JESSICA Imaging Data Radiologist's Impression: Chest X-Ray 01/29/25 03:05 EXAM: XR chest 1V portable CLINICAL HISTORY: Chest pain, nonspecific. TECHNIQUE: An X-ray image of the chest is obtained in AP projection. COMPARISON: 10/31/2023. FINDINGS: Pulmonary Parenchyma: Lungs are clear bilaterally. No evidence of consolidation, collapse, or focal opacities. No pulmonary nodules are identified. Prominent bronchovascular markings and both hilar shadows may be due to pulmonary congestion. Clinical correlation is advised. No evidence of pleural effusion or pleural thickening. Heart and Mediastinum: Heart size and shape are normal. No mediastinal widening or masses. No hilar or mediastinal lymphadenopathy. Bony Thorax: Bony thorax appears intact without fractures or deformities. Soft Tissues: Soft tissues overlying the chest wall are unremarkable. Elevated right diaphragmatic copula. IMPRESSION: 1. Prominent bronchovascular markings and both hilar shadows may be due to pulmonary congestion. Clinical correlation is advised. 2. Elevated right diaphragmatic copula. 3. No significant interval changes. Electronically signed by Nba Cohen 01-29-2025 03:59 AM Discharge Plan Visit Data Chief Complaint: Illness Stated Complaint: sore throat, chest pressure, sob ED Provider: Elina Feliz Discharge Problem: Acute bronchitis due to Rhinovirus, Substernal chest pain, Acute electrocardiogram changes Patient Disposition: Admitted As Inpatient Discharge Instructions Interventions: ED Discharge Assessment Last Done: 01/29/25 07:17
[2025-01-29] MEDS ORDERED: MELATONIN 3 MG TAB PO PRN (07:13)
[2025-01-29] MEDS ORDERED: ONDANSETRON INJ 2 MG/ML 2 ML VIAL IV PRN (07:13)
[2025-01-29] MEDS: ACETAMINOPHEN 325 MG TAB PO PRN (08:21)
[2025-01-29] MEDS: sulfaSALAzine 500 MG TABLET PO SCH (08:22)
[2025-01-29] MEDS: SPIRONOLACTONE 25 MG TAB PO SCH (08:22)
[2025-01-29] MEDS: CeleBREX 200 MG CAP PO SCH (08:23)
[2025-01-29] MEDS: DULoxetine HCL 60 MG CAP PO SCH (08:23)
[2025-01-29] MEDS: diphenhydrAMINE 50 MG/ML VIAL IV STA (13:23)
[2025-01-29] MEDS: PROCHLORPERAZINE 10 MG in SYRINGE 8 ML IV ONE (13:23)
--- NOTE | 2025-01-29 14:21 | Electrocardiogram Report ---
Test Reason : Blood Pressure : */* mmHG Vent. Rate : 87 BPM Atrial Rate : 87 BPM P-R Int : 132 ms QRS Dur : 122 ms QT Int : 410 ms P-R-T Axes : 44 51 52 degrees QTcB Int : 493 ms Normal sinus rhythm Right bundle branch block T wave abnormality, consider lateral ischemia Abnormal ECG When compared with ECG of 31-Oct-2023 11:40, Nonspecific T wave abnormality no longer evident in Inferior leads Inverted T waves have replaced nonspecific T wave abnormality in Lateral leads Confirmed by Lawson Louie ([id number]) on 01/29/2025 2:21:14 PM Referred By: REFERRED SELF Confirmed By: Lawson Louie
[2025-01-29] MEDS: LORazepam 0.5 MG TAB PO STA (18:24)
[2025-01-29] MEDS: AMITRIPTYLINE HCL 10 MG TAB PO SCH (20:37)
[2025-01-29] MEDS: MONTELUKAST SODIUM 10 MG TABLET PO SCH (20:37)
[2025-01-30] MEDS: ALBUT/IPRATROP 3MG/0.5MG NEB 3 ML VIAL NEB PRN (07:42)
[2025-01-30] MEDS: amLODIPine BESYLATE 5 MG TAB PO SCH (08:31)
[2025-01-30] MEDS: DOBUTamine HCL 12.5 MG/ML 20 ML VIAL IV ONE (10:37)
[2025-01-30] MEDS: ATROPINE SULFATE 0.1 MG/ML 10ML SYR IV ONE (10:37)
[2025-01-30] MEDS: METOPROLOL TARTRATE 1 MG/ML VIAL IV ONE (10:37)
--- NOTE | 2025-01-30 11:00 | XCELERA ---
[id number]
[2025-01-30 11:48] VITALS: BP 118/75; RESP 16; TEMP 98.4; O2SAT 91
[2025-01-30] MEDS: guaiFENesin 600 MG TABCR PO SCH (13:16)
[2025-01-30] MEDS: BENZONATATE 100 MG CAPSULE PO PRN (13:16)
[2025-01-30] MEDS ORDERED: COUGH DROP (SUGAR FREE) LOZ 24 LOZ/1 BOX BUCCAL PRN (15:16)
[2025-01-30 16:46] VITALS: PULSE 98
== END 2025-01-30 17:13 | disposition home or self-care (01) ==
LOC: SUATTDRO → EDINP 02:41 → ED 02:41 → SUATTDRO 05:08 → 2W 07:17